=== PATIENT | male | born 1985 | race Caucasian/White ===

== ENCOUNTER 2016-06-19 18:22 | Emergency (ER) | payer MEDICARE, MEDICAID ==
[~2016-06-19] VITALS: Ht 182.9 cm; Wt 96.3 kg
[~2016-06-19 18:22] MED LIST: ACET-62 PO; ATEN50TA PO; IBUP-1724 PO; PROC-14 PO; QUET300T71 PO; SUVO10TA PO; VORT5TAB PO
[2016-06-19 18:25] VITALS: Ht 182.9 cm; Wt 96.3 kg
--- OUTSIDE RECORDS SUMMARY | 2016-06-19 18:27 | XMS REPORT | Continuity of Care Document ---
Author Author [facility] Address Unknown Phone Unavailable Care Team Providers Care Senior Technologist Name Role Phone CLINIC, [facility] Primary Care Physician [phone] Insurance Providers Guarantor Jennifer Singh Address [address] [facility] [address] [place] [address] Payer [facility] Plan Policy Number [id number] Subscriber's Name Jennifer Singh Relationship 01 Self / Same As Patient Payer [facility] Ppo/Hmo Policy Number [id number] Subscriber's Name Jennifer Singh Relationship 01 Self / Same As Patient Group Number [id number] Chief Complaint and Reason for Visit Chief Complaint Abdominal Pain Reason for Visit Drug abuse Hematuria Problems Active Problems Medical Problem Onset Date Status Infection kidney Unknown Acute Pyelonephritis acute Unknown Acute Renal colic on left side Unknown Acute Right flank pain Unknown Acute Ureterolithiasis Unknown Acute Ureterolithiasis Unknown Acute Past Problems Medical Problem Onset Date Abdominal pain Unknown Abdominal pain Unknown Dehydration Unknown Diarrhea Unknown Drug abuse Unknown Hematuria Unknown Hematuria Unknown Hematuria Unknown Hematuria Unknown History of colitis Unknown History of nephrolithiasis Unknown History of nephrolithiasis Unknown LLQ abdominal pain Unknown Low back pain Unknown Nausea and vomiting Unknown Nausea and vomiting Unknown RLQ abdominal pain Unknown RLQ abdominal pain Unknown Right flank pain Unknown UTI (urinary tract infection) Unknown UTI (urinary tract infection) Unknown Ulcerative colitis Unknown Urinary tract infection Unknown Urinary tract infection Unknown Medications Current Home Medications Medication Dose Units Route Directions Days Qty Instructions Start Date Atenolol 50 Mg Tab 50 Mg Oral Daily 08/17/15 Ciprofloxacin Hcl (Cipro) 500 Mg Tab 500 Mg Oral Twice A Day for Uti 14 Tablet 04/27/16 Diltiazem Hcl (Cardizem Cd) 240 Mg Capcr 240 Mg Oral Bedtime for Hypertension 10/31/13 Ondansetron (Zofran Odt) 4 Mg Tab 4 Mg Oral Every 6 Hours as needed for Nausea 8 Tablet 04/16/16 Oxycodone/Acetaminophen (Percocet) 5/325 Tab 1 Tab Oral Every 6 Hours as needed for Pain 10 Tablet 04/16/16 Propranolol Hcl (Propranolol Hcl 10MG) 10 Mg Tab 10 Mg Oral Twice A Day for Migraine 10/31/13 Quetiapine Fumarate (Seroquel) 200 Mg Tab 200 Mg Oral Bedtime 10/24 Sulfamethoxazole-Trimethoprim (Bactrim Ds) 1 Tab Tab 1 Tab Oral Twice A Day for Bactinf 14 Tablet 02/20/16 Sulfamethoxazole-Trimethoprim (Bactrim Ds) 1 Tab Tab 1 Tab Oral Twice A Day for Bactinf 14 Tablet 04/16/16 Past Home Medications Medication Directions Ordered Status Ciprofloxacin Hcl (Cipro) 500 Mg Tab, 500 Mg Oral Twice A Day for Bactinf 10/24 Discontinued Ciprofloxacin Hcl (Cipro) 500 Mg Tab, 500 Mg Oral Twice A Day 03/20/13 Discontinued Ciprofloxacin Hcl (Cipro) 500 Mg Tab, 500 Mg Oral Twice A Day 02/20/13 Discontinued Social History Social History Problem Response Recorded Date/Time Onset Date Status Hx Substance Use No 10/31/2013 3:44pm Not Applicable Not Applicable Smoking Status Former smoker 04/27/2016 9:59pm Not Applicable Not Applicable Query Response Start Date Stop Date Smoking Status Former smoker Hospital Discharge Instructions No hospital discharge instructions. Plan of Care Discharge Date 04/27/16 11:58pm Disposition 01 HOME, SELF-CARE Condition at Discharge Stable Instructions/Education Provided Urinary Tract Infection in Men (ED) Prescriptions See Medication Section Referrals [facility] Address: [address] [place] [address] Additional Instructions/Education follow up with your doctor tomorrow. Functional Status No functional status results. Allergies, Adverse Reactions, Alerts Allergen Type Severity Reaction Status Last Updated Codeine ([id number]) Allergy Intermediate Active 01/10/14 Dextromethorphan ([id number]) Adverse Reaction Mild KEEPS ME WIDE AWAKE Active 08/19/15 Diphenhydramine (H3393611766) Allergy Unknown Active 02/20/16 Doxylamine ([id number]) Adverse Reaction Mild KEEPS ME WIDE AWAKE Active 08/19/15 Haloperidol (H1917510276) Adverse Reaction Intermediate Change in Vital Signs Active 04/16/16 Morphine ([id number]) Allergy Mild HIVES Active 12/25/15 Pseudoephedrine (U2532057092) Adverse Reaction Mild KEEPS ME WIDE AWAKE Active 08/19/15 Ketorolac (U9327722349) Allergy Mild Active 01/10/14 Tramadol (M1309086120) Allergy Unknown HIVES PER PT 12/25/15 Active CI Pigment Blue 63 ([id number]) Allergy Unknown HIVES Active 04/16/16 Duloxetine (P5225938687) Allergy Unknown hives Active 08/18/15 Ketorolac Tromethamine (C0651220969) Allergy Unknown HIVES Active 04/16/16 PLASTIC TAPE Adverse Reaction Mild SKIN Active 03/08/14 Immunizations No immunization records. Vital Signs Acute Vital Signs Vital Response Date/Time Blood Pressure 133/89 mm Hg 04/27/2016 9:59pm Blood Pressure Mean 103 mm Hg 11/01/2013 11:30am Blood Pressure Mean 104 mm Hg 04/27/2016 9:59pm Temperature (Fahrenheit) 98.3 degrees F (96.0 - 99.9) 04/27/2016 9:59pm Temperature (Calculated Celsius) 36.29130 degrees C 04/27/2016 9:59pm Temperature Source Oral 11/01/2013 11:32am Temperature Source Oral 04/27/2016 9:59pm Temp 97.0 degrees F (96.0 - 99.9) 11/01/2013 11:39am Temperature (Calculated Celsius) 36.95985 degrees C 11/01/2013 11:39am Pulse Pulse Rate (adult) 100 bpm (60 - 100) 11/01/2013 12:00pm Pulse Rate (adult) 93 bpm (60 - 100) 11/01/2013 11:30am Pulse Rate: ED 123 bpm 04/27/2016 9:59pm Respiratory Rate 18 breaths per minute (10 - 20) 04/27/2016 9:59pm Respiratory Rate 14 bpm (10 - 20) 11/01/2013 11:30am Height (Feet) 6 ft 04/27/2016 9:59pm Height (Inches) 0 in. 04/27/2016 9:59pm Weight (Pounds) 225.0 lbs 04/27/2016 9:59pm Height 6 ft 0 in 04/27/2016 9:59pm Weight 225 lb 04/27/2016 9:59pm Body Mass Index 30.5 kg/m^2 04/27/2016 9:59pm Results Laboratory Results Test Name Result Units Flags Reference Collection Date/Time Result Date/ Time Comments Immature Platelet Fraction 4.5 % 2.3-13.4 03/08/2014 11:30pm 2014 12:14am Urine WBC Clumps NONE /hpf NONE 03/08/2014 11:30pm 03/09/2014 12:00am Urine Crystals NONE /hpf NONE 03/08/2014 11:30pm 03/09/2014 12:00am Urine Casts NONE /lpf NONE 03/08/2014 11:30pm 03/09/2014 12:00am Urine Other NONE 03/08/2014 11:30pm 03/09/2014 12:00am Urine Amorphous Sediment 3+ 12/25/2015 4:25pm 12/25/2015 5:24pm Urine Mucus 2+ /lpf NONE 04/16/2016 12:52am 04/16/2016 1:59am White Blood Count 8.8 K/uL 5.0-10.0 04/27/2016 10:20pm 04/27/2016 10: 47pm Red Blood Count 5.19 M/uL 4.60-5.40 04/27/2016 10:20pm 04/27/2016 10: 47pm Hemoglobin 14.5 g/dL 14.0-18.0 04/27/2016 10:20pm 04/27/2016 10:47pm Hematocrit 42.5 % 40.0-54.0 04/27/2016 10:20pm 04/27/2016 10:47pm Mean Corpuscular Volume 81.9 fL 80.0-94.0 04/27/2016 10:20pm 2016 10:47pm Mean Corpuscular Hemoglobin 27.9 pg 26.0-33.0 04/27/2016 10:202016 10:47pm Mean Corpuscular Hemoglobin Concent 34.1 g/dL 31.0-36.0 04/27/2016 10: 2004/27/2016 10:47pm Red Cell Distribution Width 14.2 % 11.5-14.5 04/27/2016 10:202016 10:47pm RDW Standard Deviation 41.7 fL 35.1-43.9 04/27/2016 10:20pm 04/27/2016 10:47pm Platelet Count 367 K/uL 130-400 04/27/2016 10:20pm 04/27/2016 10:47pm Mean Platelet Volume 10.0 fL 7.0-11.0 04/27/2016 10:20pm 04/27/2016 10: 47pm Neutrophils (%) (Auto) 58.6 % 42.0-75.0 04/27/2016 10:20pm 04/27/2016 10:47pm Lymphocytes (%) (Auto) 33.4 % 16.0-44.0 04/27/2016 10:04/27/2016 10:47pm Monocytes (%) (Auto) 5.7 % 2.0-9.0 04/27/2016 10:pm 04/27/2016 10: 47pm Eosinophils (%) (Auto) 1.6 % 0-7.0 04/27/2016 10:04/27/2016 10: 47pm Basophils (%) (Auto) 0.5 % 0-1 04/27/2016 10:04/27/2016 10:47pm Immature Granulocyte % (Auto) 0.2 % 0-0.5 04/27/2016 10:2016 10:47pm Nucleated Red Blood Cells % 0.0 /100WBC 0-0 04/27/2016 10:2016 10:47pm Neutrophils # (Auto) 5.1 K/uL 1.9-8.0 04/27/2016 10:04/27/2016 10: 47pm Lymphocytes # (Auto) 2.9 K/uL 0.9-5.2 04/27/2016 10:pm 04/27/2016 10: 47pm Monocytes # (Auto) 0.5 K/uL 0.16-1.0 04/27/2016 10:20pm 04/27/2016 10: 47pm Eosinophils # (Auto) 0.1 K/uL 0-0.8 04/27/2016 10:20pm 04/27/2016 10: 47pm Basophils # (Auto) 0.0 K/uL 0-0.2 04/27/2016 10:20pm 04/27/2016 10: 47pm Immature Granulocyte # (Auto) 0.02 K/uL 0-0.40 04/27/2016 10:20pm 04/27 10:47pm Nucleated Red Blood Cells # 0.00 K/uL 0.0-0.012 04/27/2016 10:20pm 10:47pm Urine Color BROWNISH YELLOW 04/27/2016 10:06pm 04/27/2016 10:54pm Urine Appearance CLOUDY 04/27/2016 10:06pm 04/27/2016 10:54pm Urine Glucose (UA) NEGATIVE NEGATIVE 04/27/2016 10:06pm 04/27/2016 10 :54pm Urine Bilirubin NEGATIVE NEGATIVE 04/27/2016 10:06pm 04/27/2016 10: 54pm Urine Ketones NEGATIVE NEGATIVE 04/27/2016 10:06pm 04/27/2016 10: 54pm Urine Specific [place] >=1.030 1.005-1.030 04/27/2016 10:06pm 2016 10:54pm Urine Occult Blood 3+ H NEGATIVE 04/27/2016 10:06pm 04/27/2016 10: 54pm Urine pH 5.5 4.5-8.0 04/27/2016 10:06pm 04/27/2016 10:54pm Urine Protein TRACE H NEGATIVE 04/27/2016 10:06pm 04/27/2016 10:54pm Urine Urobilinogen 0.2 E.U./dL 0.2-1.0 04/27/2016 10:06pm 04/27/2016 10 :54pm Urine Nitrate NEGATIVE NEGATIVE 04/27/2016 10:06pm 04/27/2016 10: 54pm Urine Leukocyte Esterase TRACE H NEGATIVE 04/27/2016 10:06pm 2016 10:54pm Urine RBC >100 /hpf H NONE 04/27/2016 10:06pm 04/27/2016 10:55pm Urine WBC 1-3 /hpf NONE 04/27/2016 10:06pm 04/27/2016 10:55pm Urine Epithelial Cells 50-75 /lpf 04/27/2016 10:06pm 04/27/2016 10: 55pm Urine Bacteria 1+ /hpf H NONE 04/27/2016 10:06pm 04/27/2016 10:55pm Random Glucose 112 mg/dL 65-115 04/27/2016 10:2004/27/2016 11:02pm Blood Urea Nitrogen 15 mg/dL 8-25 04/27/2016 10:20pm 04/27/2016 11: 02pm Creatinine 0.92 mg/dL 0.9-1.6 04/27/2016 10:20pm 04/27/2016 11:02pm Glomerular Filtration Rate Calc 97.27 mL/min 04/27/2016 10:2004/27 11:02pm MULTIPLY RESULT BY 1.210 IF THE PATIENT IS -ALBAN[place] Units are mL/min/1.73 m2 > 60 Normal kidney function 30-59 Moderately decreased kidney function 15-29 Severely decreased kidney function <15 End-stage kidney failure BUN/Creatinine Ratio 16.3 04/27/2016 10:20pm 04/27/2016 11:02pm Sodium Level 138 mEq/L 133-145 04/27/2016 10:20pm 04/27/2016 11:02pm Potassium Level 3.6 mEq/L 3.5-5.1 04/27/2016 10:2004/27/2016 11: 02pm Chloride Level 105 mEq/L 98-116 04/27/2016 10:2004/27/2016 11:02pm Carbon Dioxide Level 26 mEq/L 22-34 04/27/2016 10:2004/27/2016 11: 02pm Anion Gap 10.6 6-13 04/27/2016 10:2004/27/2016 11:02pm Calcium Level 9.9 mg/dL 8.2-10.6 04/27/2016 10:2004/27/2016 11:02pm Total Protein 7.6 gm/dL 6.0-8.4 04/27/2016 10:20pm 04/27/2016 11:02pm Albumin 4.3 gm/dL 3.2-5.0 04/27/2016 10:20pm 04/27/2016 11:02pm Globulin 3.3 gm/dL H 2.0-3.0 04/27/2016 10:20pm 04/27/2016 11:02pm Albumin/Globulin Ratio 1.3 L 1.4-2.4 04/27/2016 10:20pm 04/27/2016 11: 02pm Total Bilirubin 0.7 mg/dL 0.1-1.3 04/27/2016 10:20pm 04/27/2016 11: 02pm Alkaline Phosphatase 86 U/L 35-125 04/27/2016 10:20pm 04/27/2016 11: 02pm Aspartate Amino Transf (AST/SGOT) 28 U/L 540 04/27/2016 10:20pm 2016 11:02pm Alanine Aminotransferase (ALT/SGPT) 24 U/L 540 04/27/2016 10:20pm 11:02pm Lipase 41 U/L 8-57 04/27/2016 10:20pm 04/27/2016 11:02pm Urine Amphetamines Screen Negative NEGATIVE 04/27/2016 10:06pm 2016 11:02pm Urine Methamphetamines Screen Negative NEGATIVE 04/27/2016 10:06pm 11:02pm Urine Barbiturates Screen Negative NEGATIVE 04/27/2016 10:06pm 2016 11:02pm Urine Benzodiazepines Screen Negative NEGATIVE 04/27/2016 10:06pm 11:02pm Urine Cocaine Screen Negative NEGATIVE 04/27/2016 10:06pm 04/27/2016 11:02pm Urine Methadone Screen Negative NEGATIVE 04/27/2016 10:06pm 2016 11:02pm Urine Opiates Screen Negative NEGATIVE 04/27/2016 10:06pm 04/27/2016 11:02pm Urine Phencyclidine Screen Negative NEGATIVE 04/27/2016 10:06pm 04/27 11:02pm Urine Propoxyphene Screen Negative NEGATIVE 04/27/2016 10:06pm 2016 11:02pm Ur Tetrahydrocannabinol (THC) Scrn POSITIVE NEGATIVE 04/27/2016 10: 06pm 04/27/2016 11:02pm Ur Tricyclic Antidepressants Screen Negative NEGATIVE 04/27/2016 10: 06pm 04/27/2016 11:02pm Urine Buprenorphine NEGATIVE NEGATIVE 04/27/2016 10:06pm 04/27/2016 11:02pm Urine Oxycodone Screen NEGATIVE NEGATIVE 04/27/2016 10:06pm 2016 11:02pm Bedside Glucose 113 mg/dL 70-120 11/01/2013 7:26am 11/01/2013 7:29am Notify medical staff Microbiology Results Procedure Source Organism/Result Collection Date/Time Result Date/Time Result Status Urine Culture Urine,Clean Catch >100,000 CFU/ML MIXED BODY GABBY AFTER 2 DAYS 04/16/2016 12:52am 04/18/2016 8:01am Final Procedures Procedure Status Date Provider(s) THER/PROPH/DIAG INJ IV PUSH Completed 03/08/14 JANIE JESUS M.D. TX/PRO/DX INJ NEW DRUG ADDON Completed 03/08/14 JANIE JESUS M.D. THER/PROPH/DIAG INJ IV PUSH Completed 08/17/15 GIUSEPPE,TREMAYNE Quintanilla D.O. TX/PRO/DX INJ NEW DRUG ADDON Completed 08/17/15 GIUSEPPE,TREMAYNE Quintanilla D.O. HYDRATE IV INFUSION ADD-ON Completed 08/17/15 GIUSEPPE,TREMAYNE Quintanilla D.O. THER/PROPH/DIAG INJ IV PUSH Completed 09/28/15 FROILAN MARQUES M.D. TX/PRO/DX INJ NEW DRUG ADDON Completed 09/28/15 FROILAN MARQUES M.D. TX/PRO/DX INJ NEW DRUG ADDON Completed 09/28/15 FROILAN MARQUES M.D. HYDRATE IV INFUSION ADD-ON Completed 09/28/15 FROILAN MARQUES M.D. THER/PROPH/DIAG INJ IV PUSH Completed 10/05/15 GIUSEPPE,TREMAYNE Quintanilla D.O. HYDRATE IV INFUSION ADD-ON Completed 10/05/15 BIBIILLOT,TREMAYNE Quintainlla D.O. HYDRATE IV INFUSION ADD-ON Completed 10/05/15 BIBIILLOT,TREMAYNE Quintanilla D.O. THER/PROPH/DIAG INJ IV PUSH Completed 12/25/15 JUANPABLO AUGUSTE M.D. TX/PRO/DX INJ NEW DRUG ADDON Completed 12/25/15 JUANPABLO AUGUSTE M.D. HYDRATE IV INFUSION ADD-ON Completed 12/25/15 JUANPABLO AUGUSTE M.D. THER/PROPH/DIAG INJ SC/IM Completed 12/25/15 JUANPABLO AUGUSTE M.D. THER/PROPH/DIAG INJ IV PUSH Completed 12/30/15 JUANPABLO AUGUSTE M.D. TX/PRO/DX INJ NEW DRUG ADDON Completed 12/30/15 JUANPABLO AUGUSTE M.D. TX/PRO/DX INJ SAME DRUG AZURE ARCHITECT Completed 12/30/15 JUANPABLO AUGUSTE M.D. HYDRATE IV INFUSION ADD-ON Completed 12/30/15 JUANPABLO AUGUSTE M.D. THER/PROPH/DIAG INJ SC/IM Completed 12/30/15 JUANPABLO AUGUSTE M.D. THER/PROPH/DIAG INJ IV PUSH Completed 02/20/16 FROILAN MARQUES M.D. TX/PRO/DX INJ NEW DRUG ADDON Completed 02/20/16 FROILAN MARQUES M.D. HYDRATE IV INFUSION ADD-ON Completed 02/20/16 FROILAN MARQUES M.D. KNEE ARTHROSCOPY/SURGERY Completed 11/01/13 JOSHUA CARTWRIGHT M.D. Repair of knee cruciate ligaments (procedure) Completed 11/01/13 JOSHUA CARTWRIGHT M.D. Encounters Encounter Location Arrival/Admit Date Discharge/Depart Date Attending Provider Departed Emergency Room [facility] 04/27/16 9:58pm 11:58pm YOSEPH BAUTISTA M.D. Departed Emergency Room [facility] 04/16/16 12:41am 2:28am JUANPABLO AUGUSTE M.D. Departed Emergency Room [facility] 02/20/16 7:38pm 9:25pm FROILAN MARQUES M.D. Departed Emergency Room [facility] 12/30/15 9:03pm 11:30pm JUANPABLO AUGUSTE M.D. Departed Emergency Room [facility] 12/25/15 4:13pm 6:02pm JUANPABLO AUGUSTE M.D. Departed Emergency Room [facility] 10/05/15 4:37pm 6:42pm TREMAYNE CHIN D.O. Departed Emergency Room [facility] 09/28/15 5:43pm 11:02pm FROILAN MARQUES M.D. Departed Emergency Room [facility] 08/17/15 2:20pm 4:45pm TREMAYNE CHIN D.O. Departed Emergency Room [facility] 03/10/15 8:26pm 10:08pm CARLOS ORTA M.D. Departed Emergency Room [facility] 09/25/14 6:47pm 9:00pm CARLOS ORTA M.D. Departed Emergency Room [facility] 03/12/14 7:27pm 8:59pm CARLOS ORTA M.D. Departed Emergency Room [facility] 03/08/14 11:08pm 1:03am JANIE JESUS M.D. Departed Surgical Day Care [facility] 11/01/13 7:10am 12:12pm JOSHUA CARTWRIGHT M.D. Recent Diagnosis
--- OUTSIDE RECORDS SUMMARY | 2016-06-19 18:27 | XMS REPORT ---
Author Author [place] [facility] - Organization Unknown Address Unknown Phone Unavailable Allergies, Adverse Reactions, Alerts * Cymbalta causes Adverse Reaction. * Haldol causes Adverse Reaction. * NyQuil causes Severe Adverse Reaction, Severe Adverse Reaction, Severe Adverse Reaction and Severe Adverse Reaction. Onset Adulthood. * Codeine causes Unknown tachycardia. Onset Adulthood. * Toradol causes Unknown Adverse Reaction. * Tape (as Environmental allergen) causes Severe Adverse Reaction. Onset Adulthood. * No Latex Allergy. * No IV Contrast Allergy. * No Known Food Allergies. Problems * Abdominal Pain* Status:Inactive. * Anxiety* Status:Active. * Crohn's Disease* Status:Inactive. * Depression* Status:Active. * Difficulty Sleeping* Status:Inactive. * Difficulty Sleeping* Status:Resolved. * Drug Overdose* Status:Resolved. * Drug Overdose - Suicide* Status:Inactive. * Hypertensive Disorder* Status:Inactive. * Kelly* Status:Inactive. * Ulcerative Colitis* Status:Active. Procedures No relevant procedures performed. Medication Medication reconciliation has not been performed. Results LAB--URINE TESTS from 08/31/2012 4:11 PMAppearance Turbid A Bilirubin Negative (Negative ) Blood Pos 3+ A (Negative ) Color [place]anner A Glucose Negative (Negative ) Ketones, Urine Pos 2+ A (Negative ) Leukocytes Esterase Negative (Negative ) Nitrites Negative (Negative ) pH, Urine 7.0 (5.0-8.0 ) Protein Pos 1+ A (Negative ) Specific [place] 1.027 (1.003-1.030 ) Collection Type: Clean Catch Urobilinogen Negative mg/dL (-<1.0 mg/dL) Bacteria Numerous A Crystals Ca Ox Crystals Amorphous Epithelial Cells 0-2 /HPF Mucus Present RBC >50 /HPF A (0-2 /HPF) WBC 5-10 /HPF A (0-4 /HPF)
--- OUTSIDE RECORDS SUMMARY | 2016-06-19 18:29 | XMS REPORT | Continuity of Care Document ---
Author Author [facility] Organization [facility] Address Unknown Phone Unavailable Care Team Providers Care Health Education Coordinator Name Role Phone GERONIMO DOYLE MD Primary Care Physician [phone] Insurance Providers Payer Name Policy Number Subscriber Name Relationship Medicare [id number] Jennifer Singh Self [facility] [id number] Jennifer Singh 20 Self Advance Directives Directive Response Recorded Date/Time Advanced Directives Type None 04/20/14 10:00pm Problems Medical Problems Problem Onset Date Status Nephrolithiasis Unknown Active Renal colic Unknown Active Rectal bleeding Unknown Active Acute Crohn's disease Unknown Active Abdominal pain Unknown Active Crohn disease Unknown Active Crohn disease Unknown Active Abdominal pain Unknown Active Hematuria Unknown Active Flank pain Unknown Active Abdominal pain Unknown Active Hematuria Unknown Active Hematuria Unknown Active Abdominal pain Unknown Active Hematuria Unknown Active Enteritis Unknown Active UTI (urinary tract infection) Unknown Active Hematuria Unknown Active Medications Medication Dose Route Sig Days/Qty Instructions Order Date Discontinued Date Status Fluoxetine HCl 40 Mg PO DAILY 02/18/14 Active Nebivolol HCl 20 Mg PO DAILY 02/18/14 Active Diltiazem HCl 240 Mg PO DAILY 02/18/14 Active Acetaminophen Unknown Dose PO 02/21/14 Active Ibuprofen Unknown Dose PO Q4H PRN 02/21/14 Active Sucralfate 1 G PO BEFORE MEALS AND AT BEDTIME Take 1 tablet, by mouth, 4 times a day (Before EACH meal and 04/17/14 Active Celecoxib 1 Cap PO TWICE A DAY 04/17/14 Active Meloxicam 7.5 Mg PO DAILY PRN PRN ORDERS 04/17/14 Active Propranolol HCl 10 Mg PO BEDTIME 04/17/14 Active Quetiapine Fumarate 2 Tab PO BEDTIME Take 2 (300 mg) tablets, by mouth, once a day at bedtime. 04/17/14 Active Sulfasalazine 1,000 Mg PO THREE TIMES A DAY 04/17/14 Active Tizanidine HCl 1 BEDTIME 04/17/14 Active Diazepam 1 THREE TIMES A DAY 04/17/14 Active Olanzapine 10 Mg PO BEDTIME Take one tablet, by mouth, daily at bedtime. 04/17/14 Active Zonisamide 300 Mg BEDTIME 04/17/14 Active Metronidazole 500 Mg PO Q6H/0300,0900,1500,2100 For ENTERITIS 7 Days Active Hydrocodone/Acetaminophen 1 Tab PO EVERY 4-6 HOURS For PAIN 12 Qty Active Social History Social History Problem Response Recorded Date/Time Chewing Tobacco Status No 03/09/2013 1:23am Hx Substance Use No 04/20/2014 10:00pm Hx Alcohol Use No 04/20/2014 10:00pm Tobacco Usage none 02/18/2014 7:57pm Query Response Start Date Stop Date Smoking Status Unknown if ever smoked Hospital Discharge Instructions No hospital discharge instructions. Plan of Care No plan of care. Functional Status Query Response Date Recorded Physical Hygiene Self April 20, 2014 10:00pm Disabilities None April 20, 2014 10:00pm Devices Used None April 20, 2014 10:00pm Dressing Self April 20, 2014 10:00pm Ambulation Self April 20, 2014 10:00pm Diet Self April 20, 2014 10:00pm Mental Status Alert Oriented April 20, 2014 10:00pm Disabilities None April 20, 2014 10:00pm Devices Used None April 20, 2014 10:00pm Physical Hygiene Self April 20, 2014 10:00pm Dressing Self April 20, 2014 10:00pm Ambulation Self April 20, 2014 10:00pm Diet Self April 20, 2014 10:00pm Allergies, Adverse Reactions, Alerts Allergen Type Severity Reaction Status Last Updated dextromethorphan HBr Allergy Severe THROAT SWELLING, HIVES Active 04/20/14 pseudoephedrine HCl Allergy Severe THROAT SWELLING, HIVES Active 04/20/14 Haloperidol Allergy Unknown RASH Active 04/20/14 Codeine Allergy Severe Active 04/20/14 Doxylamine Allergy Severe THROAT SWELLING, HIVES Active 04/20/14 Ketorolac Allergy Unknown RASH Active 04/20/14 Duloxetine Allergy Unknown RASH Active 04/20/14 PLASTIC TAPE Allergy Mild Active 02/21/14 Immunizations Name Given Type Hx Influenza Vaccination Y FALL 2013 Historical Hx Influenza Vaccination Y FALL 2013 Historical Vital Signs Acute Vital Signs Vital Response Date/Time Temperature (Fahrenheit) 96.8 deg F (96.8 - 99.1) Temperature (Calculated Celsius) 36.01232 degrees C (36.0 - 37.3) Pulse Rate (adult) 86 bpm (60 - 100) Respiratory Rate 24 breaths/min (10 - 20) O2 Sat by Pulse Oximetry 94 % (90 - 100) Blood Pressure 118/90 mm Hg Height 5 ft 11 in Weight 222 lb Body Mass Index 31.0 kg/m^2 Results Test Source Date Result Interp. Ref. Range Comments Alanine Aminotransferase (ALT/SGPT) April 20, 2014 10:55pm 50 U/L N 21- 72 Albumin April 20, 2014 10:55pm 4.6 G/DL N 3.5-5.0 Albumin/Globulin Ratio April 20, 2014 10:55pm 1.6 RATIO N 1.1-2.2 Alkaline Phosphatase April 20, 2014 10:55pm 98 U/L N 38-126 Amylase Level April 20, 2014 10:55pm 72 U/L N 30-110 Anion Gap April 20, 2014 10:55pm 15 MEQ/L N 5-15 Aspartate Amino Transf (AST/SGOT) April 20, 2014 10:55pm 30 U/L N 17-59 BUN/Creatinine Ratio April 20, 2014 10:55pm 17 RATIO N 6-26 Basophils # (Auto) April 20, 2014 10:55pm 0.0 T/MM3 N 0-0.2 Basophils (%) (Auto) April 20, 2014 10:55pm 0.3 % N 0-2 Blood Urea Nitrogen April 20, 2014 10:55pm 17.0 MG/DL N 9-20 Calcium Level April 20, 2014 10:55pm 10.1 MG/DL N 8.4-10.2 Calculated Osmolality April 20, 2014 10:55pm 288 MOSM/KG H 261-280 Carbon Dioxide Level April 20, 2014 10:55pm 25 MEQ/L N 22-30 Chemistry Specimen Hemolysis April 20, 2014 10:55pm < 15 0-25 0-25: No Hemolysis.26-70: Slight Hemolysis - can falsely elevate K and Urine Protein. 71-285: Moderate Hemolysis - can falsely elevate K, Troponin I, CA 19-9, PTH, CSF GLucose, and Urine Protein, and can falsely decrease Phenytoin. 286-999: Gross Hemolysis - can falsely elevate K, Troponin I, CA 19-9, PTH, CSF Glucose, and Urine Protine, and can falsely decrease Phenytoin. Recommend specimen recollection. Chloride Level April 20, 2014 10:55pm 109 MEQ/L H 98-107 Creatinine April 20, 2014 10:55pm 1.0 MG/DL N 0.8-1.5 Eosinophils # (Auto) April 20, 2014 10:55pm 0.2 T/MM3 N 0-0.5 Eosinophils # (Manual) February 22, 2014 12:30am 0.1 T/MM3 N 0-0.5 Eosinophils % (Manual) February 22, 2014 12:30am 1.0 % N 0-4 Eosinophils (%) (Auto) April 20, 2014 10:55pm 1.1 % N 0-4 Globulin April 20, 2014 10:55pm 2.8 G/DL N 2.4-3.6 Glomerular Filtration Rate Calc April 20, 2014 10:55pm 90 - Glucose Level April 20, 2014 10:55pm 95 MG/DL N 75-110 Hematocrit April 20, 2014 10:55pm 43.6 % N 41-53 Hemoglobin April 20, 2014 10:55pm 15.2 GM/DL N 13.5-17.5 Icterus Index April 20, 2014 10:55pm < 2 0-7 Immature Granulocyte # (Auto) April 20, 2014 10:55pm 0.03 T/MM3 N 0.00- 0.03 Immature Granulocyte % (Auto) April 20, 2014 10:55pm 0.2 % N 0.0-0.5 Lab Scanned Report September 26, 2009 9:28am REFERENCE LAB [id number] - Lipase April 20, 2014 10:55pm 136 U/L N 23-300 Lymphocytes # (Auto) April 20, 2014 10:55pm 1.9 T/MM3 N 1-4.8 Lymphocytes # (Manual) February 22, 2014 12:30am 3.8 T/MM3 N 1-4.8 Lymphocytes % (Manual) February 22, 2014 12:30am 37.0 % N 23-45 Lymphocytes (%) (Auto) April 20, 2014 10:55pm 13.0 % L 23-45 Mean Corpuscular Hemoglobin April 20, 2014 10:55pm 31.4 UUG N 26-34 Mean Corpuscular Hemoglobin Concent April 20, 2014 10:55pm 34.9 GM/DL N 31-37 Mean Corpuscular Volume April 20, 2014 10:55pm 90.1 UM3 N 80-100 Mean Platelet Volume April 20, 2014 10:55pm 9.4 UM3 N 9.4-12.4 Monocytes # (Auto) April 20, 2014 10:55pm 1.1 T/MM3 H 0-0.8 Monocytes # (Manual) February 22, 2014 12:30am 0.3 T/MM3 N 0-0.8 Monocytes % (Manual) February 22, 2014 12:30am 3.0 % N 0-9.0 Monocytes (%) (Auto) April 20, 2014 10:55pm 7.2 % N 0-9.0 Neutrophils # (Auto) April 20, 2014 10:55pm 11.7 T/MM3 H 1.8-7.7 Neutrophils # (Manual) February 22, 2014 12:30am 6.1 T/MM3 N 1.8-7.7 Neutrophils % (Manual) February 22, 2014 12:30am 59.0 % N 33-66 Neutrophils (%) (Auto) April 20, 2014 10:55pm 78.2 % H 33-66 Platelet Count April 20, 2014 10:55pm 290 T/MM3 N 130-400 Potassium Level April 20, 2014 10:55pm 4.2 MEQ/L N 3.6-5 RDW Standard Deviation April 20, 2014 10:55pm 44.7 FL N 36.9-50.2 Red Blood Count April 20, 2014 10:55pm 4.84 M/MM3 N 4.50-5.90 Sodium Level April 20, 2014 10:55pm 149 MEQ/L H 134-144 Total Bilirubin April 20, 2014 10:55pm 0.40 MG/DL N 0.20-1.30 Total Protein April 20, 2014 10:55pm 7.4 G/DL N 6.3-8.2 Turbidity April 20, 2014 10:55pm < 20 0-20 Urinalysis Comment February 18, 2014 8:30pm Microscopic not ind. - Has specimen been collected/obtained? Y Urine Bacteria April 20, 2014 10:10pm 2+ H - Has specimen been collected/obtained? Y Urine Bilirubin April 20, 2014 10:10pm Negative - Has specimen been collected/obtained? Y Urine Blood April 20, 2014 10:10pm 3+ H - Has specimen been collected/ obtained? Y Urine Collection Type April 20, 2014 10:10pm Voided-not cc-midstr - Has specimen been collected/obtained? Y Urine Color April 20, 2014 10:10pm Yellow - Has specimen been collected/obtained? Y Urine Culture Indicated February 22, 2014 12:15am Cult reflexed &setup - Has specimen been collected/obtained? Y Urine Glucose (UA) April 20, 2014 10:10pm Negative - Has specimen been collected/obtained? Y Urine Ketones April 20, 2014 10:10pm Negative - Has specimen been collected/obtained? Y Urine Leukocyte Esterase April 20, 2014 10:10pm Negative - Has specimen been collected/obtained? Y Urine Nitrite April 20, 2014 10:10pm Negative - Has specimen been collected/obtained? Y Urine Protein April 20, 2014 10:10pm Trace H - Has specimen been collected/obtained? Y Urine RBC April 20, 2014 10:10pm 20-30 /HPF H - Has specimen been collected/obtained? Y Urine Specific [place] April 20, 2014 10:10pm >=1.030 H - Has specimen been collected/obtained? Y Urine Squamous Epithelial Cells April 20, 2014 10:10pm 20-50 - Has specimen been collected/obtained? Y Urine Turbidity April 20, 2014 10:10pm Sl cloudy - Has specimen been collected/obtained? Y Urine Urobilinogen April 20, 2014 10:10pm 0.2 EU/DL - Has specimen been collected/obtained? Y Urine WBC April 20, 2014 10:10pm 5-10 /HPF H - Has specimen been collected/obtained? Y Urine pH April 20, 2014 10:10pm 5.5 - Has specimen been collected/ obtained? Y Valproic Acid (Depakene) Level September 23, 2009 3:00pm 23 UG/ML L 50-120 White Blood Count April 20, 2014 10:55pm 14.9 T/MM3 H 4.5-11.0 Urine Culture Urine, Clean Catch-Midstream February 22, 2014 1:00am Mixed Casandra Prob. Contaminants Name: JENNIFER SINGH Unit #: [id number] : 1985 Sex: M Loc / Svc: ED DOS: 04/17/14 Signed Report #: [id number] DIAGNOSTIC IMAGING REPORT TYPE OF EXAM: CT RENAL W/O CONTRAST Dictated By: MOSES SANCHEZ MD Indication: ITS.REASON: right flank pain and RLQ pain, hematuria CT RENAL W/O CONTRAST: Comparison: February 22, 2014 and March 09, 2013 Technique: Axial CT images were performed through the abdomen and pelvis without intravenous contrast. Findings: Atelectasis in the lung bases. Heart size is stable. The unenhanced contours of the liver are unremarkable. The gallbladder, spleen, pancreas and adrenal glands are within normal limits. The kidneys are normal. No evidence of stone disease or hydronephrosis. No ureteral stones. The appendix is gas-filled and normal in a retrocecal location. Bladder is normal. Prostate and rectum are within normal limits. No free fluid. No evidence of a bowel obstruction. Bone windows are unremarkable. Small focus of gas incidentally noted adjacent to the left sacroiliac joint, unchanged from the comparison studies. Impression: Stable exam without evidence of urolithiasis or clear etiology for the patient's hematuria. . Procedures Procedure Status Date Provider(s) X-RAY EXAM SERIES ABDOMEN completed 02/18/14 COMPREHEN METABOLIC PANEL completed 02/18/14 URINALYSIS AUTO W/O SCOPE completed 02/18/14 ASSAY OF AMYLASE completed 02/18/14 ASSAY OF LIPASE completed 02/18/14 COMPLETE CBC W/AUTO DIFF WBC completed 02/18/14 HYDRATE IV INFUSION ADD-ON completed 02/18/14 THER/PROPH/DIAG INJ IV PUSH completed 02/18/14 TX/PRO/DX INJ NEW DRUG ADDON completed 02/18/14 TX/PRO/DX INJ NEW DRUG ADDON completed 02/18/14 TX/PRO/DX INJ NEW DRUG ADDON completed 02/18/14 TX/PRO/DX INJ SAME DRUG LIVESTOCK RANCH HAND completed 02/18/14 TX/PRO/DX INJ SAME DRUG LIVESTOCK RANCH HAND completed 02/18/14 EMERGENCY DEPT VISIT completed 02/18/14"INJECTION, PANTOPRAZOLE SODIUM, PER VIAL" completed 02/18/14"INJECTION, HYDROMORPHONE, UP TO 4 MG" completed 02/18/14"INJECTION, HYDROMORPHONE, UP TO 4 MG" completed 02/18/14"INJECTION, HYDROMORPHONE, UP TO 4 MG" completed 02/18/14"INJECTION, ONDANSETRON HYDROCHLORIDE, PER 1 MG" completed 02/18/14"INJECTION, PROMETHAZINE HCL, UP TO 50 MG" completed 02/18/14"INJECTION, METHYLPREDNISOLONE SODIUM SUCCINATE, UP TO completed "INFUSION, NORMAL SALINE SOLUTION , 1000 CC" completed 02/18/14 ROUTINE VENIPUNCTURE completed 02/21/14 CT ABD & PELV W/CONTRAST completed 02/21/14 COMPREHEN METABOLIC PANEL completed 02/21/14 URINALYSIS AUTO W/SCOPE completed 02/21/14 ASSAY OF LIPASE completed 02/21/14 BL SMEAR W/DIFF WBC COUNT completed 02/21/14 COMPLETE CBC AUTOMATED completed 02/21/14 URINE CULTURE/COLONY COUNT completed 02/21/14 THER/PROPH/DIAG INJ IV PUSH completed 02/21/14 TX/PRO/DX INJ NEW DRUG ADDON completed 02/21/14 TX/PRO/DX INJ NEW DRUG ADDON completed 02/21/14 EMERGENCY DEPT VISIT completed 02/21/14"INJECTION, PROCHLORPERAZINE, UP TO 10 MG" completed 02/21/14"INJECTION, HYDROMORPHONE, UP TO 4 MG" completed 02/21/14"INJECTION, METOCLOPRAMIDE HCL, UP TO 10 MG" completed 02/21/14"INFUSION, NORMAL SALINE SOLUTION , 1000 CC" completed 02/21/14"INFUSION, NORMAL SALINE SOLUTION , 250 CC" completed 02/21/14"LOW OSMOLAR CONTRAST MATERIAL, 300-399 MG/ML IODINE C completed Encounters Encounter Location Date/Time Registered Emergency Room [facility] 04/20/14 9:55pm Departed Emergency Room [facility] 04/17/14 1:13pm Departed Emergency Room [facility] 02/21/14 10:18pm Departed Emergency Room [facility] 02/18/14 6:33pm Recent Diagnosis
--- OUTSIDE RECORDS SUMMARY | 2016-06-19 18:29 | XMS REPORT ---
Author Author [facility] - Organization Unknown Address Unknown Phone Unavailable [...] Medication reconciliation has not been performed. Results LAB--BEDSIDE TESTING from 12/14/2012 1:46 AMAnion Gap NPT 18 (3-20 ) BUN Venous NPT 4 mg/dl (4-20 mg/dl) Calcium Ionized Venous 1.21 mmol/L (1.19-1.41 mmol/L) Venous CL NPT 105 mEq/L (99-109 mEq/L) Creatinine Venous NPT 1.1 mg/dL (0.7-1.2 mg/dL) Glucose Venous 109 mg/dL H (70-100 mg/dL) HCT Venous NPT 42.0 % (42.0-52.0 %) HGB Venous NPT 14.3 g/dL (14.0-18.0 g/dL) Potassium Venous 2.9 mEq/L L (3.6-5.1 mEq/L) Sodium Venous 143 mEq/L (136-144 mEq/L) Total CO2 Venous 20 mEq/L L (25-29 mEq/L) LAB--URINE TESTS from 12/14/2012 1:48 AMAppearance Clear Bilirubin Negative (Negative ) Blood Negative (Negative ) Color Yellow Glucose Negative (Negative ) Ketones, Urine Negative (Negative ) Leukocytes Esterase Negative (Negative ) Nitrites Negative (Negative ) pH, Urine 6.5 (5.0-8.0 ) Protein Negative (Negative ) Specific [place] 1.011 (1.003-1.030 ) Collection Type: Clean Catch Urobilinogen Negative mg/dL (-<1.0 mg/dL)
--- OUTSIDE RECORDS SUMMARY | 2016-06-19 18:31 | XMS REPORT | Continuity of Care Document ---
Author Author [facility] Organization [facility] Address Unknown Phone Unavailable Care Team Providers Care Director Weights And Measures Name Role Phone GERONIMO DOYLE M.D. Primary Care Physician [phone] Insurance Providers Payer Name Policy Number Subscriber Name Relationship s Medicare [id number] Jennifer Singh Self / Same As Patient [facility] [id number] Jennifer Singh Self / Same As Patient Advance Directives Directive Response Recorded Date/Time Patient Resuscitation Status Full Code 11/01/13 8:55am Chief Complaint and Reason for Visit Chief Complaint Flank Pain Reason for Visit Pyelonephritis acute Problems Medical Problems Problem Onset Date Status Infection kidney Unknown Active Pyelonephritis acute Unknown Active Medications Medication Dose Route Sig Days/Qty Instructions Order Date Discontinued Date Status Ciprofloxacin Hcl 500 Mg PO TWICE A DAY 14 Days 02/20/13 03/07/13 Discontinued Ciprofloxacin Hcl 500 Mg PO TWICE A DAY 14 Days 03/20/13 04/04/13 Discontinued Diltiazem Hcl 240 Mg PO BEDTIME 10/31/13 Active Sucralfate 1 Gm PO 4 TIMES DAILY AC & HS 10/31/13 Active Fluoxetine Hcl 10 Mg PO TWICE A DAY 10/31/13 Active Propranolol Hcl 10 Mg PO TWICE A DAY 10/31/13 Active Quetiapine Fumarate 600 Mg PO BEDTIME 10/31/13 Active Tizanidine Hcl 4 Mg PO BEDTIME 10/31/13 Active Alprazolam 2 Mg PO Every 8 hours as needed 10/31/13 Active Citalopram Hydrobromide 20 Mg PO TWICE A DAY 10/31/13 Active Nebivolol Hcl 40 Mg PO BEDTIME 10/31/13 Active Social History Social History Problem Response Recorded Date/Time Hx Substance Use No 10/31/2013 3:44pm Smoking Status Former smoker 11/01/2013 8:55am Query Response Start Date Stop Date Smoking Status Former smoker Hospital Discharge Instructions No hospital discharge instructions. Plan of Care Discharge Date 03/20/13 1:40am Disposition 01 HOME, SELF-CARE Condition at Discharge Stable Instructions/Education Provided Acute Pyelonephritis (ED) Prescriptions See Medications Section Referrals SARA WINTERS I. DMiguelOMiguel Functional Status Query Response Date Recorded Overall Activities Daily Living Ability/Staff Support Independ/No setup help November 01, 2013 8:55am Memory Description Short term intact skilled nursing intact November 01, 2013 8:55am Allergies, Adverse Reactions, Alerts Allergen Type Severity Reaction Status Last Updated Codeine Allergy Intermediate Active 02/20/13 Duloxetine hydrochloride Allergy Unknown Active 02/20/13 Haloperidol Allergy Intermediate Change in Vital Signs Active 02/20/13 Ketorolac Allergy Mild Active 02/20/13 Morphine Allergy Mild HIVES Active 10/31/13 Immunizations Name Given Type Pneumonia Vaccine Received No Historical Had a Tetanus Toxoid Vaccination less than 10yrs ago Yes Historical influenza, inj, quadrivalent, preservative free 11/01/13 Administered Vital Signs Acute Vital Signs Vital Response Date/Time Temp 97.0 degrees F (96.0 - 99.9) 11/01/2013 11:39am Temperature (Calculated Celsius) 36.15094 degrees C 11/01/2013 11:39am Height 5 ft 11 in 11/01/2013 11:39am Weight 190 lb 11/01/2013 11:39am Body Mass Index 26.68 11/01/2013 11:39am Results Test Source Date Result Interp. Ref. Range Comments Alanine Aminotransferase (ALT/SGPT) February 20, 2013 8:34pm 61 U/L H 5- 40 Albumin February 20, 2013 8:34pm 4.0 gm/dL N 3.2-5.0 Albumin/Globulin Ratio February 20, 2013 8:34pm 1.5 N 1.4-2.4 Alkaline Phosphatase February 20, 2013 8:34pm 85 U/L N 35-125 Anion Gap November 01, 2013 7:39am 9.6 N 6-13 Aspartate Amino Transf (AST/SGOT) February 20, 2013 8:34pm 48 U/L H 5-40 BUN/Creatinine Ratio November 01, 2013 7:39am 7.7 Basophils # (Auto) November 01, 2013 7:39am 0.1 K/uL N 0-0.2 Basophils (%) (Auto) November 01, 2013 7:39am 0.7 % N 0-1 Bedside Glucose November 01, 2013 7:26am 113 mg/dL N 70-120 Notify medical staff Blood Urea Nitrogen November 01, 2013 7:39am 6 mg/dL L 8-25 Calcium Level November 01, 2013 7:39am 9.7 mg/dL N 8.2-10.6 Carbon Dioxide Level November 01, 2013 7:39am 25 mEq/L N 22-34 Chloride Level November 01, 2013 7:39am 109 mEq/L N 98-116 Creatinine November 01, 2013 7:39am 0.78 mg/dL L 0.9-1.6 Eosinophils # (Auto) November 01, 2013 7:39am 0.3 K/uL N 0-0.8 Eosinophils (%) (Auto) November 01, 2013 7:39am 4.3 % N 0-7.0 Globulin February 20, 2013 8:34pm 2.7 gm/dL N 2.0-3.0 Glomerular Filtration Rate Calc November 01, 2013 7:39am > 60.00 mL/min MULTIPLY RESULT BY 1.210 IF THE PATIENT IS -AMERICANUnits are mL/ min/1.73 m2 > 60 Normal kidney function 30-59 Moderately decreased kidney function 15-29 Severely decreased kidney function <15 End-stage kidney failure Hematocrit November 01, 2013 7:39am 45.7 % N 40.0-54.0 Hemoglobin November 01, 2013 7:39am 16.0 g/dL N 14.0-18.0 Immature Granulocyte # (Auto) November 01, 2013 7:39am 0.02 K/uL N 0- 0.40 Immature Granulocyte % (Auto) November 01, 2013 7:39am 0.3 % N 0-0.5 Lymphocytes # (Auto) November 01, 2013 7:39am 2.6 K/uL N 0.9-5.2 Lymphocytes (%) (Auto) November 01, 2013 7:39am 35.4 % N 16.0-44.0 Mean Corpuscular Hemoglobin November 01, 2013 7:39am 30.4 pg N 26.0- 33.0 Mean Corpuscular Hemoglobin Concent November 01, 2013 7:39am 35.0 g/dL N 31.0-36.0 Mean Corpuscular Volume November 01, 2013 7:39am 86.7 fL N 80.0-94.0 Mean Platelet Volume November 01, 2013 7:39am 9.4 fL N 7.0-11.0 Monocytes # (Auto) November 01, 2013 7:39am 0.5 K/uL N 0.16-1.0 Monocytes (%) (Auto) November 01, 2013 7:39am 7.1 % N 2.0-9.0 Neutrophils # (Auto) November 01, 2013 7:39am 3.8 K/uL N 1.9-8.0 Neutrophils (%) (Auto) November 01, 2013 7:39am 52.2 % N 42.0-75.0 Nucleated Red Blood Cells # November 01, 2013 7:39am 0.00 K/uL N 0.0- 0.012 Nucleated Red Blood Cells % November 01, 2013 7:39am 0.0 /100WBC N 0-0 Platelet Count November 01, 2013 7:39am 286 K/uL N 130-400 Potassium Level November 01, 2013 7:39am 3.6 mEq/L N 3.5-5.1 RDW Standard Deviation November 01, 2013 7:39am 40.3 fL N 35.1-43.9 Random Glucose November 01, 2013 7:39am 99 mg/dL N 65-115 Red Blood Count November 01, 2013 7:39am 5.27 M/uL N 4.60-5.40 Red Cell Distribution Width November 01, 2013 7:39am 13.0 % N 11.5- 14.5 Sodium Level November 01, 2013 7:39am 140 mEq/L N 133-145 Total Bilirubin February 20, 2013 8:34pm 0.3 mg/dL N 0.1-1.3 Total Protein February 20, 2013 8:34pm 6.7 gm/dL N 6.0-8.4 Urine Appearance March 19, 2013 10:27pm Cloudy SOURCE: URINE, CLEAN CATCH Urine Bacteria March 19, 2013 10:27pm Trace /hpf NONE SOURCE: URINE, CLEAN CATCH Urine Bilirubin March 19, 2013 10:27pm Negative NEGATIVE SOURCE: URINE, CLEAN CATCH Urine Color March 19, 2013 10:27pm Yellow/red SOURCE: URINE, CLEAN CATCH Urine Epithelial Cells March 19, 2013 10:27pm Moderate /lpf SOURCE: URINE, CLEAN CATCH Urine Glucose (UA) March 19, 2013 10:27pm Negative NEGATIVE SOURCE : URINE, CLEAN CATCH Urine Ketones March 19, 2013 10:27pm Negative NEGATIVE SOURCE: URINE, CLEAN CATCH Urine Leukocyte Esterase March 19, 2013 10:27pm 1+ H NEGATIVE SOURCE : URINE, CLEAN CATCH Urine Nitrate March 19, 2013 10:27pm Positive H NEGATIVE SOURCE: URINE, CLEAN CATCH Urine Occult Blood March 19, 2013 10:27pm 3+ H NEGATIVE SOURCE: URINE, CLEAN CATCH Urine Protein March 19, 2013 10:27pm Trace H NEGATIVE SOURCE: URINE , CLEAN CATCH Urine RBC March 19, 2013 10:27pm 75 /hpf NONE SOURCE: URINE, CLEAN CATCH Urine Specific [place] March 19, 2013 10:27pm 1.015 1.005-1.030 SOURCE: URINE, CLEAN CATCH Urine Urobilinogen March 19, 2013 10:27pm 0.2 E.U./dL 0.2-1.0 SOURCE: URINE, CLEAN CATCH Urine WBC March 19, 2013 10:27pm 1-3 /hpf NONE SOURCE: URINE, CLEAN CATCH Urine WBC Clumps March 19, 2013 10:27pm None /hpf NONE SOURCE: URINE, CLEAN CATCH Urine pH March 19, 2013 10:27pm 7.5 4.5-8.0 SOURCE: URINE, CLEAN CATCH White Blood Count November 01, 2013 7:39am 7.3 K/uL N 5.0-10.0 Procedures Procedure Status Date Provider(s) THER/PROPH/DIAG INJ IV PUSH completed 02/20/13 ALEXIS LAROSE M.D. TX/PRO/DX INJ NEW DRUG ADDON completed 02/20/13 MEANS,ALEXIS Day M.D. HYDRATE IV INFUSION ADD-ON completed 02/20/13 ALEXIS LAROSE M.D. THER/PROPH/DIAG INJ IV PUSH completed 03/19/13 SPICER,ANABEL Hanley M.D. TX/PRO/DX INJ NEW DRUG ADDON completed 03/19/13 SPICER,ANABEL Hanley M.D. TX/PRO/DX INJ SAME DRUG MANAGER TRANSPLANT completed 03/19/13 SPICER,ANABEL Hanley M.D. HYDRATE IV INFUSION ADD-ON completed 03/19/13 SPICER,ANABEL Hanley M.D. Encounters Encounter Location Date/Time Departed Emergency Room [facility] 03/19/13 10:08pm [facility] 02/20/13 8:00pm
--- OUTSIDE RECORDS SUMMARY | 2016-06-19 18:33 | XMS REPORT ---
Author Author [facility], [facility] - Organization Unknown Address Unknown Phone Unavailable Allergies, Adverse Reactions, Alerts * NyQuil causes Severe Adverse Reaction, Severe Adverse Reaction, Severe Adverse Reaction and Severe Adverse Reaction. Onset Adulthood. * Codeine causes Unknown tachycardia. Onset Adulthood. * Toradol causes Unknown Adverse Reaction. * Tape (as Environmental allergen) causes Severe Adverse Reaction. Onset Adulthood. * Latex Allergy has not been assessed. * IV Contrast Allergy has not been assessed. * No Known Food Allergies. Problems * Abdominal Pain* Status:Active. * Anxiety* Status:Active. * Crohn's Disease* Status:Active. * Depression* Status:Active. * Difficulty Sleeping* Status:Inactive. * Difficulty Sleeping* Status:Active. * Drug Overdose* Status:Resolved. * Drug Overdose - Suicide* Status:Inactive. * Hypertensive Disorder* Status:Inactive. * Kelly* Status:Inactive. Procedures No Procedures Documented. Medication Medication reconciliation has not been performed. Results LAB--BEDSIDE TESTING from 05/19/2012 12:54 AMAnion Gap NPT 13 (3-20 ) BUN Venous NPT 8 mg/dl (4-20 mg/dl) Calcium Ionized Venous 1.22 mmol/L (1.19-1.41 mmol/L) Venous CL NPT 105 mEq/L (99-109 mEq/L) Creatinine Venous NPT 1.0 mg/dL (0.7-1.2 mg/dL) Glucose Venous 100 mg/dL (70-100 mg/dL) HCT Venous NPT 48.0 % (42.0-52.0 %) HGB Venous NPT 16.3 g/dL H (14.0-16.0 g/dL) Potassium Venous 3.5 mEq/L L (3.6-5.1 mEq/L) Sodium Venous 145 mEq/L H (136-144 mEq/L) Total CO2 Venous 27 mEq/L (25-29 mEq/L) LAB--CHEMISTRY from 05/19/2012 12:56 AMAnion Gap 9 (3-20 ) Albumin 3.9 g/dL (3.5-4.8 g/dL) Alkaline Phosphatase 96 U/L (26-104 U/L) ALT (SGPT) 23 U/L (17-63 U/L) AST (SGOT) 25 U/L (15-41 U/L) Bilirubin Total 0.6 mg/dL (0.2-1.2 mg/dL) BUN 7 mg/dL (4-20 mg/dL) Calcium 9.4 mg/dL (8.6-10.0 mg/dL) Chloride 105 mEq/L (99-109 mEq/L) CO2 27 mEq/L (22-32 mEq/L) Creatinine 1.00 mg/dL (0.64-1.27 mg/dL) eGFR >60 (>60- ) Globulin 3.0 g/dL (1.9-4.3 g/dL) Glucose 102 mg/dL H (70-100 mg/dL) Potassium 3.5 mEq/L L (3.6-5.1 mEq/L) Sodium 141 mEq/L (136-144 mEq/L) Protein 6.9 g/dL (6.1-7.9 g/dL) Lipase 33 U/L (8-48 U/L) LAB--HEMATOLOGY from 05/19/2012 12:56 AMAbsolute Basophils 0.04 THOUS (0.00-0.20 THOUS) Absolute Eosinophils 0.21 THOUS (0.00-0.50 THOUS) Absolute Lymphocytes 3.50 THOUS H (0.80-3.30 THOUS) Absolute Monocytes 0.68 THOUS (0.30-1.00 THOUS) Absolute Neutrophils 7.57 THOUS H (1.90-7.00 THOUS) HCT 46.1 % (42.0-52.0 %) HGB 15.9 g/dl (14.0-18.0 g/dl) MCH 30.0 pg (27.0-32.0 pg) MCHC 34.5 g/dL (32.0-36.0 g/dL) MCV 87.0 fL (82.0-99.0 fL) MPV 10.3 fL (9.4-12.3 fL) Platelet Count 388 K/uL (150-400 K/uL) RBC 5.30 M/uL (4.60-6.20 M/uL) RDW 13.7 % (11.5-14.5 %) WBC 12.0 K/uL H (4.8-10.8 K/uL) Basophils 0 % (0-2 %) Eosinophils 2 % (0-4 %) Immature Granulocytes 0.2 % (0.0-1.0 %) Lymphocytes 29 % (20-46 %) Monocytes 6 % (4-11 %) Nucleated RBC Automated 0.0 /100 WBC (0 /100 WBC) Neutrophils 63 % (51-75 %)
--- OUTSIDE RECORDS SUMMARY | 2016-06-19 18:36 | XMS REPORT | Referral Summary ---
Author Author [facility] Organization [facility] Address Unknown Phone Unavailable Care Team Providers Care Orthopedic Physical Therapist Name Role Phone No PCP, Pt States Primary Care Physician [phone] Encounter VC Date(s): 03/22/16 - 03/22/16 [facility] [address] [place] [address] Discharge Diagnosis: Contusion of rib Discharge Disposition: 01-Home or Self Care Attending Physician: Yared Addison MD Admitting Physician: Yared Addison MD Vital Signs Most recent to 1 oldest [Reference Range]: Temperature Oral 36.9 degC [35.8-37.3 degC] (03/22/16 5:02 PM) Peripheral Pulse 134 bpm Rate [60-100 bpm] *HI* (03/22/16 5:02 PM) Respiratory Rate 18 br/min [14-20 br/min] (03/22/16 5:02 PM) Blood Pressure 136/96 mmHg [90-140/60-90 mmHg] (03/22/16 5:02 PM) SpO2 98 % (03/22/16 5:02 PM) Problem List Condition Effective Dates Status Health Status Informant Abdominal Resolved pain(Confirmed) Abdominal 08/30/13 Active pain(Confirmed) Abdominal Resolved pain(Confirmed) Abdominal pain of Active unknown etiology(Confirmed) Medication Active overdose(Confirmed) Acute Active pain(Confirmed) [place] 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) Anxiety(Confirmed) Active patient [place] III: Active patient Asthma(Confirmed) At risk for Active injury(Confirmed)1 Benign Active hematuria(Confirmed) Benign Active hematuria(Confirmed) Bipolar(Confirmed) Active patient Bipolar disorder, Active most recent episode depressed(Confirmed) [place] I: Bipolar Active disease, by hx(Confirmed) [place] III: Crohn Active disease(Confirmed) Depression(Confirmed Active patient ) Abdominal pain, Active chronic, generalized(Confirme d) Tachycardia(Confirme Active patient d) Hematuria(Confirmed) 08/30/13 Active Intractable nausea Active and vomiting(Confirmed) [place] III: Active patient Hypertension(Confirm ed) Ineffective coping Active (individual)(Confirm ed)2 [place] I: Active patient Insomnia(Confirmed) Kidney Active patient stones(Confirmed) Lumbago(Confirmed) Active Migraines(Confirmed) Active patient Nausea(Confirmed) 08/30/13 Active Obesity(Confirmed) Active patient Obesity(Confirmed) Active patient Tobacco Active patient user(Confirmed) Ulcerative Active patient colitis(Confirmed) 1Problem added automatically by system based on initiation of Risk for Injury Plan of Care 2Problem added automatically by system based on initiation of Ineffective Coping Plan of Care Allergies, Adverse Reactions, Alerts Substance Reaction Severity Status Cymbalta Hives Mild Active doxylamine cant sleep Mild Active Haldol1 HIVES Severe Active Nyquil Cold & Flu Hives Medium Active pseudoephedrine cant sleep Mild Active Tape2 Adverse Reaction Severe Active Toradol3 Hives Mild Active Ultram Hive Medium Active 1tachycardia 2hives 3HIVES Medications atenolol 50 mg oral tablet 50 mg 1 tabs, Oral, Bedtime (once a day), 0 Refill(s) Start Date: 08/20/15 Status: Ordered Colace 100 mg oral capsule 100 mg 1 caps, Oral, BID, as needed for constipation, # 20 caps, 0 Refill(s) Start Date: 11/27/15 Stop Date: 12/07/15 Status: Ordered Effexor XR 37.5 mg oral capsule, extended release 75 mg 2 caps, Oral, Daily, # 60 caps, 0 Refill(s), Indication: depression/ anxiety, Pharmacy: [facility] Effie, 2 caps Oral Daily Start Date: 05/17/15 Status: Ordered hyoscyamine 0.125 mg oral tablet 0.125 mg 1 tabs, Oral, TID, as needed for spasm, # 12 tabs, 0 Refill(s) Start Date: 01/25/16 Status: Ordered ibuprofen 800 mg oral tablet 800 mg 1 tabs, Oral, q8hr, X 5 days, # 15 tabs, 0 Refill(s) Start Date: 03/22/16 Stop Date: 03/27/16 Status: Ordered Imitrex 100 mg, Oral, Daily, as needed for migraine headache, may repeat dose in 2 hours if needed, 0 Refill(s) Start Date: 05/14/15 Status: Ordered Levsin 0.125 mg oral tablet 0.125 mg 1 tabs, Oral, QID, as needed for spasm, # 20 tabs, 0 Refill(s) Start Date: 03/19/16 Status: Ordered Medrol Dosepak 4 mg oral tablet 1 packets, Oral, Once, as directed on package labeling, # 21 tabs, 0 Refill(s) Start Date: 01/25/16 Status: Ordered methocarbamol 500 mg oral tablet 1,500 mg 3 tabs, Oral, TID, 0800, 1400 and 2000, 0 Refill(s), Indication: muscle relaxer Start Date: 05/14/15 Status: Ordered potassium chloride 20 mEq oral tablet, extended release 20 mEq 1 tabs, Oral, Daily, # 7 tabs, 0 Refill(s) Start Date: 03/04/16 Stop Date: 03/11/16 Status: Ordered prazosin 5 mg, Oral, Bedtime (once a day), 0 Refill(s), Indication: nightmares Start Date: 05/14/15 Status: Ordered ProAir HFA 90 mcg/inh inhalation aerosol 2 puffs, Inhalation, q4hr, as needed for wheezing, 0 Refill(s) Start Date: 01/07/15 Status: Ordered QUEtiapine 200 mg oral tablet, extended release 200 mg 1 tabs, Oral, Bedtime (once a day), # 30 tabs, 0 Refill(s), Indication: mood stabil/sleep/anxiety, Pharmacy: [facility] Start Date: 05/17/15 Status: Ordered Viberzi 100 mg oral tablet 100 mg 1 tabs, Oral, BID, with food, 0 Refill(s) Start Date: 08/20/15 Status: Ordered Results No data available for this section Immunizations Given and Recorded Vaccine Date Status Refusal Reason influenza virus vaccine, inactivated 01/09/15 Given influenza virus vaccine, live 03/16/13 Given tetanus-diphth toxoids (Td) adult/adol 09/09/13 Given tetanus-diphth toxoids (Td) adult/adol 07/02/02 Given Procedures Procedure Date Related Diagnosis Body Site Cystoscopy Lithotripsy Ureteral Stone 01/16/14 (Right)1 Cystoscopy Stone Extraction (Right)2 01/16/14 Cystoscopy Ureteroscopy (Right)3 01/16/14 Cystoscopy with Insertion of Ureteral Ca 01/16/14 (Right)4 ACL (anterior cruciate ligament) tear Ankle Colonoscopy Endoscopy Knee meniscus Myringotomy 1auto-populated from documented surgical case 2auto-populated from documented surgical case 3auto-populated from documented surgical case 4auto-populated from documented surgical case Social History Social History Type Response Smoking Status Former smoker; Type: Cigarettes; Tobacco use per day: Less than Pack1, 2, 3, 4, 5, 6 1denies 2Pt states that he quit smoking approx 6 months ago. 3pt states he quit 14 days ago 4pt states has not smoked in 4wks 5pt states he quit smoking 5 years ago 6quit 2 yrs ago Assessment and Plan No data available for this section
--- OUTSIDE RECORDS SUMMARY | 2016-06-19 18:37 | XMS REPORT | Referral Summary ---
Author Author [facility] Organization [facility] Address Unknown Phone Unavailable Care Team Providers Care Ct Mri Technologist Name Role Phone No PCP, Pt States Primary Care Physician [phone] Encounter VC Date(s): 04/03/16 - 04/03/16 [facility] [address] [place] [address] [phone] Discharge Diagnosis: Chronic pain Discharge Diagnosis: Lt flank pain Discharge Diagnosis: Hematuria Discharge Disposition: 01-Home or Self Care Attending Physician: Yared Addison MD Admitting Physician: Yared Addison MD Referring Physician: Self Referred, X Vital Signs Most recent to 1 oldest [Reference Range]: Temperature Oral 36.7 degC [35.8-37.3 degC] (04/03/16 12:37 PM) Peripheral Pulse 121 bpm Rate [60-100 bpm] *HI* (04/03/16 12:37 PM) Respiratory Rate 18 br/min [14-20 br/min] (04/03/16 12:37 PM) Blood Pressure 126/96 mmHg [90-140/60-90 mmHg] (04/03/16 12:37 PM) SpO2 100 % (04/03/16 12:37 PM) Problem List Condition Effective Dates Status Health Status Informant Abdominal Resolved pain(Confirmed) Abdominal 08/30/13 Active pain(Confirmed) Abdominal Resolved pain(Confirmed) Abdominal pain of Active unknown etiology(Confirmed) Medication Active overdose(Confirmed) Acute Active pain(Confirmed) [place] 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) Anxiety(Confirmed) Active patient [place] III: Active patient Asthma(Confirmed) At risk for Active injury(Confirmed)1 Benign Active hematuria(Confirmed) Benign Active hematuria(Confirmed) Bipolar(Confirmed) Active patient Bipolar disorder, Active most recent episode depressed(Confirmed) [place] I: Bipolar Active disease, by hx(Confirmed) [place] III: Crohn Active disease(Confirmed) Depression(Confirmed Active patient ) Abdominal pain, Active chronic, generalized(Confirme d) Tachycardia(Confirme Active patient d) Hematuria(Confirmed) 08/30/13 Active Intractable nausea Active and vomiting(Confirmed) [place] III: Active patient Hypertension(Confirm ed) Ineffective coping Active (individual)(Confirm ed)2 [place] I: Active patient Insomnia(Confirmed) Kidney Active patient [...] Mild Active Tape2 Adverse Reaction Severe Active Tape Active Toradol3 Hives Mild Active Ultram Hive Medium Active 1tachycardia 2hives 3HIVES Medications Ambien Oral, Bedtime (once a day), 0 Refill(s) Start Date: 03/30/16 Status: Ordered atenolol 50 mg oral tablet 50 mg [...] caps, 0 Refill(s), Indication: depression/ anxiety, Pharmacy: [facility] Yenny Chou, 2 caps Oral Daily Start Date: 05/17/15 Status: Ordered hyoscyamine 0.125 mg oral tablet 0.125 mg 1 tabs, Oral, TID, as needed for spasm, # 12 tabs, 0 Refill(s) Start Date: 01/25/16 Status: Ordered Imitrex 100 mg, Oral, Daily, [...] tabs, 0 Refill(s), Indication: mood stabil/sleep/anxiety, Pharmacy: [facility] Start Date: 05/17/15 Status: Ordered SEROquel Oral, 0 Refill(s) Start Date: 03/30/16 Status: Ordered Viberzi 100 mg oral tablet 100 mg 1 tabs, Oral, BID, with food, 0 Refill(s) Start Date: 08/20/15 Status: Ordered Results Hematology Most recent to 1 oldest [Reference Range]: WBC [4.8-10.8 4.7 10*3/uL 10*3/uL] *LOW* (04/03/16 1:53 PM) RBC [4.60-6.20] 5.06 (04/03/16 1:53 PM) Hgb [14.0-18.0 14.1 gm/dL gm/dL] (04/03/16 1:53 PM) Hct [42.0-52.0 %] 43.1 % (04/03/16 1:53 PM) MCV [82.0-99.0 fL] 85.2 fL (04/03/16 1:53 PM) MCH [27.0-32.0 pg] 27.9 pg (04/03/16 1:53 PM) MCHC [32.0-36.0 32.7 gm/dL gm/dL] (04/03/16 1:53 PM) RDW [11.5-14.5 %] 14.2 % (04/03/16 1:53 PM) Platelet [150-400 284 10*3/uL 10*3/uL] (04/03/16 1:53 PM) MPV [9.4-12.3 fL] 9.8 fL (04/03/16 1:53 PM) Immature 0.0 % Granulocytes (04/03/16 1:53 PM) [0.0-1.0 %] Neutrophils [51-75 51 % %] (04/03/16 1:53 PM) Lymphocytes [20-46 41 % %] (04/03/16 1:53 PM) Monocytes [4-11 %] 6 % (04/03/16 1:53 PM) Eosinophils [0-4 %] 2 % (04/03/16 1:53 PM) Basophils [0-2 %] 1 % (04/03/16 1:53 PM) Neutro Absolute 2.36 [1.90-7.00] (04/03/16 1:53 PM) Lymph Absolute 1.89 [0.80-3.30] (04/03/16 1:53 PM) [place] Absolute 0.30 [0.30-1.00] (04/03/16 1:53 PM) Eos Absolute 0.09 [0.00-0.50] (04/03/16 1:53 PM) Baso Absolute 0.03 [0.00-0.20] (04/03/16 1:53 PM) Nucleated RBC 0.0 /100 WBC Automated [0 /100 (04/03/16 1:53 PM) WBC] Chemistry Most recent to 1 oldest [Reference Range]: Sodium Lvl [136-144 142 mEq/L mEq/L] (04/03/16 1:52 PM) Potassium Lvl 4.0 mEq/L [3.6-5.1 mEq/L] (04/03/16 1:52 PM) Chloride [99-109 108 mEq/L mEq/L] (04/03/16 1:52 PM) CO2 [22-32 mEq/L] 25 mEq/L (04/03/16 1:52 PM) AGAP [3-20] 9 (04/03/16 1:52 PM) BUN [4-20 mg/dL] 2 mg/dL *LOW* (04/03/16 1:52 PM) Glucose Lvl [70-100 98 mg/dL mg/dL] (04/03/16 1:52 PM) Creatinine Lvl 0.74 mg/dL [0.64-1.27 mg/dL] (04/03/16 1:52 PM) eGFR [>60] >60 1 (04/03/16 1:52 PM) Calcium Lvl 9.5 mg/dL [8.6-10.0 mg/dL] (04/03/16 1:52 PM) Albumin Lvl [3.5-4.8 4.0 gm/dL gm/dL] (04/03/16 1:52 PM) Total Protein 7.1 gm/dL [6.1-7.9 gm/dL] (04/03/16 1:52 PM) Globulin [1.9-4.3 3.1 gm/dL gm/dL] (04/03/16 1:52 PM) ALT [17-63 U/L] 74 U/L *HI* (04/03/16 1:52 PM) AST [15-41 U/L] 71 U/L *HI* (04/03/16 1:52 PM) Alk Phos [26-104 108 U/L U/L] *HI* (04/03/16 1:52 PM) Bili Total [0.2-1.2 0.4 mg/dL 2 mg/dL] (04/03/16 1:52 PM) Lipase Lvl [8-48 42 U/L U/L] (04/03/16 1:52 PM) 1Result Comment: Multiply eGFR results by 1.21 for race. 2Result Comment: Naproxen, specifically the metabolite O-desmethylnaproxen, may cause spurious elevation in Total Bilirubin levels. Urinalysis Most recent to 1 oldest [Reference Range]: UA Color Red *ABN* (04/03/16 1:40 PM) UA Appear Cloudy *ABN* (04/03/16 1:40 PM) UA pH [5.0-8.0] 5.0 (04/03/16 1:40 PM) UA Leuk Est Trace [Negative] *ABN* (04/03/16 1:40 PM) UA Nitrite Negative [Negative] (04/03/16 1:40 PM) UA Protein Pos 1+ [Negative] *ABN* (04/03/16 1:40 PM) UA Glucose Negative [Negative] (04/03/16 1:40 PM) UA Ketones Negative [Negative] (04/03/16 1:40 PM) UA Urobilinogen Negative [<1.0] (04/03/16 1:40 PM) UA Bili [Negative] Negative (04/03/16 1:40 PM) UA Blood [Negative] Pos 3+ *ABN* (04/03/16 1:40 PM) UA Spec Grav 1.005 [1.003-1.030] (04/03/16 1:40 PM) Type Catheter (04/03/16 1:40 PM) UA WBC [0-4] 5-10 *ABN* (04/03/16 1:40 PM) UA RBC [0-2 /HPF] >50 /HPF *ABN* (04/03/16 1:40 PM) Epithelial Cells 5-10 (04/03/16 1:40 PM) UA Bacteria Occasional *ABN* (04/03/16 1:40 PM) UA Mucous Present (04/03/16 1:40 PM) Immunizations Given and Recorded Vaccine Date Status [...]
[2016-06-19 18:38] LABS: BLOOD, URINE 3+ (NEGATIVE); COLOR,URINE YELLOW (YELLOW); LEUKOCYTE ESTERASE ,URINE TRACE (NEGATIVE); NITRITE,URINE NEGATIVE (NEGATIVE)
--- OUTSIDE RECORDS SUMMARY | 2016-06-19 18:38 | XMS REPORT | Continuity of Care Document ---
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 Primary Care Physician [phone] Insurance Providers Payer Name Policy Number Subscriber Name Relationship [employer] [id number] Jennifer Singh Self / Same As Patient [facility] [id number] Jennifer Singh Self / Same As Patient Chief Complaint and Reason for Visit Chief Complaint Hematuria Reason for Visit Right flank pain Problems Medical Problems Problem Onset Date Status Infection kidney Unknown Active Pyelonephritis acute Unknown Active Ureterolithiasis Unknown Active Ureterolithiasis Unknown Active Right flank pain Unknown Active Medications Medication Dose Route Sig Days/Qty Instructions Order Date Discontinued Date Status Ciprofloxacin Hcl 500 Mg PO TWICE A DAY 14 Days 02/20/13 03/07/13 Discontinued Ciprofloxacin Hcl 500 Mg PO TWICE A DAY 14 Days 03/20/13 04/04/13 Discontinued Diltiazem Hcl 240 Mg PO BEDTIME For Hypertension 10/31/13 Active Sucralfate 1 Gm PO 4 TIMES DAILY AC & HS For Esophagitis/GERD Active Fluoxetine Hcl 10 Mg PO TWICE A DAY For Not specified 10/31/13 Active Propranolol Hcl 10 Mg PO TWICE A DAY For Migraine 10/31/13 Active Quetiapine Fumarate 600 Mg PO BEDTIME For Not specified 10/31/13 Active Tizanidine Hcl 4 Mg PO BEDTIME For Not specified 10/31/13 Active Alprazolam 2 Mg PO Every 8 hours as needed PRN ANXIETY 10/31/13 Active Citalopram Hydrobromide 20 Mg PO TWICE A DAY For Not specified Active Nebivolol Hcl 40 Mg PO BEDTIME For Hypertension 10/31/13 Active Hydrocodone-Acetaminophen 1-2 Tab PO q6h PRN PAIN 10 Qty 03/09/14 Active Tamsulosin Hcl 0.4 Mg PO DAILY For Not specified 10 Qty take until passage of stone 03/09/14 Active Social History Social History Problem Response Recorded Date/Time Hx Substance Use No 10/31/2013 3:44pm Smoking Status Former smoker 03/12/2014 7:32pm Query Response Start Date Stop Date Smoking Status Former smoker Hospital Discharge Instructions No hospital discharge instructions. Plan of Care Discharge Date 03/12/14 8:59pm Disposition 01 HOME, SELF-CARE Condition at Discharge Stable Instructions/Education Provided Renal Colic (ED) Prescriptions See Medications Section Referrals GERONIMO DOYLE M.D. Additional Instructions/Education 1. followup with your doctor in 2-[address] Calabrsee for an appointment. 2. Use Tylenol or Motrin as needed for pain. 3. Continue using your previously prescribed Zofran for nausea. Functional Status No functional status results. Allergies, Adverse Reactions, Alerts Allergen Type Severity Reaction Status Last Updated Acetaminophen Adverse Reaction Mild KEEPS ME WIDE AWAKE Active 03/08/14 Codeine Allergy Intermediate Active 01/10/14 Dextromethorphan Adverse Reaction Mild KEEPS ME WIDE AWAKE Active 03/08/14 Doxylamine Adverse Reaction Mild KEEPS ME WIDE AWAKE Active 03/08/14 Ethanol Adverse Reaction Mild KEEPS ME WIDE AWAKE Active 03/08/14 Haloperidol Allergy Intermediate Change in Vital Signs Active 01/10/14 Morphine Allergy Mild HIVES Active 01/10/14 Pseudoephedrine Adverse Reaction Mild KEEPS ME WIDE AWAKE Active 03/08/14 Ketorolac Allergy Mild Active 01/10/14 CI Pigment Blue 63 Allergy Mild HIVES Active 03/08/14 Duloxetine Allergy Unknown Active 01/10/14 PLASTIC TAPE Adverse Reaction Mild SKIN Active 03/08/14 Immunizations Name Given Type influenza, inj, quadrivalent, preservative free 11/01/13 Administered Vital Signs Acute Vital Signs Vital Response Date/Time Blood Pressure 139/89 mm Hg Blood Pressure Mean 103 mm Hg Blood Pressure Mean 106 mm Hg Temperature (Fahrenheit) 97.8 degrees F (96.0 - 99.9) Temperature (Calculated Celsius) 36.47247 degrees C Temperature Source Oral Temperature Source Oral Temp 97.0 degrees F (96.0 - 99.9) Temperature (Calculated Celsius) 36.50128 degrees C Pulse Pulse Rate (adult) 100 bpm (60 - 100) Pulse Rate (adult) 93 bpm (60 - 100) Pulse Rate: ED 104 bpm Respiratory Rate 18 breaths per minute (10 - 20) Respiratory Rate 14 bpm (10 - 20) Height (Feet) 5 ft Height (Inches) 11 in. Weight (Pounds) 218 lbs Results Test Source Date Result Interp. Ref. Range Comments Alanine Aminotransferase (ALT/SGPT) February 20, 2013 8:34pm 61 U/L H 5- 40 Albumin February 20, 2013 8:34pm 4.0 gm/dL N 3.2-5.0 Albumin/Globulin Ratio February 20, 2013 8:34pm 1.5 N 1.4-2.4 Alkaline Phosphatase February 20, 2013 8:34pm 85 U/L N 35-125 Anion Gap March 08, 2014 11:30pm 12.6 N 6-13 Aspartate Amino Transf (AST/SGOT) February 20, 2013 8:34pm 48 U/L H 5-40 BUN/Creatinine Ratio March 08, 2014 11:30pm 28.8 Basophils # (Auto) March 08, 2014 11:30pm 0.1 K/uL N 0-0.2 Basophils (%) (Auto) March 08, 2014 11:30pm 0.3 % N 0-1 Bedside Glucose November 01, 2013 7:26am 113 mg/dL N 70-120 Notify medical staff Blood Urea Nitrogen March 08, 2014 11:30pm 23 mg/dL N 8-25 Calcium Level March 08, 2014 11:30pm 10.4 mg/dL N 8.2-10.6 Carbon Dioxide Level March 08, 2014 11:30pm 24 mEq/L N 22-34 Chloride Level March 08, 2014 11:30pm 110 mEq/L N 98-116 Creatinine March 08, 2014 11:30pm 0.80 mg/dL L 0.9-1.6 Eosinophils # (Auto) March 08, 2014 11:30pm 0.0 K/uL N 0-0.8 Eosinophils (%) (Auto) March 08, 2014 11:30pm 0.0 % N 0-7.0 Globulin February 20, 2013 8:34pm 2.7 gm/dL N 2.0-3.0 Glomerular Filtration Rate Calc March 08, 2014 11:30pm > 60.00 mL/min MULTIPLY RESULT BY 1.210 IF THE PATIENT IS -AMERICANUnits are mL/ min/1.73 m2 > 60 Normal kidney function 30-59 Moderately decreased kidney function 15-29 Severely decreased kidney function <15 End-stage kidney failure Hematocrit March 08, 2014 11:30pm 43.1 % N 40.0-54.0 Hemoglobin March 08, 2014 11:30pm 14.5 g/dL N 14.0-18.0 Immature Granulocyte # (Auto) March 08, 2014 11:30pm 0.22 K/uL N 0- 0.40 Immature Granulocyte % (Auto) March 08, 2014 11:30pm 1.2 % H 0-0.5 Immature Platelet Fraction March 08, 2014 11:30pm 4.5 % N 2.3-13.4 Lymphocytes # (Auto) March 08, 2014 11:30pm 2.0 K/uL N 0.9-5.2 Lymphocytes (%) (Auto) March 08, 2014 11:30pm 10.9 % L 16.0-44.0 Mean Corpuscular Hemoglobin March 08, 2014 11:30pm 31.0 pg N 26.0- 33.0 Mean Corpuscular Hemoglobin Concent March 08, 2014 11:30pm 33.6 g/dL N 31.0-36.0 Mean Corpuscular Volume March 08, 2014 11:30pm 92.1 fL N 80.0-94.0 Mean Platelet Volume March 08, 2014 11:30pm 9.7 fL N 7.0-11.0 Monocytes # (Auto) March 08, 2014 11:30pm 1.3 K/uL H 0.16-1.0 Monocytes (%) (Auto) March 08, 2014 11:30pm 7.2 % N 2.0-9.0 Neutrophils # (Auto) March 08, 2014 11:30pm 14.4 K/uL H 1.9-8.0 Neutrophils (%) (Auto) March 08, 2014 11:30pm 80.4 % H 42.0-75.0 Nucleated Red Blood Cells # March 08, 2014 11:30pm 0.00 K/uL N 0.0- 0.012 Nucleated Red Blood Cells % March 08, 2014 11:30pm 0.0 /100WBC N 0-0 Platelet Count March 08, 2014 11:30pm 376 K/uL N 130-400 Potassium Level March 08, 2014 11:30pm 3.6 mEq/L N 3.5-5.1 RDW Standard Deviation March 08, 2014 11:30pm 49.1 fL H 35.1-43.9 Random Glucose March 08, 2014 11:30pm 121 mg/dL H 65-115 Red Blood Count March 08, 2014 11:30pm 4.68 M/uL N 4.60-5.40 Red Cell Distribution Width March 08, 2014 11:30pm 14.6 % H 11.5-14.5 Sodium Level March 08, 2014 11:30pm 143 mEq/L N 133-145 Total Bilirubin February 20, 2013 8:34pm 0.3 mg/dL N 0.1-1.3 Total Protein February 20, 2013 8:34pm 6.7 gm/dL N 6.0-8.4 Urine Amorphous Sediment March 08, 2014 11:30pm 3+ SOURCE: URINE , CLEAN CATCH Urine Appearance March 12, 2014 7:50pm Cloudy SOURCE: URINE, CLEAN CATCH Urine Bacteria March 12, 2014 7:50pm 4+ /hpf H NONE THIS SPECIMEN MEETS MEDICAL STAFF CRITERIAFOR A URINE CULTURE. A CULTURE HAS BEEN SET. Urine Bilirubin March 12, 2014 7:50pm Negative NEGATIVE SOURCE: URINE, CLEAN CATCH Urine Casts March 08, 2014 11:30pm None /lpf NONE SOURCE: URINE, CLEAN CATCH Urine Color March 12, 2014 7:50pm Yellow SOURCE: URINE, CLEAN CATCH Urine Crystals March 08, 2014 11:30pm None /hpf NONE SOURCE: URINE , CLEAN CATCH Urine Epithelial Cells March 12, 2014 7:50pm Many /lpf 1+ CLUE CELLS Urine Glucose (UA) March 12, 2014 7:50pm Negative NEGATIVE SOURCE : URINE, CLEAN CATCH Urine Ketones March 12, 2014 7:50pm Negative NEGATIVE SOURCE: URINE, CLEAN CATCH Urine Leukocyte Esterase March 12, 2014 7:50pm 1+ H NEGATIVE SOURCE : URINE, CLEAN CATCH Urine Mucus March 08, 2014 11:30pm None /lpf NONE SOURCE: URINE, CLEAN CATCH Urine Nitrate March 12, 2014 7:50pm Positive H NEGATIVE SOURCE: URINE, CLEAN CATCH Urine Occult Blood March 12, 2014 7:50pm 3+ H NEGATIVE SOURCE: URINE , CLEAN CATCH Urine Other March 08, 2014 11:30pm None SOURCE: URINE, CLEAN CATCH Urine Protein March 12, 2014 7:50pm Trace H NEGATIVE SOURCE: URINE, CLEAN CATCH Urine RBC March 12, 2014 7:50pm 50-75 /hpf H NONE SOURCE: URINE, CLEAN CATCH Urine Specific Bryant March 12, 2014 7:50pm 1.025 1.005-1.030 SOURCE: URINE, CLEAN CATCH Urine Urobilinogen March 12, 2014 7:50pm 0.2 E.U./dL 0.2-1.0 SOURCE: URINE, CLEAN CATCH Urine WBC March 12, 2014 7:50pm 5-10 /hpf H NONE THIS SPECIMEN MEETS MEDICAL STAFF CRITERIAFOR A URINE CULTURE. A CULTURE HAS BEEN SET. Urine WBC Clumps March 08, 2014 11:30pm None /hpf NONE SOURCE: URINE, CLEAN CATCH Urine pH March 12, 2014 7:50pm 7.0 4.5-8.0 SOURCE: URINE, CLEAN CATCH White Blood Count March 08, 2014 11:30pm 17.9 K/uL H 5.0-10.0 Urine Culture Urine,Clean Catch March 08, 2014 11:30pm >100,000 CFU/ML MIXED BODY GABBY AFTE... Procedures Procedure Status Date Provider(s) THER/PROPH/DIAG INJ IV PUSH completed 03/08/14 JANIE JESUS M.D. TX/PRO/DX INJ NEW DRUG ADDON completed 03/08/14 JANIE JESUS M.D. THER/PROPH/DIAG INJ IV PUSH completed 03/19/13 ANABEL SPICER M.D. TX/PRO/DX INJ NEW DRUG ADDON completed 03/19/13 ANABEL SPICER M.D. TX/PRO/DX INJ SAME DRUG MARKETING DEVELOPMENT SPECIALIST completed 03/19/13 ANABEL SPICER M.D. HYDRATE IV INFUSION ADD-ON completed 03/19/13 ANABEL SPICER M.D. KNEE ARTHROSCOPY/SURGERY completed 11/01/13 JOSHUA CARTWRIGHT M.D. Repair of knee cruciate ligaments (procedure) completed 11/01/13 JOSHUA CARTWRIGHT M.D. Encounters Encounter Location Date/Time Departed Emergency Room [facility] 03/12/14 7:27pm Departed Emergency Room [facility] 03/08/14 11:08pm Departed Emergency Room [facility] 03/19/13 10:08pm Recent Diagnosis
--- OUTSIDE RECORDS SUMMARY | 2016-06-19 18:38 | XMS REPORT | Continuity of Care Document ---
Author Author [facility] Organization [facility] Address Unknown Phone Unavailable Care Team Providers Care Locomotive Mechanic Name Role Phone GERONIMO DOYLE MD Primary Care Physician [phone] Insurance Providers Payer Name Policy Number Subscriber Name Relationship Medicare [id number] Jennifer Singh 20 Self [facility] [id number] Jennifer Singh 20 Self Advance Directives Directive Response Recorded Date/Time Advanced Directives Type None 02/18/14 7:45pm Problems Medical Problems Problem Onset Date Status Nephrolithiasis Unknown Active Renal colic Unknown Active Rectal bleeding Unknown Active Acute Crohn's disease Unknown Active Abdominal pain Unknown Active Crohn disease Unknown Active Crohn disease Unknown Active Medications Medication Dose Route Sig Days/Qty Instructions Order Date Discontinued Date Status Quetiapine Fumarate 600 BEDTIME 02/18/14 Active Fluoxetine HCl 10 Mg PO DAILY 02/18/14 Active Tizanidine HCl 8 Mg PO BEDTIME 02/18/14 Active Nebivolol HCl 20 Mg PO DAILY 02/18/14 Active Diltiazem HCl 240 Mg PO DAILY 02/18/14 Active Diltiazem HCl 240 Mg PO DAILY 02/18/14 Active Propranolol HCl 10 Mg PO TWICE A DAY Take 1 tablet, by mouth, 2 times a day. 02/18/14 Active Prednisone 10 Mg PO DAILY 30 Qty x 3 days 02/18/14 Active Omeprazole 20 Mg PO BEFORE BREAKFAST 30 Qty 02/18/14 Active Sucralfate 1 G PO BEFORE MEALS AND AT BEDTIME 40 Qty Take 1 tablet, by mouth, 4 times a day (Before EACH meal and 02/18/14 Active Promethazine HCl 1 Tab PO Every 8 Hours PRN NAUSEA 10 Qty 02/18/14 Active Social History Social History Problem Response Recorded Date/Time Chewing Tobacco Status No 03/09/2013 1:23am Hx Substance Use No 02/18/2014 7:45pm Tobacco Usage none 02/18/2014 7:57pm Query Response Start Date Stop Date Smoking Status Former smoker Hospital Discharge Instructions No hospital discharge instructions. Plan of Care No plan of care. Functional Status Query Response Date Recorded Physical Hygiene Self February 18, 2014 7:45pm Disabilities None February 18, 2014 7:45pm Devices Used None February 18, 2014 7:45pm Dressing Self February 18, 2014 7:45pm Ambulation Self February 18, 2014 7:45pm Diet Self February 18, 2014 7:45pm Mental Status Alert February 18, 2014 9:57pm Disabilities None February 18, 2014 7:45pm Devices Used None February 18, 2014 7:45pm Physical Hygiene Self February 18, 2014 7:45pm Dressing Self February 18, 2014 7:45pm Ambulation Self February 18, 2014 7:45pm Diet Self February 18, 2014 7:45pm Allergies, Adverse Reactions, Alerts Allergen Type Severity Reaction Status Last Updated dextromethorphan HBr Allergy Severe THROAT SWELLING, HIVES Active 02/18/14 pseudoephedrine HCl Allergy Severe THROAT SWELLING, HIVES Active 02/18/14 Haloperidol Allergy Unknown RASH Active 02/18/14 Codeine Allergy Severe Active 02/18/14 Doxylamine Allergy Severe THROAT SWELLING, HIVES Active 02/18/14 Ketorolac Allergy Unknown RASH Active 02/18/14 Duloxetine Allergy Unknown RASH Active 02/18/14 TAPE Allergy Unknown HIVES Active 09/23/09 Immunizations Name Given Type Hx Influenza Vaccination Y FALL 2013 Historical Hx Influenza Vaccination Y FALL 2013 Historical Vital Signs Acute Vital Signs Vital Response Date/Time Temperature (Fahrenheit) 98.6 deg F (96.8 - 99.1) Temperature (Calculated Celsius) 37.87312 degrees C (36.0 - 37.3) Pulse Rate (adult) 92 bpm (60 - 100) Respiratory Rate 16 breaths/min (10 - 20) O2 Sat by Pulse Oximetry 98 % (90 - 100) Blood Pressure 139/83 mm Hg Height 5 ft 11 in Weight 198 lb Body Mass Index 27.0 kg/m^2 Results Test Source Date Result Interp. Ref. Range Comments Alanine Aminotransferase (ALT/SGPT) February 18, 2014 8:18pm 146 U/L H 21 -72 Albumin February 18, 2014 8:18pm 4.4 G/DL N 3.5-5.0 Albumin/Globulin Ratio February 18, 2014 8:18pm 1.8 RATIO N 1.1-2.2 Alkaline Phosphatase February 18, 2014 8:18pm 89 U/L N 38-126 Amylase Level February 18, 2014 8:18pm 68 U/L N 30-110 Anion Gap February 18, 2014 8:18pm 10 MEQ/L N 5-15 Aspartate Amino Transf (AST/SGOT) February 18, 2014 8:18pm 129 U/L H 17- 59 BUN/Creatinine Ratio February 18, 2014 8:18pm 9 RATIO N 6-26 Basophils # (Auto) February 18, 2014 8:18pm 0.1 T/MM3 N 0-0.2 Basophils (%) (Auto) February 18, 2014 8:18pm 1.6 % N 0-2 Blood Urea Nitrogen February 18, 2014 8:18pm 8.0 MG/DL L 9-20 Calcium Level February 18, 2014 8:18pm 9.9 MG/DL N 8.4-10.2 Calculated Osmolality February 18, 2014 8:18pm 280 MOSM/KG N 261-280 Carbon Dioxide Level February 18, 2014 8:18pm 24 MEQ/L N 22-30 Chloride Level February 18, 2014 8:18pm 113 MEQ/L H 98-107 Creatinine February 18, 2014 8:18pm 0.9 MG/DL N 0.8-1.5 Eosinophils # (Auto) February 18, 2014 8:18pm 0.3 T/MM3 N 0-0.5 Eosinophils (%) (Auto) February 18, 2014 8:18pm 3.9 % N 0-4 Globulin February 18, 2014 8:18pm 2.4 G/DL N 2.4-3.6 Glucose Level February 18, 2014 8:18pm 95 MG/DL N 75-110 Hematocrit February 18, 2014 8:18pm 39.4 % L 41-53 Hemoglobin February 18, 2014 8:18pm 13.6 GM/DL N 13.5-17.5 Lipase February 18, 2014 8:18pm 169 U/L N 23-300 Lymphocytes # (Auto) February 18, 2014 8:18pm 2.4 T/MM3 N 1-4.8 Lymphocytes (%) (Auto) February 18, 2014 8:18pm 38.3 % N 23-45 Mean Corpuscular Hemoglobin February 18, 2014 8:18pm 30.4 UUG N 26-34 Mean Corpuscular Hemoglobin Concent February 18, 2014 8:18pm 34.5 GM/DL N 31-37 Mean Corpuscular Volume February 18, 2014 8:18pm 88.1 UM3 N 80-100 Mean Platelet Volume February 18, 2014 8:18pm 9.7 UM3 N 9.4-12.4 Monocytes # (Auto) February 18, 2014 8:18pm 0.4 T/MM3 N 0-0.8 Monocytes (%) (Auto) February 18, 2014 8:18pm 6.3 % N 0-9.0 Neutrophils # (Auto) February 18, 2014 8:18pm 3.2 T/MM3 N 1.8-7.7 Neutrophils (%) (Auto) February 18, 2014 8:18pm 49.7 % N 33-66 Platelet Count February 18, 2014 8:18pm 249 T/MM3 N 130-400 Potassium Level February 18, 2014 8:18pm 4.3 MEQ/L N 3.6-5 RDW Standard Deviation February 18, 2014 8:18pm 41.9 FL N 36.9-50.2 Red Blood Count February 18, 2014 8:18pm 4.47 M/MM3 L 4.50-5.90 Sodium Level February 18, 2014 8:18pm 147 MEQ/L H 134-144 Total Bilirubin February 18, 2014 8:18pm 0.30 MG/DL N 0.20-1.30 Total Protein February 18, 2014 8:18pm 6.8 G/DL N 6.3-8.2 Urine Bacteria March 09, 2013 1:50am None seen - Has specimen been collected/obtained? Y Urine Bilirubin February 18, 2014 8:30pm Negative - Has specimen been collected/obtained? Y Urine Blood February 18, 2014 8:30pm Negative - Has specimen been collected/obtained? Y Urine Collection Type February 18, 2014 8:30pm Cleancatch-midstream - Has specimen been collected/obtained? Y Urine Color February 18, 2014 8:30pm Yellow - Has specimen been collected/obtained? Y Urine Culture Indicated March 09, 2013 1:50am Cult reflexed &setup - Has specimen been collected/obtained? Y Urine Glucose (UA) February 18, 2014 8:30pm Negative - Has specimen been collected/obtained? Y Urine Ketones February 18, 2014 8:30pm Negative - Has specimen been collected/obtained? Y Urine Leukocyte Esterase February 18, 2014 8:30pm Negative - Has specimen been collected/obtained? Y Urine Nitrite February 18, 2014 8:30pm Negative - Has specimen been collected/obtained? Y Urine Protein February 18, 2014 8:30pm Negative - Has specimen been collected/obtained? Y Urine RBC March 09, 2013 1:50am Tntc /HPF - Has specimen been collected/obtained? Y Urine Specific Gilbert February 18, 2014 8:30pm 1.020 - Has specimen been collected/obtained? Y Urine Squamous Epithelial Cells March 09, 2013 1:50am 0-5 - Has specimen been collected/obtained? Y Urine Turbidity February 18, 2014 8:30pm Clear - Has specimen been collected/obtained? Y Urine Urobilinogen February 18, 2014 8:30pm 0.2 EU/DL - Has specimen been collected/obtained? Y Urine WBC March 09, 2013 1:50am None seen /HPF - Has specimen been collected/obtained? Y Urine pH February 18, 2014 8:30pm 7.0 - Has specimen been collected/ obtained? Y Valproic Acid (Depakene) Level September 23, 2009 3:00pm 23 UG/ML L 50-120 White Blood Count February 18, 2014 8:18pm 6.3 T/MM3 N 4.5-11.0 Chemistry Specimen Hemolysis February 18, 2014 8:18pm < 15 0-25 0-25: No Hemolysis.26-70: Slight [...] can falsely decrease Phenytoin. Recommend specimen recollection. Urinalysis Comment February 18, 2014 8:30pm Microscopic not ind. - Has specimen been collected/obtained? Y Lab Scanned Report September 26, 2009 9:28am REFERENCE LAB [id number] - Turbidity February 18, 2014 8:18pm < 20 0-20 Glomerular Filtration Rate Calc February 18, 2014 8:18pm 101 - Immature Granulocyte # (Auto) February 18, 2014 8:18pm 0.01 T/MM3 N 0.00- 0.03 Immature Granulocyte % (Auto) February 18, 2014 8:18pm 0.2 % N 0.0-0.5 Icterus Index February 18, 2014 8:18pm < 2 0-7 Urine Culture Urine, Clean Catch-Midstream March 09, 2013 2:07am Mixed Casandra Prob. Contaminants Procedures No known history of procedures. Encounters Encounter Location Date/Time Departed Emergency Room [facility] 02/18/14 6:33pm Recent Diagnosis
--- OUTSIDE RECORDS SUMMARY | 2016-06-19 18:38 | XMS REPORT | Referral Summary ---
Author Author [facility] Organization [facility] Address Unknown Phone Unavailable Care Team Providers Care Cabinet Finisher Name Role Phone No PCP, Pt States Primary Care Physician [phone] Encounter [facility] [id number] Date(s): 11/27/15 - 11/27/15 [facility] [address] [place], [place] [address] Discharge Diagnosis: Drug-seeking behavior Discharge Diagnosis: Gastroenteritis Discharge Diagnosis: Constipation Discharge Disposition: 01-Home or Self Care Attending Physician: Yared Addison MD Admitting Physician: Yared Addison MD Vital Signs Most recent to 1 oldest [Reference Range]: Temperature Oral 37.0 degC [35.8-37.3 degC] (11/27/15 8:05 PM) Peripheral Pulse 53 bpm Rate [60-100 bpm] *LOW* (11/27/15 11:12 PM) Heart Rate Monitored 80 bpm [60-100 bpm] (11/27/15 10:33 PM) Respiratory Rate 18 br/min [14-20 br/min] (11/27/15 11:12 PM) Blood Pressure 137/99 mmHg [90-140/60-90 mmHg] (11/27/15 11:12 PM) Mean Arterial 95 mmHg Pressure, Cuff (11/27/15 10:33 PM) SpO2 99 % (11/27/15 11:12 PM) Problem List Condition Effective Dates Status Health Status Informant Abdominal Resolved pain(Confirmed) Abdominal 08/30/13 Active pain(Confirmed) Abdominal Resolved pain(Confirmed) Abdominal pain of Active unknown etiology(Confirmed) Medication Active overdose(Confirmed) Acute Active pain(Confirmed) 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) Anxiety(Confirmed) Active patient [place] III: Active patient Asthma(Confirmed) At risk for Active injury(Confirmed)1 Benign Active hematuria(Confirmed) Benign Active hematuria(Confirmed) Bipolar(Confirmed) Active patient Bipolar disorder, Active most recent episode depressed(Confirmed) [place] I: Bipolar Active disease, by hx(Confirmed) [place] III: Crohn Active disease(Confirmed) Depression(Confirmed Active patient ) Abdominal pain, Active chronic, generalized(Confirme d) Hematuria(Confirmed) 08/30/13 Active Intractable nausea Active and vomiting(Confirmed) [place] III: Active patient Hypertension(Confirm ed) Ineffective coping Active (individual)(Confirm ed)2 [place] I: Active patient Insomnia(Confirmed) Kidney Active patient [...] Active Toradol3 Hives Mild Active Ultram Hive Active 1tachycardia 2hives 3HIVES Medications atenolol 50 [...] caps, 0 Refill(s), Indication: depression/ anxiety, Pharmacy: [facility] [place], 2 caps Oral Daily Start Date: 05/17/15 Status: Ordered gabapentin 300 mg, Oral, TID, 0 Refill(s) Start Date: 08/20/15 Status: Ordered Imitrex 100 mg, Oral, Daily, as needed for migraine headache, may repeat dose in 2 hours if needed, 0 Refill(s) Start Date: 05/14/15 Status: Ordered Levsin SL 0.125 mg sublingual tablet 0.125 mg 1 tabs, SubLingual, q4hr, Abdominal Cramping, # 30 tabs, 0 Refill(s) Start Date: 10/02/15 Status: Ordered methocarbamol 500 mg oral tablet 1,500 mg 3 tabs, Oral, TID, 0800, 1400 and 2000, 0 Refill(s), Indication: muscle relaxer Start Date: 05/14/15 Status: Ordered omeprazole 40 mg oral delayed release capsule 40 mg 1 caps, Oral, Daily, # 30 caps, 0 Refill(s) Start Date: 11/27/15 Status: Ordered ondansetron 4 mg oral tablet, disintegrating 4 mg 1 tabs, Oral, q8hr, Nausea, X 5 days, # 15 tabs, 0 Refill(s) Start Date: 11/25/15 Stop Date: 11/30/15 Status: Ordered ondansetron 4 mg oral tablet, disintegrating 4 mg 1 tabs, Oral, q6hr, as needed for nausea/vomiting, [id number], 0 Refill(s) Start Date: 05/14/15 Status: Ordered Pepcid 20 mg oral tablet 20 mg 1 tabs, Oral, BID, # 60 tabs, 0 Refill(s) Start Date: 09/25/15 Stop Date: 10/25/15 Status: Ordered prazosin 5 mg, Oral, Bedtime (once a day), 0 Refill(s), Indication: nightmares Start Date: 05/14/15 Status: Ordered PriLOSEC 20 mg oral delayed release capsule 20 mg 1 caps, Oral, Daily, # 30 caps, 0 Refill(s) Start Date: 11/25/15 Status: Ordered ProAir HFA 90 mcg/inh inhalation aerosol 2 puffs, Inhalation, q4hr, as needed for wheezing, 0 Refill(s) Start Date: 01/07/15 Status: Ordered QUEtiapine 200 mg oral tablet, extended release 200 mg 1 tabs, Oral, Bedtime (once a day), # 30 tabs, 0 Refill(s), Indication: mood stabil/sleep/anxiety, Pharmacy: [facility] Start Date: 05/17/15 Status: Ordered traZODone 200 mg, Oral, Bedtime (once a day), 0 Refill(s) Start Date: 08/20/15 Status: Ordered Viberzi 100 mg oral tablet 100 mg 1 tabs, Oral, BID, with food, 0 Refill(s) Start Date: 08/20/15 Status: Ordered Zofran 4 mg oral tablet 4 mg 1 tabs, Oral, q8hr, # 15 tabs, 0 Refill(s) Start Date: 11/27/15 Stop Date: 12/02/15 Status: Ordered Results Hematology Most recent to 1 oldest [Reference Range]: WBC [4.8-10.8 6.2 10*3/uL 10*3/uL] (11/27/15 9:22 PM) RBC [4.60-6.20] 4.80 (11/27/15 9:22 PM) Hgb [14.0-18.0 14.2 gm/dL gm/dL] (11/27/15 9:22 PM) Hct [42.0-52.0 %] 42.0 % (11/27/15 9:22 PM) MCV [82.0-99.0 fL] 87.5 fL (11/27/15 9:22 PM) MCH [27.0-32.0 pg] 29.6 pg (11/27/15 9:22 PM) MCHC [32.0-36.0 33.8 gm/dL gm/dL] (11/27/15 9:22 PM) RDW [11.5-14.5 %] 13.9 % (11/27/15 9:22 PM) Platelet [150-400 271 10*3/uL 10*3/uL] (11/27/15 9:22 PM) MPV [9.4-12.3 fL] 10.2 fL (11/27/15 9:22 PM) Immature 0.2 % Granulocytes (11/27/15 9:22 PM) [0.0-1.0 %] Neutrophils [51-75 48 % %] *LOW* (11/27/15 9:22 PM) Lymphocytes [20-46 39 % %] (11/27/15 9:22 PM) Monocytes [4-11 %] 10 % (11/27/15 9:22 PM) Eosinophils [0-4 %] 2 % (11/27/15 9:22 PM) Basophils [0-2 %] 1 % (11/27/15 9:22 PM) Neutro Absolute 2.95 10*3 [1.90-7.00 10*3] (11/27/15:22 PM) Lymph Absolute 2.42 10*3 [0.80-3.30 10*3] (11/27/15 9:22 PM) [place] Absolute 0.60 10*3 [0.30-1.00 10*3] (11/27/15:22 PM) Eos Absolute 0.15 10*3 [0.00-0.50 10*3] (11/27/15 9:22 PM) Baso Absolute 0.04 10*3 [0.00-0.20 10*3] (11/27/15:22 PM) Chemistry Most recent to 1 oldest [Reference Range]: Sodium Lvl [136-144 144 mEq/L mEq/L] (11/27/15: PM) Potassium Lvl 3.5 mEq/L [3.6-5.1 mEq/L] *LOW* (11/27/15: PM) Chloride [99-109 109 mEq/L mEq/L] (11/27/15:22 PM) CO2 [22-32 mEq/L] 27 mEq/L (11/27/15: PM) AGAP [3-20] 8 (11/27/15: PM) BUN [4-20 mg/dL] 6 mg/dL (11/27/15: PM) Glucose Lvl [70-100 94 mg/dL mg/dL] (11/27/15: PM) Creatinine Lvl 0.94 mg/dL [0.64-1.27 mg/dL] (11/27/15:22 PM) eGFR [>60] >60 1 (11/27/15: PM) Calcium Lvl 9.5 mg/dL [8.6-10.0 mg/dL] (11/27/15 PM) Albumin Lvl [3.5-4.8 4.3 gm/dL gm/dL] (11/27/15: PM) Total Protein 6.9 gm/dL [6.1-7.9 gm/dL] (11/27/15 9:22 PM) Globulin [1.9-4.3 2.6 gm/dL gm/dL] (11/27/15 9:22 PM) ALT [17-63 U/L] 25 U/L (11/27/15 9:22 PM) AST [15-41 U/L] 28 U/L (11/27/15 9:22 PM) Alk Phos [26-104 80 U/L U/L] (11/27/15 9:22 PM) Bili Total [0.2-1.2 0.5 mg/dL 2 mg/dL] (11/27/15 9:22 PM) 1Result Comment: Multiply eGFR results by 1.21 for race. 2Result Comment: Naproxen, specifically the metabolite O-desmethylnaproxen, may cause spurious elevation in Total Bilirubin levels. Urinalysis Most recent to 1 oldest [Reference Range]: UA Color Red *ABN* (11/27/15 9:22 PM) UA Appear Sl Cloudy (11/27/15 9:22 PM) UA pH [5.0-8.0] 6.0 (11/27/15 9:22 PM) UA Leuk Est Negative [Negative] (11/27/15 9:22 PM) UA Nitrite Negative [Negative] (11/27/15 9:22 PM) UA Protein Pos 1+ [Negative] *ABN* (11/27/15 9:22 PM) UA Glucose Negative [Negative] (11/27/15 9:22 PM) UA Ketones Negative [Negative] (11/27/15 9:22 PM) UA Urobilinogen Negative [<1.0] (11/27/15 9:22 PM) UA Bili [Negative] Negative (11/27/15 9:22 PM) UA Blood [Negative] Pos 3+ *ABN* (11/27/15 9:22 PM) UA Spec Grav 1.005 [1.003-1.030] (11/27/15 9:22 PM) Type Clean Catch (11/27/15 9:22 PM) UA WBC [0-4] 0-2 (11/27/15 9:22 PM) UA RBC [0-2] 20-50 *ABN* (11/27/15 9:22 PM) Epithelial Cells 5-10 (11/27/15 9:22 PM) UA Bacteria Occasional *ABN* (11/27/15 9:22 PM) Immunizations Vaccine Date Refusal Reason influenza virus vaccine, inactivated 01/09/15 influenza virus vaccine, live 03/16/13 tetanus-diphth toxoids (Td) adult/adol 09/09/13 tetanus-diphth toxoids (Td) adult/adol 07/02/02 Procedures Procedure Date Related Diagnosis Body Site [...]
--- OUTSIDE RECORDS SUMMARY | 2016-06-19 18:38 | XMS REPORT ---
Author Author [facility], [facility] - Organization Unknown Address Unknown Phone Unavailable [...] Medication reconciliation has not been performed. Results LAB--CHEMISTRY from 05/16/2012 11:26 PMAnion Gap 9 (3-20 ) Albumin 4.3 g/dL (3.5-4.8 g/dL) Alkaline Phosphatase 102 U/L (26-104 U/L) ALT (SGPT) 27 U/L (17-63 U/L) AST (SGOT) 31 U/L (15-41 U/L) Bilirubin Total 0.8 mg/dL (0.2-1.2 mg/dL) BUN 7 mg/dL (4-20 mg/dL) Calcium 9.6 mg/dL (8.6-10.0 mg/dL) Chloride 105 mEq/L (99-109 mEq/L) CO2 25 mEq/L (22-32 mEq/L) Creatinine 0.97 mg/dL (0.64-1.27 mg/dL) eGFR >60 (>60- ) Globulin 2.9 g/dL (1.9-4.3 g/dL) Glucose 98 mg/dL (70-100 mg/dL) Potassium 3.5 mEq/L L (3.6-5.1 mEq/L) Sodium 139 mEq/L (136-144 mEq/L) Protein 7.2 g/dL (6.1-7.9 g/dL) Lipase 29 U/L (8-48 U/L) LAB--HEMATOLOGY from 05/16/2012 11:26 PMAbsolute Basophils 0.04 THOUS (0.00-0.20 THOUS) Absolute Eosinophils 0.13 THOUS (0.00-0.50 THOUS) Absolute Lymphocytes 2.37 THOUS (0.80-3.30 THOUS) Absolute Monocytes 0.54 THOUS (0.30-1.00 THOUS) Absolute Neutrophils 5.38 THOUS (1.90-7.00 THOUS) HCT 47.5 % (42.0-52.0 %) HGB 16.5 g/dl (14.0-18.0 g/dl) MCH 29.8 pg (27.0-32.0 pg) MCHC 34.7 g/dL (32.0-36.0 g/dL) MCV 85.9 fL (82.0-99.0 fL) MPV 9.9 fL (9.4-12.3 fL) Platelet Count 394 K/uL (150-400 K/uL) RBC 5.53 M/uL (4.60-6.20 M/uL) RDW 13.4 % (11.5-14.5 %) WBC 8.5 K/uL (4.8-10.8 K/uL) Basophils 1 % (0-2 %) Eosinophils 2 % (0-4 %) Immature Granulocytes 0.2 % (0.0-1.0 %) Lymphocytes 28 % (20-46 %) Monocytes 6 % (4-11 %) Nucleated RBC Automated 0.0 /100 WBC (0 /100 WBC) Neutrophils 64 % (51-75 %) LAB--URINE TESTS from 05/16/2012 11:27 PMAppearance Clear Bilirubin Negative (Negative ) Blood Negative (Negative ) Color Dk Yellow Glucose Negative (Negative ) Ketones, Urine Trace A (Negative ) Leukocytes Esterase Negative (Negative ) Nitrites Negative (Negative ) pH, Urine 5.0 (5.0-8.0 ) Protein Negative (Negative ) Specific [place] 1.022 (1.003-1.030 ) Collection Type: Clean Catch Urobilinogen 1.0 mg/dL (-<1.0 mg/dL)
[2016-06-19] MEDS ORDERED: QUET200T83 PO (18:40)
[2016-06-19] MEDS ORDERED: SUVO15TA PO (18:40)
[2016-06-19] MEDS ORDERED: BUSP10TA3 PO (18:40)
--- OUTSIDE RECORDS SUMMARY | 2016-06-19 18:40 | XMS REPORT | Continuity of Care Document ---
Author Author [facility] Organization [facility] Address Unknown Phone Unavailable Care Team Providers Care Boom Storage Name Role Phone GERONIMO DOYLE MD Primary Care Physician [phone] Insurance Providers Payer Name Policy Number Subscriber Name Relationship Medicare [id number] Jennifer Singh 20 Self [facility] [id number] Jennifer Singh 20 Self Problems Medical Problems Problem Onset Date Status Nephrolithiasis Unknown Active Renal colic Unknown Active Rectal bleeding Unknown Active Acute Crohn's disease Unknown Active Abdominal pain Unknown Active Crohn disease Unknown Active Crohn disease Unknown Active Abdominal pain Unknown Active Hematuria Unknown Active Flank pain Unknown Active Abdominal pain Unknown Active Hematuria Unknown Active Medications Medication [...] Active Zonisamide 300 Mg BEDTIME 04/17/14 Active Social History Social History Problem Response Recorded Date/Time Chewing Tobacco Status No 03/09/2013 1:23am Hx Substance Use No 04/17/2014 5:15pm Hx Alcohol Use No 04/17/2014 5:15pm Tobacco Usage none 02/18/2014 7:57pm Query Response Start Date Stop Date Smoking Status Unknown if ever smoked Hospital Discharge Instructions No hospital discharge instructions. Plan of Care No plan of care. Functional Status Query Response Date Recorded Physical Hygiene Self April 17, 2014 5:15pm Disabilities Visual April 17, 2014 5:15pm Devices Used Glasses April 17, 2014 5:15pm Dressing Self April 17, 2014 5:15pm Ambulation Self April 17, 2014 5:15pm Diet Self April 17, 2014 5:15pm Mental Status Alert Oriented April 17, 2014 5:17pm Disabilities Visual April 17, 2014 5:15pm Devices Used Glasses April 17, 2014 5:15pm Physical Hygiene Self April 17, 2014 5:15pm Dressing Self April 17, 2014 5:15pm Ambulation Self April 17, 2014 5:15pm Diet Self April 17, 2014 5:15pm Allergies, Adverse Reactions, Alerts Allergen Type Severity Reaction Status Last Updated dextromethorphan HBr Allergy Severe THROAT SWELLING, HIVES Active 04/17/14 pseudoephedrine HCl Allergy Severe THROAT SWELLING, HIVES Active 04/17/14 Haloperidol Allergy Unknown RASH Active 04/17/14 Codeine Allergy Severe Active 04/17/14 Doxylamine Allergy Severe THROAT SWELLING, HIVES Active 04/17/14 Ketorolac Allergy Unknown RASH Active 04/17/14 Duloxetine Allergy Unknown RASH Active 04/17/14 PLASTIC TAPE Allergy Mild Active 02/21/14 Immunizations Name Given Type Hx Influenza Vaccination Y FALL 2013 Historical Hx Influenza Vaccination Y FALL 2013 Historical Vital Signs Acute Vital Signs Vital Response Date/Time Temperature (Fahrenheit) 98.2 deg F (96.8 - 99.1) Temperature (Calculated Celsius) 36.56981 degrees C (36.0 - 37.3) Pulse Rate (adult) 89 bpm (60 - 100) Respiratory Rate 16 breaths/min (10 - 20) O2 Sat by Pulse Oximetry 98 % (90 - 100) Blood Pressure 134/77 mm Hg Height 5 ft 11 in Weight 220 lb Body Mass Index 30.0 kg/m^2 Results Test Source Date Result Interp. Ref. Range Comments Alanine Aminotransferase (ALT/SGPT) April 17, 2014 3:13pm 59 U/L N 21- 72 Albumin April 17, 2014 3:13pm 4.3 G/DL N 3.5-5.0 Albumin/Globulin Ratio April 17, 2014 3:13pm 1.5 RATIO N 1.1-2.2 Alkaline Phosphatase April 17, 2014 3:13pm 85 U/L N 38-126 Amylase Level April 17, 2014 3:13pm 64 U/L N 30-110 Anion Gap April 17, 2014 3:13pm 14 MEQ/L N 5-15 Aspartate Amino Transf (AST/SGOT) April 17, 2014 3:13pm 39 U/L N 17-59 BUN/Creatinine Ratio April 17, 2014 3:13pm 21 RATIO N 6-26 Basophils # (Auto) April 17, 2014 3:13pm 0.0 T/MM3 N 0-0.2 Basophils (%) (Auto) April 17, 2014 3:13pm 0.5 % N 0-2 Blood Urea Nitrogen April 17, 2014 3:13pm 19.0 MG/DL N 9-20 Calcium Level April 17, 2014 3:13pm 10.0 MG/DL N 8.4-10.2 Calculated Osmolality April 17, 2014 3:13pm 283 MOSM/KG H 261-280 Carbon Dioxide Level April 17, 2014 3:13pm 23 MEQ/L N 22-30 Chemistry Specimen Hemolysis April 17, 2014 3:13pm < 15 0-25 0-25: No Hemolysis.26-70: Slight [...] Phenytoin. Recommend specimen recollection. Chloride Level April 17, 2014 3:13pm 109 MEQ/L H 98-107 Creatinine April 17, 2014 3:13pm 0.9 MG/DL N 0.8-1.5 Eosinophils # (Auto) April 17, 2014 3:13pm 0.1 T/MM3 N 0-0.5 Eosinophils # (Manual) February 22, 2014 12:30am 0.1 T/MM3 N 0-0.5 Eosinophils % (Manual) February 22, 2014 12:30am 1.0 % N 0-4 Eosinophils (%) (Auto) April 17, 2014 3:13pm 2.1 % N 0-4 Globulin April 17, 2014 3:13pm 2.9 G/DL N 2.4-3.6 Glomerular Filtration Rate Calc April 17, 2014 3:13pm 101 - Glucose Level April 17, 2014 3:13pm 104 MG/DL N 75-110 Hematocrit April 17, 2014 3:13pm 41.8 % N 41-53 Hemoglobin April 17, 2014 3:13pm 14.2 GM/DL N 13.5-17.5 Icterus Index April 17, 2014 3:13pm < 2 0-7 Immature Granulocyte # (Auto) April 17, 2014 3:13pm 0.00 T/MM3 N 0.00- 0.03 Immature Granulocyte % (Auto) April 17, 2014 3:13pm 0.0 % N 0.0-0.5 Lab Scanned Report September 26, 2009 9:28am REFERENCE LAB [id number] - Lipase April 17, 2014 3:13pm 132 U/L N 23-300 Lymphocytes # (Auto) April 17, 2014 3:13pm 2.2 T/MM3 N 1-4.8 Lymphocytes # (Manual) February 22, 2014 12:30am 3.8 T/MM3 N 1-4.8 Lymphocytes % (Manual) February 22, 2014 12:30am 37.0 % N 23-45 Lymphocytes (%) (Auto) April 17, 2014 3:13pm 37.5 % N 23-45 Mean Corpuscular Hemoglobin April 17, 2014 3:13pm 30.9 UUG N 26-34 Mean Corpuscular Hemoglobin Concent April 17, 2014 3:13pm 34.0 GM/DL N 31-37 Mean Corpuscular Volume April 17, 2014 3:13pm 91.1 UM3 N 80-100 Mean Platelet Volume April 17, 2014 3:13pm 9.3 UM3 L 9.4-12.4 Monocytes # (Auto) April 17, 2014 3:13pm 0.5 T/MM3 N 0-0.8 Monocytes # (Manual) February 22, 2014 12:30am 0.3 T/MM3 N 0-0.8 Monocytes % (Manual) February 22, 2014 12:30am 3.0 % N 0-9.0 Monocytes (%) (Auto) April 17, 2014 3:13pm 8.7 % N 0-9.0 Neutrophils # (Auto) April 17, 2014 3:13pm 3.0 T/MM3 N 1.8-7.7 Neutrophils # (Manual) February 22, 2014 12:30am 6.1 T/MM3 N 1.8-7.7 Neutrophils % (Manual) February 22, 2014 12:30am 59.0 % N 33-66 Neutrophils (%) (Auto) April 17, 2014 3:13pm 51.2 % N 33-66 Platelet Count April 17, 2014 3:13pm 287 T/MM3 N 130-400 Potassium Level April 17, 2014 3:13pm 4.0 MEQ/L N 3.6-5 RDW Standard Deviation April 17, 2014 3:13pm 45.1 FL N 36.9-50.2 Red Blood Count April 17, 2014 3:13pm 4.59 M/MM3 N 4.50-5.90 Sodium Level April 17, 2014 3:13pm 146 MEQ/L H 134-144 Total Bilirubin April 17, 2014 3:13pm 0.40 MG/DL N 0.20-1.30 Total Protein April 17, 2014 3:13pm 7.2 G/DL N 6.3-8.2 Turbidity April 17, 2014 3:13pm < 20 0-20 Urinalysis Comment February 18, 2014 8:30pm Microscopic not ind. - Has specimen been collected/obtained? Y Urine Bacteria April 17, 2014 1:50pm 2+ H - Has specimen been collected /obtained? Y Urine Bilirubin April 17, 2014 1:50pm Negative - Has specimen been collected/obtained? Y Urine Blood April 17, 2014 1:50pm 3+ H - Has specimen been collected/ obtained? Y Urine Collection Type April 17, 2014 1:50pm Cleancatch-midstream - Has specimen been collected/obtained? Y Urine Color April 17, 2014 1:50pm Yellow - Has specimen been collected/obtained? Y Urine Culture Indicated February 22, 2014 12:15am Cult reflexed &setup - Has specimen been collected/obtained? Y Urine Glucose (UA) April 17, 2014 1:50pm Negative - Has specimen been collected/obtained? Y Urine Ketones April 17, 2014 1:50pm Negative - Has specimen been collected/obtained? Y Urine Leukocyte Esterase April 17, 2014 1:50pm Trace H - Has specimen been collected/obtained? Y Urine Nitrite April 17, 2014 1:50pm Negative - Has specimen been collected/obtained? Y Urine Protein April 17, 2014 1:50pm Negative - Has specimen been collected/obtained? Y Urine RBC April 17, 2014 1:50pm 5-10 /HPF H - Has specimen been collected/obtained? Y Urine Specific [place] April 17, 2014 1:50pm 1.010 L - Has specimen been collected/obtained? Y Urine Squamous Epithelial Cells April 17, 2014 1:50pm 10-20 - Has specimen been collected/obtained? Y Urine Turbidity April 17, 2014 1:50pm Clear - Has specimen been collected/obtained? Y Urine Urobilinogen April 17, 2014 1:50pm 0.2 EU/DL - Has specimen been collected/obtained? Y Urine WBC April 17, 2014 1:50pm 3-5 /HPF - Has specimen been collected/obtained? Y Urine pH April 17, 2014 1:50pm 6.5 - Has specimen been collected/ obtained? Y Valproic Acid (Depakene) Level September 23, 2009 3:00pm 23 UG/ML L 50-120 White Blood Count April 17, 2014 3:13pm 5.8 T/MM3 N 4.5-11.0 Urine Culture Urine, Clean Catch-Midstream February 22, 2014 1:00am Mixed Casandra Prob. Contaminants Name: JENNIFER SINGH Unit #: [id number] : 1985 Sex: M Loc / Svc: ED DOS: 04/17/14 Signed Report #: [id number] DIAGNOSTIC IMAGING REPORT TYPE OF EXAM: CT [...] ADDON completed 02/18/14 TX/PRO/DX INJ SAME DRUG [employer]MOND PAN FINISHER completed 02/18/14 TX/PRO/DX INJ SAME DRUG [place]D PAN FINISHER completed 02/18/14 EMERGENCY DEPT VISIT completed 02/18/14 [id number]"INJECTION, PANTOPRAZOLE SODIUM, PER VIAL" completed 02/18/14"INJECTION, HYDROMORPHONE, [...] IODINE C completed Encounters Encounter Location Date/Time Departed Emergency Room [facility] 04/17/14 1:13pm Departed Emergency Room [facility] 02/21/14 10:18pm Departed Emergency Room [facility] 02/18/14 6:33pm Recent Diagnosis
--- OUTSIDE RECORDS SUMMARY | 2016-06-19 18:41 | XMS REPORT | Continuity of Care Document ---
Author Author Pham Mendo[facility] Pham Mendoza [facility] Address Unknown Phone Unavailable Support Name Relationship Address Phone JAUNPABLO AUGUSTE M.D. Caregiver [employer] [address] [place] [address] Unavailable MARCO ANTONIO DILLON Next Of Kin [address] [place], [place] [address] Insurance Providers Guarantor Jennifer Singh Address [address] [place] [address] Payer [facility] Plan Policy Number [id number] Subscriber's Name Jennifer Singh Relationship 01 Self / Same As Patient Payer [facility] Advantage Ppo/Hmo Policy Number [id number] Subscriber's Name Jennifer Singh Relationship 01 Self / Same As Patient Group Number [id number] Chief Complaint and Reason for Visit Chief Complaint Abdominal Pain Reason for Visit Hematuria Abdominal pain Problems Active Problems Medical Problem Onset Date Status Infection kidney Unknown Acute Pyelonephritis acute Unknown Acute Renal colic on left side Unknown Acute Right flank pain Unknown Acute Ureterolithiasis Unknown Acute Ureterolithiasis Unknown Acute Past Problems Medical Problem Onset Date Abdominal pain Unknown Abdominal pain Unknown Abdominal pain Unknown Dehydration [...] Mg Tab 50 Mg Oral Daily 08/17/15 Diltiazem Hcl (Cardizem Cd) 240 Mg Capcr 240 Mg Oral Bedtime for Hypertension 10/31/13 Ondansetron (Zofran Odt) 4 Mg Tab 4 Mg Oral Every 6 Hours as needed for Nausea 8 Tablet 05/08/16 Propranolol Hcl (Propranolol Hcl 10MG) 10 Mg Tab 10 Mg Oral Twice A Day for Migraine 10/31/13 Quetiapine Fumarate (Seroquel) 200 Mg Tab 200 Mg Oral Bedtime 10/24 Past Home Medications Medication Directions Ordered Status Ciprofloxacin Hcl (Cipro) 500 Mg Tab, 500 Mg Oral Twice A Day for Uti Discontinued Ciprofloxacin Hcl (Cipro) 500 Mg Tab, 500 Mg Oral Twice A Day for Bactinf 10/24 Discontinued Ciprofloxacin Hcl (Cipro) 500 Mg Tab, 500 Mg Oral Twice A Day 03/20/13 Discontinued Ciprofloxacin Hcl (Cipro) 500 Mg Tab, 500 Mg Oral Twice A Day 02/20/13 Discontinued Ondansetron (Zofran Odt) 4 Mg Tab, 4 Mg Oral Every 6 Hours as needed for Nausea 04/16/16 Discontinued Oxycodone/Acetaminophen (Percocet) 5/325 Tab, 1 Tab Oral Every 6 Hours as needed for Pain 04/16/16 Discontinued Sulfamethoxazole-Trimethoprim (Bactrim Ds) 1 Tab Tab, 1 Tab Oral Twice A Day for Bactinf 02/20/16 Discontinued Sulfamethoxazole-Trimethoprim (Bactrim Ds) 1 Tab Tab, 1 Tab Oral Twice A Day for Bactinf 04/16/16 Discontinued Social History Social History Problem Response Recorded Date/Time Onset Date Status Hx Substance Use No 10/31/2013 3:44pm Not Applicable Not Applicable Smoking Status Former smoker 05/07/2016 10:22pm Not Applicable Not Applicable Query Response Start Date Stop Date Smoking Status Former smoker Hospital Discharge Instructions No hospital discharge instructions. Plan of Care Discharge Date 05/08/16 1:56am Disposition 01 HOME, SELF-CARE Condition at Discharge Stable Instructions/Education Provided Abdominal Pain (ED) Prescriptions See Medication Section Additional Instructions/Education Follow up with a local doctor tomorrow to reassess your symptoms. Use Zofran as needed for nausea. Return to the ER if you develop a fever, have persistent vomiting despite meds or have worsening pain. Functional Status No functional status results. Allergies, Adverse Reactions, Alerts Allergen Type Severity Reaction Status Last Updated Codeine ([id number]) Allergy Intermediate Active 01/10/14 Dextromethorphan ([id number]) Adverse Reaction Mild KEEPS ME WIDE AWAKE Active 08/19/15 Diphenhydramine (W0794750781) Allergy Unknown Active 02/20/16 Doxylamine ([id number]) Adverse Reaction Mild KEEPS ME WIDE AWAKE Active 08/19/15 Haloperidol ([id number]) Adverse Reaction Intermediate Change in Vital Signs Active 04/16/16 Morphine ([id number]) Allergy Mild HIVES Active 12/25/15 Pseudoephedrine ([id number]) Adverse Reaction Mild KEEPS ME WIDE AWAKE Active 08/19/15 Ketorolac (W6478791255) Allergy Mild Active 01/10/14 Tramadol (M5754849756) Allergy Unknown HIVES PER PT 12/25/15 Active CI Pigment Blue 63 (V1395233319) Allergy Unknown HIVES Active 04/28/16 Duloxetine (F3581543301) Allergy Unknown hives Active 08/18/15 Ketorolac Tromethamine ([id number]) Allergy Unknown HIVES Active 04/16/16 PLASTIC TAPE Adverse Reaction Mild SKIN Active 03/08/14 Immunizations No immunization records. Vital Signs Acute Vital Signs Vital Response Date/Time Blood Pressure 128/84 mm Hg 05/08/2016 1:56am Blood Pressure Mean 103 mm Hg 11/01/2013 11:30am Blood Pressure Mean 99 mm Hg 05/08/2016 1:56am Temperature (Fahrenheit) 98.5 degrees F (96.0 - 99.9) 05/07/2016 10:19pm Temperature (Calculated Celsius) 36.13515 degrees C 05/07/2016 10:19pm Temperature Source Oral 11/01/2013 11:32am Temperature Source Oral 05/07/2016 10:19pm Temp 97.0 degrees F (96.0 - 99.9) 11/01/2013 11:39am Temperature (Calculated Celsius) 36.07988 degrees C 11/01/2013 11:39am Pulse Pulse Rate (adult) 100 bpm (60 - 100) 11/01/2013 12:00pm Pulse Rate (adult) 93 bpm (60 - 100) 11/01/2013 11:30am Pulse Rate: ED 110 bpm 05/08/2016 1:56am Respiratory Rate 20 breaths per minute (10 - 20) 05/08/2016 1:56am Respiratory Rate 14 bpm (10 - 20) 11/01/2013 11:30am Height (Feet) 6 ft 05/07/2016 10:19pm Height (Inches) 0 in. 05/07/2016 10:19pm Weight (Pounds) 227.0 lbs 05/07/2016 10:19pm Height 6 ft 0 in 05/07/2016 10:19pm Weight 227 lb 05/07/2016 10:19pm Body Mass Index 30.8 kg/m^2 05/07/2016 10:19pm Results Laboratory Results Test Name Result Units [...] Amorphous Sediment 3+ 12/25/2015 4:25pm 12/25/2015 5:24pm Lipase 41 U/L 8-57 04/27/2016 10:20pm 04/27/2016 [...] Screen NEGATIVE NEGATIVE 04/27/2016 10:06pm 2016 11:02pm White Blood Count 8.2 K/uL 5.0-10.0 05/07/2016 10:52pm 05/07/2016 11: 07pm Red Blood Count 5.10 M/uL 4.60-5.40 05/07/2016 10:52pm 05/07/2016 11: 07pm Hemoglobin 13.9 g/dL L 14.0-18.0 05/07/2016 10:52pm 05/07/2016 11:07pm Hematocrit 42.1 % 40.0-54.0 05/07/2016 10:52pm 05/07/2016 11:07pm Mean Corpuscular Volume 82.5 fL 80.0-94.0 05/07/2016 10:52pm 2016 11:07pm Mean Corpuscular Hemoglobin 27.3 pg 26.0-33.0 05/07/2016 10:52pm 2016 11:07pm Mean Corpuscular Hemoglobin Concent 33.0 g/dL 31.0-36.0 05/07/2016 10: 52pm 05/07/2016 11:07pm Red Cell Distribution Width 14.6 % H 11.5-14.5 05/07/2016 10:52pm 2016 11:07pm RDW Standard Deviation 42.2 fL 35.1-43.9 05/07/2016 10:52pm 05/07/2016 11:07pm Platelet Count 367 K/uL 130-400 05/07/2016 10:52pm 05/07/2016 11:07pm Mean Platelet Volume 9.7 fL 7.0-11.0 05/07/2016 10:52pm 05/07/2016 11: 07pm Neutrophils (%) (Auto) 52.4 % 42.0-75.0 05/07/2016 10:52pm 05/07/2016 11:07pm Lymphocytes (%) (Auto) 38.9 % 16.0-44.0 05/07/2016 10:52pm 05/07/2016 11:07pm Monocytes (%) (Auto) 7.0 % 2.0-9.0 05/07/2016 10:52pm 05/07/2016 11: 07pm Eosinophils (%) (Auto) 1.0 % 0-7.0 05/07/2016 10:52pm 05/07/2016 11: 07pm Basophils (%) (Auto) 0.5 % 0-1 05/07/2016 10:52pm 05/07/2016 11:07pm Immature Granulocyte % (Auto) 0.2 % 0-0.5 05/07/2016 10:52pm 2016 11:07pm Nucleated Red Blood Cells % 0.0 /100WBC 0-0 05/07/2016 10:52pm 2016 11:07pm Neutrophils # (Auto) 4.3 K/uL 1.9-8.0 05/07/2016 10:52pm 05/07/2016 11: 07pm Lymphocytes # (Auto) 3.2 K/uL 0.9-5.2 05/07/2016 10:52pm 05/07/2016 11: 07pm Monocytes # (Auto) 0.6 K/uL 0.16-1.0 05/07/2016 10:52pm 05/07/2016 11: 07pm Eosinophils # (Auto) 0.1 K/uL 0-0.8 05/07/2016 10:52pm 05/07/2016 11: 07pm Basophils # (Auto) 0.0 K/uL 0-0.2 05/07/2016 10:52pm 05/07/2016 11: 07pm Immature Granulocyte # (Auto) 0.02 K/uL 0-0.40 05/07/2016 10:52pm 05/07 11:07pm Nucleated Red Blood Cells # 0.00 K/uL 0.0-0.012 05/07/2016 10:52pm 11:07pm Urine Color RED 05/07/2016 10:52pm 05/07/2016 11:07pm Urine Appearance CLOUDY 05/07/2016 10:52pm 05/07/2016 11:07pm Urine Glucose (UA) NEGATIVE NEGATIVE 05/07/2016 10:52pm 05/07/2016 11 :07pm Urine Bilirubin NEGATIVE NEGATIVE 05/07/2016 10:52pm 05/07/2016 11: 07pm Urine Ketones NEGATIVE NEGATIVE 05/07/2016 10:52pm 05/07/2016 11: 07pm Urine Specific [place] 1.015 1.005-1.030 05/07/2016 10:52pm 2016 11:07pm Urine Occult Blood 3+ H NEGATIVE 05/07/2016 10:52pm 05/07/2016 11: 07pm Urine pH 8.5 4.5-8.0 05/07/2016 10:52pm 05/07/2016 11:07pm Urine Protein 2+ H NEGATIVE 05/07/2016 10:52pm 05/07/2016 11:07pm Urine Urobilinogen 1.0 E.U./dL 0.2-1.0 05/07/2016 10:52pm 05/07/2016 11 :07pm Urine Nitrate NEGATIVE NEGATIVE 05/07/2016 10:52pm 05/07/2016 11: 07pm Urine Leukocyte Esterase TRACE H NEGATIVE 05/07/2016 10:52pm 2016 11:07pm Urine RBC >100 /hpf H NONE 05/07/2016 10:52pm 05/07/2016 11:15pm Urine WBC 1-3 /hpf NONE 05/07/2016 10:52pm 05/07/2016 11:15pm Urine Epithelial Cells 3-5 /lpf 05/07/2016 10:52pm 05/07/2016 11: 15pm Urine Bacteria 2+ /hpf H NONE 05/07/2016 10:52pm 05/07/2016 11:15pm THIS SPECIMEN MEETS MEDICAL STAFF CRITERIA FOR A URINE CULTURE. A CULTURE HAS BEEN SET. Urine Mucus 1+ /lpf NONE 05/07/2016 10:52pm 05/07/2016 11:15pm Random Glucose 88 mg/dL 65-115 05/07/2016 10:52pm 05/07/2016 11:58pm Blood Urea Nitrogen 6 mg/dL L 8-25 05/07/2016 10:52pm 05/07/2016 11: 58pm Creatinine 0.89 mg/dL L 0.9-1.6 05/07/2016 10:52pm 05/07/2016 11:58pm Glomerular Filtration Rate Calc 101.06 mL/min 05/07/2016 10: 11:58pm MULTIPLY RESULT BY 1.210 IF THE PATIENT IS -[place] Units are mL/min/1.73 m2 > 60 Normal kidney function 30-59 Moderately decreased kidney function 15-29 Severely decreased kidney function <15 End-stage kidney failure BUN/Creatinine Ratio 6.7 05/07/2016 10:52pm 05/07/2016 11:58pm Sodium Level 140 mEq/L 133-145 05/07/2016 10:52pm 05/07/2016 11:58pm Potassium Level 3.5 mEq/L 3.5-5.1 05/07/2016 10:pm 05/07/2016 11: 58pm Chloride Level 104 mEq/L 98-116 05/07/2016 10:52pm 05/07/2016 11:58pm Carbon Dioxide Level 29 mEq/L 22-34 05/07/2016 10:52pm 05/07/2016 11: 58pm Anion Gap 10.5 6-13 05/07/2016 10:52pm 05/07/2016 11:58pm Calcium Level 9.5 mg/dL 8.2-10.6 05/07/2016 10:52pm 05/07/2016 11:58pm Total Protein 7.8 gm/dL 6.0-8.4 05/07/2016 10:52pm 05/07/2016 11:58pm Albumin 4.7 gm/dL 3.2-5.0 05/07/2016 10:pm 05/07/2016 11:58pm Globulin 3.1 gm/dL H 2.0-3.0 05/07/2016 10:05/07/2016 11:58pm Albumin/Globulin Ratio 1.5 1.4-2.4 05/07/2016 10:pm 05/07/2016 11: 58pm Total Bilirubin 0.6 mg/dL 0.1-1.3 05/07/2016 10:52pm 05/07/2016 11: 58pm Alkaline Phosphatase 92 U/L 35-125 05/07/2016 10:05/07/2016 11: 58pm Aspartate Amino Transf (AST/SGOT) 29 U/L 5-40 05/07/2016 10:52pm 2016 11:58pm Alanine Aminotransferase (ALT/SGPT) 22 U/L 5-40 05/07/2016 10:52pm 11:58pm Bedside Glucose 113 mg/dL 70-120 11/01/2013 7:26am [...] TX/PRO/DX INJ NEW DRUG ADDON Completed 09/28/15 JERALD,FROILAN Singh M.D. TX/PRO/DX INJ NEW DRUG ADDON Completed 09/28/15 FROILAN MARQUES M.D. HYDRATE IV INFUSION ADD-ON Completed 09/28/15 FROILAN MARQUES M.D. THER/PROPH/DIAG INJ IV PUSH Completed 10/05/15 GIUSEPPE,TREMAYNE Quintanilla D.O. HYDRATE IV INFUSION ADD-ON Completed 10/05/15 BUZZT,TREMAYNE Quintanilla D.O. HYDRATE IV INFUSION ADD-ON Completed 10/05/15 GIUSEPPE,TREMAYNE Quintanilla D.O. THER/PROPH/DIAG INJ IV PUSH Completed 12/25/15 JUANPABLO AUGUSTE M.D. TX/PRO/DX INJ NEW DRUG ADDON Completed 12/25/15 AUGUSTE,JUANPABLO M.D. HYDRATE IV INFUSION ADD-ON Completed 12/25/15 JUANPABLO AUGUSTE M.D. THER/PROPH/DIAG INJ SC/IM Completed 12/25/15 JUANPABLO AUGUSTE M.D. THER/PROPH/DIAG INJ IV PUSH Completed 12/30/15 JUANPABLO AUGUSTE M.D. TX/PRO/DX INJ NEW DRUG ADDON Completed 12/30/15 JUANPABLO AUGUSTE M.D. TX/PRO/DX INJ SAME DRUG ALTERATIONS EXPERT Completed 12/30/15 JUANPABLO AUGUSTE M.D. HYDRATE IV [...] Discharge/Depart Date Attending Provider Departed Emergency Room [facility] 05/07/16 10:17pm 1:56am JUANPABLO AUGUSTE M.D. Departed Emergency Room [facility] 04/27/16 9:58pm 11:58pm YOSEPH BAUTISTA M.D. Departed Emergency Room [facility] 04/16/16 12:41am 2:28am JUANPABLO AUGUSTE M.D. Departed Emergency Room [facility] 02/20/16 7:38pm 9:25pm FROILAN MARQUES M.D. Departed Emergency Room [facility] 12/30/15 9:03pm 11:30pm JUANPABLO AUGUSTE M.D. Departed Emergency Room [facility] 12/25/15 4:13pm 6:02pm JUANPABLO AUGUSTE M.D. Departed Emergency Room [facility] 10/05/15 4:37pm 6:42pm TREMAYNE CHIN D.O. Departed Emergency Room [facility] 09/28/15 5:43pm 11:02pm FROILAN MARQUES M.D. Departed Emergency Room [facility] 08/17/15 2:20pm 4:45pm TREMAYNE CHIN D.O. Departed Emergency Room [facility] 03/10/15 8:26pm 10:08pm CARLOS ORTA M.D. Departed Emergency Room [facility] 09/25/14 6:47pm 9:00pm CARLOS ORTA M.D. Departed Emergency Room [facility] 03/12/14 7:27pm 8:59pm CARLOS ORTA M.D. Departed Emergency Room [facility] 03/08/14 11:08pm 1:03am JANIE JESUS M.D. Departed Surgical Day Care [facility] 11/01/13 7:10am 12:12pm JOSHUA CARTWRIGHT M.D. Recent Diagnosis
--- OUTSIDE RECORDS SUMMARY | 2016-06-19 18:42 | XMS REPORT ---
Author Author [place], [facility] - Organization Unknown Address Unknown Phone [...] has not been performed. Results LAB--CHEMISTRY from 08/24/2012 3:38 PMAnion Gap 9 (3-20 ) Albumin 4.4 g/dL (3.5-4.8 g/dL) Alkaline Phosphatase 104 U/L (26-104 U/L) ALT (SGPT) 44 U/L (17-63 U/L) AST (SGOT) 37 U/L (15-41 U/L) Bilirubin Total 0.8 mg/dL (0.2-1.2 mg/dL) BUN 3 mg/dL L (4-20 mg/dL) Calcium 10.0 mg/dL (8.6-10.0 mg/dL) Chloride 106 mEq/L (99-109 mEq/L) CO2 27 mEq/L (22-32 mEq/L) Creatinine 1.25 mg/dL (0.64-1.27 mg/dL) eGFR >60 (>60- ) Globulin 3.0 g/dL (1.9-4.3 g/dL) Glucose 111 mg/dL H (70-100 mg/dL) Potassium 3.8 mEq/L (3.6-5.1 mEq/L) Sodium 142 mEq/L (136-144 mEq/L) Protein 7.4 g/dL (6.1-7.9 g/dL) Lipase 29 U/L (8-48 U/L) LAB--HEMATOLOGY from 08/24/2012 3:38 PMAbsolute Basophils 0.06 THOUS (0.00-0.20 THOUS) Absolute Eosinophils 0.15 THOUS (0.00-0.50 THOUS) Absolute Lymphocytes 2.56 THOUS (0.80-3.30 THOUS) Absolute Monocytes 0.54 THOUS (0.30-1.00 THOUS) Absolute Neutrophils 3.12 THOUS (1.90-7.00 THOUS) HCT 46.9 % (42.0-52.0 %) HGB 16.6 g/dl (14.0-18.0 g/dl) MCH 29.1 pg (27.0-32.0 pg) MCHC 35.4 g/dL (32.0-36.0 g/dL) MCV 82.1 fL (82.0-99.0 fL) MPV 9.6 fL (9.4-12.3 fL) Platelet Count 395 K/uL (150-400 K/uL) RBC 5.71 M/uL (4.60-6.20 M/uL) RDW 13.3 % (11.5-14.5 %) WBC 6.4 K/uL (4.8-10.8 K/uL) Basophils 1 % (0-2 %) Eosinophils 2 % (0-4 %) Immature Granulocytes 0.0 % (0.0-1.0 %) Lymphocytes 40 % (20-46 %) Monocytes 8 % (4-11 %) Neutrophils 49 % L (51-75 %) LAB--URINE TESTS from 08/24/2012 3:45 PMAppearance Clear Bilirubin Negative (Negative ) Blood Trace A (Negative ) Color Yellow Glucose Negative (Negative ) Ketones, Urine Negative (Negative ) Leukocytes Esterase Negative (Negative ) Nitrites Negative (Negative ) pH, Urine 8.0 (5.0-8.0 ) Protein Negative (Negative ) Specific [place] 1.012 (1.003-1.030 ) Collection Type: Clean Catch Urobilinogen 1.0 mg/dL (-<1.0 mg/dL) RBC 0-2 /HPF (0-2 /HPF)
--- OUTSIDE RECORDS SUMMARY | 2016-06-19 18:43 | XMS REPORT | CCD ---
Author Author [place] - Organization Unknown Address Unknown Phone Unavailable [...] not been performed. Results LAB--BEDSIDE TESTING from 11/19/2012 8:57 PMAnion Gap NPT 15 (3-20 ) BUN Venous NPT 6 mg/dl (4-20 mg/dl) Calcium Ionized Venous 1.24 mmol/L (1.19-1.41 mmol/L) Venous CL NPT 105 mEq/L (99-109 mEq/L) Creatinine Venous NPT 1.2 mg/dL (0.7-1.2 mg/dL) Glucose Venous 102 mg/dL H (70-100 mg/dL) HCT Venous NPT 46.0 % (42.0-52.0 %) HGB Venous NPT 15.6 g/dL (14.0-18.0 g/dL) Potassium Venous 3.5 mEq/L L (3.6-5.1 mEq/L) Sodium Venous 143 mEq/L (136-144 mEq/L) Total CO2 Venous 23 mEq/L L (25-29 mEq/L) LAB--URINE TESTS from 11/19/2012 8:38 PMAppearance Clear Bilirubin Negative (Negative ) Blood Trace A (Negative ) Color Yellow Glucose Negative (Negative ) Ketones, Urine Negative (Negative ) Leukocytes Esterase Pos 1+ A (Negative ) Nitrites Negative (Negative ) pH, Urine 7.0 (5.0-8.0 ) Protein Negative (Negative ) Specific [place] 1.008 (1.003-1.030 ) Collection Type: Clean Catch Urobilinogen 1.0 mg/dL (-<1.0 mg/dL) Bacteria Rare Epithelial Cells 2-5 /HPF Mucus Present RBC 0-2 /HPF (0-2 /HPF) WBC 2-5 /HPF (0-4 /HPF)
--- OUTSIDE RECORDS SUMMARY | 2016-06-19 18:43 | XMS REPORT | Referral Summary ---
Author Author [facility] Organization [facility] Address Unknown Phone Unavailable Care Team Providers Care Piece Cutter Name Role Phone No PCP, Pt States Primary Care Physician [phone] Encounter VC Date(s): 03/30/16 - 03/30/[address] [facility] [address] [place] [address] [phone] Discharge Diagnosis: Microscopic hematuria Discharge Diagnosis: Flank pain Discharge Disposition: 01-Home or Self Care Attending Physician: Nicolás Hensley JR, MD Admitting Physician: Nicolás Hensley JR, MD Vital Signs Most recent to 1 oldest [Reference Range]: Temperature Oral 36.9 degC [35.8-37.3 degC] (03/30/16 7:42 PM) Peripheral Pulse 121 bpm Rate [60-100 bpm] *HI* (03/30/16 7:42 PM) Respiratory Rate 18 br/min [14-20 br/min] (03/30/16 7:42 PM) Blood Pressure 135/94 mmHg [90-140/60-90 mmHg] (03/30/16 7:42 PM) SpO2 96 % (03/30/16 7:42 PM) Problem List Condition Effective Dates Status Health Status Informant H/O: Active patient depression(Confirmed ) History of high Active patient blood pressure(Confirmed) H/O Crohn's Active patient disease(Confirmed) Kidney Active patient stone(Confirmed) Allergies, Adverse Reactions, Alerts Substance Reaction Severity Status Cymbalta Medium Active Haldol Medium Active Nyquil Cold & Flu Medium Active Tape Active Toradol Medium Active Ultram Medium Active Medications Ambien Oral, Bedtime (once a day), 0 Refill(s) Start Date: 03/30/16 Status: Ordered Percocet 5/325 oral tablet 2 tabs, Oral, q6hr, as needed for pain, # 10 tabs, 0 Refill(s) Start Date: 03/30/16 Stop Date: 04/03/16 Status: Ordered SEROquel Oral, 0 Refill(s) Start Date: 03/30/16 Status: Ordered Results Urinalysis Most recent to 1 oldest [Reference Range]: UA Color Lt Yellow (03/30/16 7:44 PM) UA Appear Sl Cloudy (03/30/16 7:44 PM) UA pH [5.0-8.0] 7.0 (03/30/16 7:44 PM) UA Leuk Est Pos 1+ [Negative] *ABN* (03/30/16 7:44 PM) UA Nitrite Negative [Negative] (03/30/16 7:44 PM) UA Protein Trace [Negative] *ABN* (03/30/16 7:44 PM) UA Glucose Negative [Negative] (03/30/16 7:44 PM) UA Ketones Trace [Negative] *ABN* (03/30/16 7:44 PM) UA Urobilinogen 4.0 mg/dL [<1.0 mg/dL] *ABN* (03/30/16 7:44 PM) UA Bili [Negative] Negative (03/30/16 7:44 PM) UA Blood [Negative] Pos 3+ *ABN* (03/30/16 7:44 PM) UA Spec Grav 1.021 [1.003-1.030] (03/30/16 7:44 PM) Type Clean Catch (03/30/16 7:44 PM) UA WBC [0-4] 2-5 (03/30/16 7:44 PM) UA RBC [0-2 /HPF] >50 /HPF *ABN* (03/30/16 7:44 PM) Epithelial Cells 5-10 (03/30/16 7:44 PM) UA Bacteria Occasional *ABN* (03/30/16 7:44 PM) Crystals Amorphous (03/30/16 7:44 PM) UA Mucous Present (03/30/16 7:44 PM) Immunizations No data available for this section Procedures No data available for this section Social History Social History Type Response Smoking Status Never smoker Assessment and Plan No data available for this section
[2016-06-19 18:44] LABS: BACTERIA,URINE 1+ (NEGATIVE); RBC,URINE 50-200 /HPF (0-3)
--- OUTSIDE RECORDS SUMMARY | 2016-06-19 18:44 | XMS REPORT | Continuity of Care Document ---
Author Author [facility] Organization [facility] Address Unknown Phone Unavailable Care Team Providers Care Stapler Hand Name Role Phone GERONIMO DOYLE M.D. Primary Care Physician [phone] Insurance Providers Payer Name Policy Number Subscriber Name Relationship s Medicare [id number] Jennifer Singh Self / Same As Patient [facility] [id number] Jennifer Singh Self / Same As Patient Chief Complaint and Reason for Visit Chief Complaint Flank Pain Reason for Visit [id number] Problems Medical Problems Problem Onset Date Status Infection kidney Unknown Active Pyelonephritis acute Unknown Active Ureterolithiasis Unknown Active Ureterolithiasis Unknown Active Medications Medication Dose Route Sig [...] No 10/31/2013 3:44pm Smoking Status Former smoker 03/08/2014 11:14pm Query Response Start Date Stop Date Smoking Status Former smoker Hospital Discharge Instructions No hospital discharge instructions. Plan of Care Discharge Date 03/09/14 1:03am Disposition 01 HOME, SELF-CARE Condition at Discharge Improved/Stable Instructions/Education Provided Nephrolithiasis (ED) Prescriptions See Medications Section Referrals GERONIMO DOYLE M.D., GEORGE F. M.D. Additional Instructions/Education Follow up with a urologist. Functional Status No functional status results. Allergies, [...] Vital Signs Vital Response Date/Time Blood Pressure 136/85 mm Hg Blood Pressure Mean 103 mm Hg Blood Pressure Mean 102 mm Hg Temperature (Fahrenheit) 98.4 degrees F (96.0 - 99.9) Temperature (Calculated Celsius) 36.32896 degrees C Temperature Source Oral Temperature Source Oral Temp 97.0 degrees F (96.0 - 99.9) Temperature (Calculated Celsius) 36.21650 degrees C Pulse Pulse Rate (adult) 100 bpm (60 - 100) Pulse Rate (adult) 93 bpm (60 - 100) Pulse Rate: ED 113 bpm Respiratory Rate 16 breaths per minute (10 - 20) Respiratory Rate 14 bpm (10 - 20) Height (Feet) 5 ft Height (Inches) 11 in. Weight (Pounds) 217 lbs Results Test Source Date Result Interp. [...] URINE , CLEAN CATCH Urine Appearance March 08, 2014 11:30pm Cloudy SOURCE: URINE, CLEAN CATCH Urine Bacteria March 08, 2014 11:30pm 2+ /hpf H NONE THIS SPECIMEN MEETS MEDICAL STAFF CRITERIAFOR A URINE CULTURE. A CULTURE HAS BEEN SET. Urine Bilirubin March 08, 2014 11:30pm Negative NEGATIVE SOURCE: URINE, CLEAN CATCH Urine Casts March 08, 2014 11:30pm None /lpf NONE SOURCE: URINE, CLEAN CATCH Urine Color March 08, 2014 11:30pm Dk yellow SOURCE: URINE, CLEAN CATCH Urine Crystals March 08, 2014 11:30pm None /hpf NONE SOURCE: URINE , CLEAN CATCH Urine Epithelial Cells March 08, 2014 11:30pm Moderate /lpf SOURCE: URINE, CLEAN CATCH Urine Glucose (UA) March 08, 2014 11:30pm Negative NEGATIVE SOURCE : URINE, CLEAN CATCH Urine Ketones March 08, 2014 11:30pm Negative NEGATIVE SOURCE: URINE, CLEAN CATCH Urine Leukocyte Esterase March 08, 2014 11:30pm Negative NEGATIVE SOURCE: URINE, CLEAN CATCH Urine Mucus March 08, 2014 11:30pm None /lpf NONE SOURCE: URINE, CLEAN CATCH Urine Nitrate March 08, 2014 11:30pm Negative NEGATIVE SOURCE: URINE, CLEAN CATCH Urine Occult Blood March 08, 2014 11:30pm 3+ H NEGATIVE SOURCE: URINE , CLEAN CATCH Urine Other March 08, 2014 11:30pm None SOURCE: URINE, CLEAN CATCH Urine Protein March 08, 2014 11:30pm Negative NEGATIVE SOURCE: URINE, CLEAN CATCH Urine RBC March 08, 2014 11:30pm 25-50 /hpf H NONE SOURCE: URINE, CLEAN CATCH Urine Specific [place] March 08, 2014 11:30pm 1.015 1.005-1.030 SOURCE: URINE, CLEAN CATCH Urine Urobilinogen March 08, 2014 11:30pm 0.2 E.U./dL 0.2-1.0 SOURCE: URINE, CLEAN CATCH Urine WBC March 08, 2014 11:30pm 1-3 /hpf NONE SOURCE: URINE, CLEAN CATCH Urine WBC Clumps March 08, 2014 11:30pm None /hpf NONE SOURCE: URINE, CLEAN CATCH Urine pH March 08, 2014 11:30pm 8.0 4.5-8.0 SOURCE: URINE, CLEAN CATCH White Blood Count March 08, 2014 11:30pm 17.9 K/uL H 5.0-10.0 Procedures Procedure Status Date Provider(s) THER/PROPH/DIAG INJ IV PUSH completed 03/19/13 ANABEL SPICER M.D. TX/PRO/DX INJ NEW DRUG ADDON completed 03/19/13 ANABEL SPICER M.D. TX/PRO/DX INJ SAME DRUG TRAFFIC ATTENDANT completed 03/19/13 ANABEL SPICER M.D. HYDRATE IV INFUSION ADD-ON completed 03/19/13 ANABEL SPICER M.D. KNEE ARTHROSCOPY/SURGERY completed 11/01/13 JOSHUA CARTWRIGHT M.D. Repair of knee cruciate ligaments (procedure) completed 11/01/13 JOSHUA CARTWRIGHT M.D. Encounters Encounter Location Date/Time Departed Emergency Room [facility] 03/08/14 11:08pm Departed Emergency Room [facility] 03/19/13 10:08pm Recent Diagnosis
[2016-06-19 18:45] LABS: MUCUS,URINE PRESENT
--- OUTSIDE RECORDS SUMMARY | 2016-06-19 18:45 | XMS REPORT | Continuity of Care Document ---
Author Author [facility] Organization [facility] Address Unknown Phone Unavailable Care Team Providers Care Secretary Administrative Assistant Name Role Phone GERONIMO DOYLE MD Primary Care Physician [phone] Insurance Providers Payer Name Policy Number Subscriber Name Relationship Medicare [id number] Jennifer Singh 20 Self [facility] [id number] Jennifer Singh 18 Self Advance Directives Directive Response Recorded Date/Time Advanced Directives Type None 02/21/14 11:15pm Problems Medical Problems Problem Onset Date Status Nephrolithiasis Unknown Active Renal colic Unknown Active Rectal bleeding Unknown Active Acute Crohn's disease Unknown Active Abdominal pain Unknown Active Crohn disease Unknown Active Crohn disease Unknown Active Medications Medication Dose Route Sig Days/Qty Instructions Order Date Discontinued Date Status Fluoxetine HCl 10 Mg PO DAILY 02/18/14 Active Nebivolol HCl 20 Mg PO DAILY 02/18/14 Active Diltiazem HCl 240 Mg PO DAILY 02/18/14 Active Prednisone 10 Mg PO DAILY 30 Qty 4 daily x 3 days, 3 daily x3 days, 2 daily x 3 days, 1 daily 02/18/14 Active Omeprazole 20 Mg PO BEFORE BREAKFAST 30 Qty 02/18/14 Active Promethazine HCl 1 Tab PO Every 8 Hours PRN NAUSEA 10 Qty 02/18/14 Active Acetaminophen Unknown Dose PO 02/21/14 Active Ibuprofen Unknown Dose PO Q4H PRN 02/21/14 Active Social History Social History Problem Response Recorded Date/Time Chewing Tobacco Status No 03/09/2013 1:23am Hx Substance Use No 02/21/2014 11:33pm Hx Alcohol Use No 02/21/2014 11:33pm Tobacco Usage none 02/18/2014 7:57pm Query Response Start Date Stop Date Smoking Status Never smoker Hospital Discharge Instructions No hospital discharge instructions. Plan of Care No plan of care. Functional Status Query Response Date Recorded Physical Hygiene Self February 21, 2014 11:33pm Disabilities Visual February 21, 2014 11:33pm Devices Used Glasses February 21, 2014 11:33pm Dressing Self February 21, 2014 11:33pm Ambulation Self February 21, 2014 11:33pm Diet Self February 21, 2014 11:33pm Mental Status Alert Oriented February 21, 2014 11:33pm Disabilities Visual February 21, 2014 11:33pm Devices Used Glasses February 21, 2014 11:33pm Physical Hygiene Self February 21, 2014 11:33pm Dressing Self February 21, 2014 11:33pm Ambulation Self February 21, 2014 11:33pm Diet Self February 21, 2014 11:33pm Allergies, Adverse Reactions, Alerts Allergen Type Severity Reaction Status Last Updated dextromethorphan HBr Allergy Severe THROAT SWELLING, HIVES Active 02/21/14 pseudoephedrine HCl Allergy Severe THROAT SWELLING, HIVES Active 02/21/14 Haloperidol Allergy Unknown RASH Active 02/18/14 Morphine Allergy Unknown Active 02/21/14 Codeine Allergy Severe Active 02/21/14 Doxylamine Allergy Severe THROAT SWELLING, HIVES Active 02/21/14 Ketorolac Allergy Unknown RASH Active 02/18/14 Duloxetine Allergy Unknown RASH Active 02/18/14 PLASTIC TAPE Allergy Mild Active 02/21/14 Immunizations Name Given Type Hx Influenza Vaccination Y FALL 2013 Historical Hx Influenza Vaccination Y FALL 2013 Historical Vital Signs Acute Vital Signs Vital Response Date/Time Temperature (Fahrenheit) 98.4 deg F (96.8 - 99.1) Temperature (Calculated Celsius) 36.55069 degrees C (36.0 - 37.3) Pulse Rate (adult) 86 bpm (60 - 100) Respiratory Rate 18 breaths/min (10 - 20) O2 Sat by Pulse Oximetry 98 % (90 - 100) Blood Pressure 153/87 mm Hg Height 5 ft 11 in Weight 206 lb Body Mass Index 28.0 kg/m^2 Results Test Source Date Result Interp. Ref. Range Comments Eosinophils # (Manual) February 22, 2014 12:30am 0.1 T/MM3 N 0-0.5 Monocytes # (Manual) February 22, 2014 12:30am 0.3 T/MM3 N 0-0.8 Lymphocytes # (Manual) February 22, 2014 12:30am 3.8 T/MM3 N 1-4.8 Neutrophils # (Manual) February 22, 2014 12:30am 6.1 T/MM3 N 1.8-7.7 Eosinophils % (Manual) February 22, 2014 12:30am 1.0 % N 0-4 Monocytes % (Manual) February 22, 2014 12:30am 3.0 % N 0-9.0 Lymphocytes % (Manual) February 22, 2014 12:30am 37.0 % N 23-45 Neutrophils % (Manual) February 22, 2014 12:30am 59.0 % N 33-66 Alanine Aminotransferase (ALT/SGPT) February 22, 2014 12:30am 156 U/L H 21-72 Albumin February 22, 2014 12:30am 4.2 G/DL N 3.5-5.0 Albumin/Globulin Ratio February 22, 2014 12:30am 1.8 RATIO N 1.1-2.2 Alkaline Phosphatase February 22, 2014 12:30am 89 U/L N 38-126 Amylase Level February 18, 2014 8:18pm 68 U/L N 30-110 Anion Gap February 22, 2014 12:30am 9 MEQ/L N 5-15 Aspartate Amino Transf (AST/SGOT) February 22, 2014 12:30am 57 U/L N 17- 59 BUN/Creatinine Ratio February 22, 2014 12:30am 19 RATIO N 6-26 Basophils # (Auto) February 18, 2014 8:18pm 0.1 T/MM3 N 0-0.2 Basophils (%) (Auto) February 18, 2014 8:18pm 1.6 % N 0-2 Blood Urea Nitrogen February 22, 2014 12:30am 17.0 MG/DL N 9-20 Calcium Level February 22, 2014 12:30am 10.0 MG/DL N 8.4-10.2 Calculated Osmolality February 22, 2014 12:30am 274 MOSM/KG N 261-280 Carbon Dioxide Level February 22, 2014 12:30am 26 MEQ/L N 22-30 Chemistry Specimen Hemolysis February 22, 2014 12:30am 16 N 0-25 0-25: No Hemolysis.26-70: Slight Hemolysis - [...] decrease Phenytoin. Recommend specimen recollection. Chloride Level February 22, 2014 12:30am 107 MEQ/L N 98-107 Creatinine February 22, 2014 12:30am 0.9 MG/DL N 0.8-1.5 Eosinophils # (Auto) February 18, 2014 8:18pm 0.3 T/MM3 N 0-0.5 Eosinophils (%) (Auto) February 18, 2014 8:18pm 3.9 % N 0-4 Globulin February 22, 2014 12:30am 2.4 G/DL N 2.4-3.6 Glomerular Filtration Rate Calc February 22, 2014 12:30am 101 - Glucose Level February 22, 2014 12:30am 85 MG/DL N 75-110 Hematocrit February 22, 2014 12:30am 38.5 % L 41-53 Hemoglobin February 22, 2014 12:30am 13.4 GM/DL L 13.5-17.5 Icterus Index February 22, 2014 12:30am < 2 0-7 Immature Granulocyte # (Auto) February 18, 2014 8:18pm 0.01 T/MM3 N 0.00- 0.03 Immature Granulocyte % (Auto) February 18, 2014 8:18pm 0.2 % N 0.0-0.5 Lab Scanned Report September 26, 2009 9:28am [facility]FERENCE [facility] [id number] - Lipase February 22, 2014 12:30am 220 U/L N 23-300 Lymphocytes # (Auto) February 18, 2014 8:18pm 2.4 T/MM3 N 1-4.8 Lymphocytes (%) (Auto) February 18, 2014 8:18pm 38.3 % N 23-45 Mean Corpuscular Hemoglobin February 22, 2014 12:30am 30.9 UUG N 26-34 Mean Corpuscular Hemoglobin Concent February 22, 2014 12:30am 34.8 GM/DL N 31-37 Mean Corpuscular Volume February 22, 2014 12:30am 88.9 UM3 N 80-100 Mean Platelet Volume February 22, 2014 12:30am 9.5 UM3 N 9.4-12.4 Monocytes # (Auto) February 18, 2014 8:18pm 0.4 T/MM3 N 0-0.8 Monocytes (%) (Auto) February 18, 2014 8:18pm 6.3 % N 0-9.0 Neutrophils # (Auto) February 18, 2014 8:18pm 3.2 T/MM3 N 1.8-7.7 Neutrophils (%) (Auto) February 18, 2014 8:18pm 49.7 % N 33-66 Platelet Count February 22, 2014 12:30am 244 T/MM3 N 130-400 Potassium Level February 22, 2014 12:30am 3.8 MEQ/L N 3.6-5 RDW Standard Deviation February 22, 2014 12:30am 44.7 FL N 36.9-50.2 Red Blood Count February 22, 2014 12:30am 4.33 M/MM3 L 4.50-5.90 Sodium Level February 22, 2014 12:30am 142 MEQ/L N 134-144 Total Bilirubin February 22, 2014 12:30am 0.40 MG/DL N 0.20-1.30 Total Protein February 22, 2014 12:30am 6.6 G/DL N 6.3-8.2 Turbidity February 22, 2014 12:30am < 20 0-20 Urinalysis Comment February 18, 2014 8:30pm Microscopic not ind. - Has specimen been collected/obtained? Y Urine Bacteria February 22, 2014 12:15am Trace H - Has specimen been collected/obtained? Y Urine Bilirubin February 22, 2014 12:15am Negative - Has specimen been collected/obtained? Y Urine Blood February 22, 2014 12:15am 3+ H - Has specimen been collected /obtained? Y Urine Collection Type February 22, 2014 12:15am Cleancatch-midstream - Has specimen been collected/obtained? Y Urine Color February 22, 2014 12:15am Yellow - Has specimen been collected/obtained? Y Urine Culture Indicated February 22, 2014 12:15am Cult reflexed &setup - Has specimen been collected/obtained? Y Urine Glucose (UA) February 22, 2014 12:15am Negative - Has specimen been collected/obtained? Y Urine Ketones February 22, 2014 12:15am Negative - Has specimen been collected/obtained? Y Urine Leukocyte Esterase February 22, 2014 12:15am Trace H - Has specimen been collected/obtained? Y Urine Nitrite February 22, 2014 12:15am Positive H - Has specimen been collected/obtained? Y Urine Protein February 22, 2014 12:15am Negative - Has specimen been collected/obtained? Y Urine RBC February 22, 2014 12:15am None seen /HPF - Has specimen been collected/obtained? Y Urine Specific [place] February 22, 2014 12:15am 1.020 - Has specimen been collected/obtained? Y Urine Squamous Epithelial Cells February 22, 2014 12:15am 20-50 - Has specimen been collected/obtained? Y Urine Turbidity February 22, 2014 12:15am Clear - Has specimen been collected/obtained? Y Urine Urobilinogen February 22, 2014 12:15am 0.2 EU/DL - Has specimen been collected/obtained? Y Urine WBC February 22, 2014 12:15am None seen /HPF - Has specimen been collected/obtained? Y Urine pH February 22, 2014 12:15am 7.0 - Has specimen been collected/ obtained? Y Valproic Acid (Depakene) Level September 23, 2009 3:00pm 23 UG/ML L 50-120 White Blood Count February 22, 2014 12:30am 10.3 T/MM3 N 4.5-11.0 Urine Culture Urine, Clean Catch-Midstream March 09, 2013 2:07am Mixed Casandra Prob. Contaminants Name: JENNIFER SINGH Unit #: [id number] : 1985 Sex: M Loc / Svc: ED DOS: 02/18/14 Signed Report #: [id number] DIAGNOSTIC IMAGING REPORT TYPE OF EXAM: ABDOMEN ACUTE (INC. CHEST) Dictated By: MOSES SANCHEZ MD INDICATION: ITS.REASON: abdominal pain/rectal bleeding ABDOMEN ACUTE (INC. CHEST): Comparison: September 23, 2009 FINDINGS: The lungs are clear. There is no abnormal airspace opacity, pleural effusion or pneumothorax identified. The heart size, pulmonary vasculature and mediastinum are within normal limits. There is no free air on the upright view. The bowel gas pattern is nonobstructive and nonspecific. Gas is seen in nondilated small and large bowel to the level of the rectum. Moderate stool is seen throughout the colon. IMPRESSION: 1. No acute cardiopulmonary abnormality. 2. No evidence of acute obstruction or free air. . Procedures No known history of procedures. Encounters Encounter Location Date/Time Departed Emergency Room [facility] 02/21/14 10:18pm Departed Emergency Room [facility] 02/18/14 6:33pm Recent Diagnosis
--- OUTSIDE RECORDS SUMMARY | 2016-06-19 18:45 | XMS REPORT | Referral Summary ---
Author Author [facility] Organization [facility] Address Unknown Phone Unavailable Care Team Providers Care Certified Teacher Assistant Name Role Phone Nikki Burnham Primary Care Physician [phone] Encounter [facility] [id number] Date(s): 04/04/16 - 04/05/16 [facility] [address] [place], [place] [address] Discharge Diagnosis: H/O acute pyelonephritis Discharge Disposition: 01-Home or Self Care Attending Physician: Crystal Echeverria MD Admitting Physician: Crystal Echeverria MD Vital Signs Most recent to 1 oldest [Reference Range]: Temperature Oral 36.7 degC [35.8-37.3 degC] (04/04/16 11:40 PM) Peripheral Pulse 80 bpm Rate [60-100 bpm] (04/05/16 4:20 AM) Heart Rate Monitored 100 bpm [60-100 bpm] (04/05/16 2:12 AM) Respiratory Rate 16 br/min [14-20 br/min] (04/05/16 4:20 AM) Blood Pressure 120/94 mmHg [90-140/60-90 mmHg] (04/05/16 4:20 AM) Mean Arterial 113 mmHg Pressure, Cuff (04/05/16 2:12 AM) SpO2 98 % (04/05/16 4:20 AM) Problem List Condition Effective Dates Status Health Status Informant Abdominal Resolved pain(Confirmed) Abdominal 08/30/13 Active pain(Confirmed) Abdominal Resolved pain(Confirmed) Abdominal pain of Active unknown etiology(Confirmed) Medication Active overdose(Confirmed) Acute Active pain(Confirmed) [place] 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) Anxiety(Confirmed) Active patient [place] III: Active patient Asthma(Confirmed) At risk for Active injury(Confirmed)1 Benign Active hematuria(Confirmed) Benign Active hematuria(Confirmed) Bipolar(Confirmed) Active patient Bipolar disorder, Active most recent episode depressed(Confirmed) [place] I: Bipolar Active disease, by hx(Confirmed) [place] III: Crohn Active disease(Confirmed) Depression(Confirmed Active patient ) Abdominal pain, Active chronic, generalized(Confirme d) Tachycardia(Confirme Active patient d) Hematuria(Confirmed) 08/30/13 Active Intractable nausea Active and vomiting(Confirmed) [place] III: Active patient Hypertension(Confirm ed) Ineffective coping Active (individual)(Confirm ed)2 [place] I: Active patient Insomnia(Confirmed) Kidney Active patient [...] 0 Refill(s) Start Date: 08/20/15 Status: Ordered Cipro 500 mg oral tablet 500 mg 1 tabs, Oral, q12hr, X 10 days, # 20 tabs, 0 Refill(s), Pharmacy: [facility] [place], 1 tabs Oral q12hr,x10 days Start Date: 04/05/16 Stop Date: 04/15/16 Status: Ordered Colace 100 mg oral capsule 100 mg 1 caps, Oral, BID, as needed for constipation, # 20 caps, 0 Refill(s) Start Date: 11/27/15 Stop Date: 12/07/15 Status: Ordered Effexor XR 37.5 mg oral capsule, extended release 75 mg 2 caps, Oral, Daily, # 60 caps, 0 Refill(s), Indication: depression/ anxiety, Pharmacy: [facility], 2 caps Oral Daily Start Date: 05/17/15 [...] tabs, 0 Refill(s), Indication: mood stabil/sleep/anxiety, Pharmacy: [facility] Start Date: 05/17/15 Status: Ordered SEROquel Oral, 0 Refill(s) Start Date: 03/30/16 Status: Ordered Viberzi 100 mg oral tablet 100 mg 1 tabs, Oral, BID, with food, 0 Refill(s) Start Date: 08/20/15 Status: Ordered Results Hematology Most recent to 1 oldest [Reference Range]: WBC [4.8-10.8 8.5 10*3/uL 10*3/uL] (04/05/16 12:42 AM) RBC [4.60-6.20] 5.00 (04/05/16 12:42 AM) Hgb [14.0-18.0 14.1 gm/dL gm/dL] (04/05/16 12:42 AM) Hct [42.0-52.0 %] 43.0 % (04/05/16 12:42 AM) MCV [82.0-99.0 fL] 86.0 fL (04/05/16 12:42 AM) MCH [27.0-32.0 pg] 28.2 pg (04/05/16 12:42 AM) MCHC [32.0-36.0 32.8 gm/dL gm/dL] (04/05/16 12:42 AM) RDW [11.5-14.5 %] 14.3 % (04/05/16 12:42 AM) Platelet [150-400 273 10*3/uL 10*3/uL] (04/05/16 12:42 AM) MPV [9.4-12.3 fL] 10.3 fL (04/05/16 12:42 AM) Immature 0.1 % Granulocytes (04/05/16 12:42 AM) [0.0-1.0 %] Neutrophils [51-75 45 % %] *LOW* (04/05/16 12:42 AM) Lymphocytes [20-46 46 % %] (04/05/16 12:42 AM) Monocytes [4-11 %] 6 % (04/05/16 12:42 AM) Eosinophils [0-4 %] 3 % (04/05/16 12:42 AM) Basophils [0-2 %] 1 % (04/05/16 12:42 AM) Neutro Absolute 3.79 [1.90-7.00] (04/05/16 12:42 AM) Lymph Absolute 3.92 [0.80-3.30] *HI* (04/05/16 12:42 AM) [place] Absolute 0.50 [0.30-1.00] (04/05/16 12:42 AM) Eos Absolute 0.23 [0.00-0.50] (04/05/16 12:42 AM) Baso Absolute 0.04 [0.00-0.20] (04/05/16 12:42 AM) Nucleated RBC 0.0 /100 WBC Automated [0 /100 (04/05/16 12:42 AM) WBC] Chemistry Most recent to 1 oldest [Reference Range]: Sodium Lvl [136-144 143 mEq/L mEq/L] (04/05/16 12:42 AM) Potassium Lvl 3.7 mEq/L [3.6-5.1 mEq/L] (04/05/16 12:42 AM) Chloride [99-109 107 mEq/L mEq/L] (04/05/16 12:42 AM) CO2 [22-32 mEq/L] 24 mEq/L (04/05/16 12:42 AM) AGAP [3-20] 12 (04/05/16 12:42 AM) BUN [4-20 mg/dL] 8 mg/dL (04/05/16 12:42 AM) Glucose Lvl [70-100 81 mg/dL mg/dL] (04/05/16 12:42 AM) Creatinine Lvl 0.87 mg/dL [0.64-1.27 mg/dL] (04/05/16 12:42 AM) eGFR [>60] >60 1 (04/05/16 12:42 AM) Calcium Lvl 9.4 mg/dL [8.6-10.0 mg/dL] (04/05/16 12:42 AM) Albumin Lvl [3.5-4.8 4.0 gm/dL gm/dL] (04/05/16 12:42 AM) Total Protein 6.9 gm/dL [6.1-7.9 gm/dL] (04/05/16 12:42 AM) Globulin [1.9-4.3 2.9 gm/dL gm/dL] (04/05/16 12:42 AM) ALT [17-63 U/L] 48 U/L (04/05/16 12:42 AM) AST [15-41 U/L] 36 U/L (04/05/16 12:42 AM) Alk Phos [26-104 103 U/L U/L] (04/05/16 12:42 AM) Bili Total [0.2-1.2 0.4 mg/dL 2 mg/dL] (04/05/16 12:42 AM) Lipase Lvl [8-48 54 U/L U/L] *HI* (04/05/16 12:42 AM) 1Result Comment: Multiply eGFR results by 1.21 for race. 2Result Comment: Naproxen, specifically the metabolite O-desmethylnaproxen, may cause spurious elevation in Total Bilirubin levels. Urinalysis Most recent to 1 oldest [Reference Range]: UA Color Yellow (04/05/16 12:42 AM) UA Appear Cloudy *ABN* (04/05/16 12:42 AM) UA pH [5.0-8.0] 6.0 (04/05/16 12:42 AM) UA Leuk Est Pos 1+ [Negative] *ABN* (04/05/16 12:42 AM) UA Nitrite Negative [Negative] (04/05/16 12:42 AM) UA Protein Negative [Negative] (04/05/16 12:42 AM) UA Glucose Negative [Negative] (04/05/16 12:42 AM) UA Ketones Negative [Negative] (04/05/16 12:42 AM) UA Urobilinogen Negative [<1.0] (04/05/16 12:42 AM) UA Bili [Negative] Negative (04/05/16 12:42 AM) UA Blood [Negative] Pos 3+ *ABN* (04/05/16 12:42 AM) UA Spec Grav 1.010 [1.003-1.030] (04/05/16 12:42 AM) Type Clean Catch (04/05/16 12:42 AM) UA WBC [0-4] 5-10 *ABN* (04/05/16 12:42 AM) UA RBC [0-2 /HPF] >50 /HPF *ABN* (04/05/16 12:42 AM) Epithelial Cells 2-5 (04/05/16 12:42 AM) UA Bacteria Moderate *ABN* (04/05/16 12:42 AM) Immunizations Given and Recorded Vaccine Date Status [...]
--- OUTSIDE RECORDS SUMMARY | 2016-06-19 18:45 | XMS REPORT | Continuity of Care Document ---
Author Author [facility] Organization [facility] Address Unknown Phone Unavailable Care Team Providers Care Cold Roller Name Role Phone GERONIMO DOYLE MD Primary Care Physician [phone] Insurance Providers Payer Name Policy Number Subscriber Name Relationship Medicare [id number] Jennifer Singh Self [facility] [id number] Jennifer Singh Self Advance Directives Directive Response Recorded Date/Time Advanced Directives Type None 04/25/14 1:15pm Problems Medical Problems Problem Onset Date Status [...] tract infection) Unknown Active Hematuria Unknown Active Hematuria Unknown Active Flank pain Unknown Active Abdominal pain Unknown Active Medications Medication Dose Route Sig Days/Qty Instructions Order Date Discontinued Date Status Fluoxetine HCl 40 Mg PO DAILY 02/18/14 Active Nebivolol HCl 20 Mg PO DAILY 02/18/14 Active Diltiazem HCl 240 Mg PO DAILY 02/18/14 Active Ibuprofen Unknown Dose PO Q4H PRN [...] 1 THREE TIMES A DAY 04/17/14 Active Zonisamide 300 Mg BEDTIME 04/17/14 Active Metronidazole 500 Mg PO Q6H/0300,0900,1500,2100 For ENTERITIS 7 Days Active Hydrocodone/Acetaminophen 1 Tab PO EVERY 4-6 HOURS For PAIN 12 Qty Active Zaleplon 04/25/14 Active Prochlorperazine Maleate 1 Tab PO Every 8 Hours PRN NAUSEA 10 Qty FOR ABDOMINAL PAIN/CRAMPING OR NAUSEA 04/25/14 Active Social History Social History Problem Response Recorded Date/Time Chewing Tobacco Status No 03/09/2013 1:23am Hx Substance Use No 04/25/2014 1:23pm Hx Alcohol Use No 04/25/2014 1:23pm Tobacco Usage none 02/18/2014 7:57pm Query Response Start Date Stop Date Smoking Status Never smoker Hospital Discharge Instructions No hospital discharge instructions. Plan of Care No plan of care. Functional Status Query Response Date Recorded Physical Hygiene Self April 25, 2014 1:23pm Disabilities Visual April 25, 2014 1:23pm Devices Used Glasses April 25, 2014 1:23pm Dressing Self April 25, 2014 1:23pm Ambulation Self April 25, 2014 1:23pm Diet Self April 25, 2014 1:23pm Mental Status Alert Oriented April 25, 2014 3:55pm Disabilities Visual April 25, 2014 1:23pm Devices Used Glasses April 25, 2014 1:23pm Physical Hygiene Self April 25, 2014 1:23pm Dressing Self April 25, 2014 1:23pm Ambulation Self April 25, 2014 1:23pm Diet Self April 25, 2014 1:23pm Allergies, Adverse Reactions, Alerts Allergen Type Severity [...] Vital Signs Vital Response Date/Time Temperature (Fahrenheit) 97.1 deg F (96.8 - 99.1) Temperature (Calculated Celsius) 36.41252 degrees C (36.0 - 37.3) Pulse Rate (adult) 89 bpm (60 - 100) Respiratory Rate 16 breaths/min (10 - 20) O2 Sat by Pulse Oximetry 99 % (90 - 100) Blood Pressure 119/72 mm Hg Height 5 ft 11 in Weight 230 lb Body Mass Index 32.0 kg/m^2 Results Test Source Date Result Interp. Ref. Range Comments Alanine Aminotransferase (ALT/SGPT) April 25, 2014 2:22pm 36 U/L N 21- 72 Albumin April 25, 2014 2:22pm 4.0 G/DL N 3.5-5.0 Albumin/Globulin Ratio April 25, 2014 2:22pm 1.5 RATIO N 1.1-2.2 Alkaline Phosphatase April 25, 2014 2:22pm 77 U/L N 38-126 Amylase Level April 25, 2014 2:22pm 55 U/L N 30-110 Anion Gap April 25, 2014 2:22pm 12 MEQ/L N 5-15 Aspartate Amino Transf (AST/SGOT) April 25, 2014 2:22pm 28 U/L N 17-59 BUN/Creatinine Ratio April 25, 2014 2:22pm 15 RATIO N 6-26 Basophils # (Auto) April 25, 2014 2:22pm 0.1 T/MM3 N 0-0.2 Basophils (%) (Auto) April 25, 2014 2:22pm 0.7 % N 0-2 Blood Urea Nitrogen April 25, 2014 2:22pm 15.0 MG/DL N 9-20 Calcium Level April 25, 2014 2:22pm 9.2 MG/DL N 8.4-10.2 Calculated Osmolality April 25, 2014 2:22pm 276 MOSM/KG N 261-280 Carbon Dioxide Level April 25, 2014 2:22pm 25 MEQ/L N 22-30 Chemistry Specimen Hemolysis April 25, 2014 2:22pm < 15 0-25 0-25: No Hemolysis.26-70: Slight [...] Phenytoin. Recommend specimen recollection. Chloride Level April 25, 2014 2:22pm 106 MEQ/L N 98-107 Creatinine April 25, 2014 2:22pm 1.0 MG/DL N 0.8-1.5 Eosinophils # (Auto) April 25, 2014 2:22pm 0.3 T/MM3 N 0-0.5 Eosinophils # (Manual) February 22, 2014 12:30am 0.1 T/MM3 N 0-0.5 Eosinophils % (Manual) February 22, 2014 12:30am 1.0 % N 0-4 Eosinophils (%) (Auto) April 25, 2014 2:22pm 3.6 % N 0-4 Globulin April 25, 2014 2:22pm 2.7 G/DL N 2.4-3.6 Glomerular Filtration Rate Calc April 25, 2014 2:22pm 90 - Glucose Level April 25, 2014 2:22pm 105 MG/DL N 75-110 Hematocrit April 25, 2014 2:22pm 41.3 % N 41-53 Hemoglobin April 25, 2014 2:22pm 14.1 GM/DL N 13.5-17.5 Icterus Index April 25, 2014 2:22pm < 2 0-7 Immature Granulocyte # (Auto) April 25, 2014 2:22pm 0.02 T/MM3 N 0.00- 0.03 Immature Granulocyte % (Auto) April 25, 2014 2:22pm 0.3 % N 0.0-0.5 Lab Scanned Report September 26, 2009 9:28am REFERENCE LAB [id number] - Lipase April 25, 2014 2:22pm 112 U/L N 23-300 Lymphocytes # (Auto) April 25, 2014 2:22pm 2.3 T/MM3 N 1-4.8 Lymphocytes # (Manual) February 22, 2014 12:30am 3.8 T/MM3 N 1-4.8 Lymphocytes % (Manual) February 22, 2014 12:30am 37.0 % N 23-45 Lymphocytes (%) (Auto) April 25, 2014 2:22pm 33.0 % N 23-45 Mean Corpuscular Hemoglobin April 25, 2014 2:22pm 30.9 UUG N 26-34 Mean Corpuscular Hemoglobin Concent April 25, 2014 2:22pm 34.1 GM/DL N 31-37 Mean Corpuscular Volume April 25, 2014 2:22pm 90.4 UM3 N 80-100 Mean Platelet Volume April 25, 2014 2:22pm 9.8 UM3 N 9.4-12.4 Monocytes # (Auto) April 25, 2014 2:22pm 0.6 T/MM3 N 0-0.8 Monocytes # (Manual) February 22, 2014 12:30am 0.3 T/MM3 N 0-0.8 Monocytes % (Manual) February 22, 2014 12:30am 3.0 % N 0-9.0 Monocytes (%) (Auto) April 25, 2014 2:22pm 9.2 % H 0-9.0 Neutrophils # (Auto) April 25, 2014 2:22pm 3.7 T/MM3 N 1.8-7.7 Neutrophils # (Manual) February 22, 2014 12:30am 6.1 T/MM3 N 1.8-7.7 Neutrophils % (Manual) February 22, 2014 12:30am 59.0 % N 33-66 Neutrophils (%) (Auto) April 25, 2014 2:22pm 53.2 % N 33-66 Platelet Count April 25, 2014 2:22pm 293 T/MM3 N 130-400 Potassium Level April 25, 2014 2:22pm 3.6 MEQ/L N 3.6-5 RDW Standard Deviation April 25, 2014 2:22pm 44.4 FL N 36.9-50.2 Red Blood Count April 25, 2014 2:22pm 4.57 M/MM3 N 4.50-5.90 Sodium Level April 25, 2014 2:22pm 143 MEQ/L N 134-144 Total Bilirubin April 25, 2014 2:22pm 0.30 MG/DL N 0.20-1.30 Total Protein April 25, 2014 2:22pm 6.7 G/DL N 6.3-8.2 Turbidity April 25, 2014 2:22pm < 20 0-20 Urinalysis Comment February 18, 2014 8:30pm Microscopic not ind. - Has specimen been collected/obtained? Y Urine Bacteria April 25, 2014 1:30pm 1+ H - Has specimen been collected /obtained? Y Urine Bilirubin April 25, 2014 1:30pm Negative - Has specimen been collected/obtained? Y Urine Blood April 25, 2014 1:30pm 3+ H - Has specimen been collected/ obtained? Y Urine Collection Type April 25, 2014 1:30pm Cleancatch-midstream - Has specimen been collected/obtained? Y Urine Color April 25, 2014 1:30pm Yellow - Has specimen been collected/obtained? Y Urine Culture Indicated February 22, 2014 12:15am Cult reflexed &setup - Has specimen been collected/obtained? Y Urine Glucose (UA) April 25, 2014 1:30pm Negative - Has specimen been collected/obtained? Y Urine Ketones April 25, 2014 1:30pm Negative - Has specimen been collected/obtained? Y Urine Leukocyte Esterase April 25, 2014 1:30pm Negative - Has specimen been collected/obtained? Y Urine Nitrite April 25, 2014 1:30pm Negative - Has specimen been collected/obtained? Y Urine Protein April 25, 2014 1:30pm 1+ H - Has specimen been collected/ obtained? Y Urine RBC April 25, 2014 1:30pm 10-20 /HPF H - Has specimen been collected/obtained? Y Urine Specific [place] April 25, 2014 1:30pm 1.025 - Has specimen been collected/obtained? Y Urine Squamous Epithelial Cells April 25, 2014 1:30pm 5-10 - Has specimen been collected/obtained? Y Urine Turbidity April 25, 2014 1:30pm Sl cloudy - Has specimen been collected/obtained? Y Urine Urobilinogen April 25, 2014 1:30pm 0.2 EU/DL - Has specimen been collected/obtained? Y Urine WBC April 25, 2014 1:30pm 5-10 /HPF H - Has specimen been collected/obtained? Y Urine pH April 25, 2014 1:30pm 7.0 - Has specimen been collected/ obtained? Y Valproic Acid (Depakene) Level September 23, 2009 3:00pm 23 UG/ML L 50-120 White Blood Count April 25, 2014 2:22pm 6.9 T/MM3 N 4.5-11.0 Urine Culture Urine, Clean Catch-Midstream April 20, 2014 10:10pm Mixed Casandra Prob. Contaminants Name: JENNIFER SINGH Unit #: [id number] : 1985 Sex: M Loc / Svc: ED DOS: 04/25/14 Signed Report #: [id number] DIAGNOSTIC IMAGING REPORT TYPE OF EXAM: ABDOMEN ACUTE (INC. CHEST) Dictated By: MOSES SANCHEZ MD Indication: ITS.REASON: abdominal pain ABDOMEN ACUTE (INC. CHEST): Comparison: Acute abdomen series dated February 18, 2014 and KUB dated April FINDINGS: The lungs are mild hypoinflated, but clear. There is no abnormal airspace opacity, pleural effusion or pneumothorax identified. The heart size, pulmonary vasculature and mediastinum are within normal limits. There is no free air on the upright view. The bowel gas pattern is nonobstructive and nonspecific. Gas is seen in nondilated small and large bowel to the level of the rectum. Moderate to large amount of stool is seen throughout the colon. The bony structures are grossly unremarkable. IMPRESSION: 1. No acute cardiopulmonary abnormality. 2. No evidence of acute obstruction or free air. Increased colonic stool burden. . Procedures Procedure Status Date Provider(s) X-RAY [...] ADDON completed 02/18/14 TX/PRO/DX INJ SAME DRUG HOLLOCK MAKER completed 02/18/14 TX/PRO/DX INJ SAME DRUG HOLLOCK MAKER completed 02/18/14 EMERGENCY DEPT VISIT completed 02/18/14"INJECTION, PANTOPRAZOLE SODIUM, PER VIAL" completed 02/18/14967296"INJECTION, HYDROMORPHONE, UP TO 4 MG" completed 02/18/14"INJECTION, [...] NORMAL SALINE SOLUTION , 1000 CC" completed 02/21/14463935"INFUSION, NORMAL SALINE SOLUTION , 250 CC" completed 02/21/14"LOW OSMOLAR CONTRAST MATERIAL, 300-399 MG/ML IODINE C completed CT ABD & PELVIS W/O CONTRAST completed 04/17/14 COMPREHEN METABOLIC PANEL completed 04/17/14 URINALYSIS AUTO W/SCOPE completed 04/17/14 ASSAY OF AMYLASE completed 04/17/14 ASSAY OF LIPASE completed 04/17/14 COMPLETE CBC W/AUTO DIFF WBC completed 04/17/14 HYDRATE IV INFUSION ADD-ON completed 04/17/14 THER/PROPH/DIAG INJ IV PUSH completed 04/17/14 TX/PRO/DX INJ NEW DRUG ADDON completed 04/17/14 TX/PRO/DX INJ SAME DRUG HOLLOCK MAKER completed 04/17/14 EMERGENCY DEPT VISIT completed 04/17/14 [id number]"INJECTION, HYDROMORPHONE, UP TO 4 MG" completed 04/17/14 [id number]"INJECTION, HYDROMORPHONE, UP TO 4 MG" completed 04/17/14 [id number]"INJECTION, ONDANSETRON HYDROCHLORIDE, PER 1 MG" completed 04/17/14 [id number]"INFUSION, NORMAL SALINE SOLUTION , 1000 CC" completed 04/17/14 X-RAY EXAM OF ABDOMEN completed 04/20/14 CT ABD & PELV W/CONTRAST completed 04/20/14 COMPREHEN METABOLIC PANEL completed 04/20/14 URINALYSIS AUTO W/SCOPE completed 04/20/14 ASSAY OF AMYLASE completed 04/20/14 ASSAY OF LIPASE completed 04/20/14 COMPLETE CBC W/AUTO DIFF WBC completed 04/20/14 URINE CULTURE/COLONY COUNT completed 04/20/14 HYDRATE IV INFUSION ADD-ON completed 04/20/14 THER/PROPH/DIAG INJ IV PUSH completed 04/20/14 TX/PRO/DX INJ NEW DRUG ADDON completed 04/20/14 TX/PRO/DX INJ NEW DRUG ADDON completed 04/20/14 TX/PRO/DX INJ NEW DRUG ADDON completed 04/20/14 TX/PRO/DX INJ SAME DRUG HOLLOCK MAKER completed 04/20/14 EMERGENCY DEPT VISIT completed 04/20/14 [id number] ITEM OR SERVICE completed 04/20/14 [id number] ITEM OR SERVICE completed 04/20/14 [id number]"INJECTION, PANTOPRAZOLE SODIUM, PER VIAL" completed 04/20/14 DRUG SCR, UR,STAT completed 04/20/14 [id number]"INJECTION, HYDROMORPHONE, UP TO 4 MG" completed 03/13/15 [id number]"INJECTION, HYDROMORPHONE, UP TO 4 MG" completed 04/20/14"INJECTION, ONDANSETRON HYDROCHLORIDE, PER 1 MG" completed 04/20/14"INJECTION, FENTANYL CITRATE, 0.1 MG" completed 04/20/14"INFUSION, NORMAL SALINE SOLUTION , 1000 CC" completed 04/20/14"LOW OSMOLAR CONTRAST MATERIAL, 300-399 MG/ML IODINE C completed Encounters Encounter Location Date/Time Departed Emergency Room [facility] 04/25/14 1:09pm Departed Emergency Room [facility] 04/20/14 9:55pm Departed Emergency Room [facility] 04/17/14 1:13pm Departed Emergency Room [facility] 02/21/14 10:18pm Departed Emergency Room [facility] 02/18/14 6:33pm Recent Diagnosis
--- OUTSIDE RECORDS SUMMARY | 2016-06-19 18:46 | XMS REPORT | Continuity of Care Document ---
Author Author [facility] Organization [facility] Address Unknown Phone Unavailable Support Name Relationship Address Phone VEE SCOTT MD Caregiver [address] [place] [address] Unavailable J LUIS ROSARIO Caregiver [address] [place] [address] Unavailable MAGED VILLALTA Next Of Kin [address] [place], [place] [id number] Insurance Providers Guarantor Jennifer Singh Address [address] [place] [address] Email DENIED 04-12-16 Payer [facility] State Plan Policy Number [id number] Subscriber's Name Jennifer Singh Relationship 18 Self Effective Date 16 Expiration Date 16 Payer Medicareadvantra Ppo Policy Number [id number] Subscriber's Name Jennifer Singh Relationship 18 Self Group Number [id number] Chief Complaint and Reason for Visit Chief Complaint Flank Pain Reason for Visit Hematuria Flank pain Problems Active Problems Medical Problem Onset Date Status Abdominal pain Unknown Acute Crohn disease Unknown Acute Enteritis Unknown Acute Flank pain Unknown Acute Hematuria Unknown Acute Hematuria Unknown Acute Nephrolithiasis Unknown Acute Rectal bleeding Unknown Acute Renal colic Unknown Acute Right sided abdominal pain Unknown Acute UTI (urinary tract infection) Unknown Acute Vomiting Unknown Past Problems Medical Problem Onset Date Abdominal pain Unknown Hematemesis Unknown Hematuria, unspecified Unknown Recurrent abdominal pain Unknown Right flank pain Unknown Medications Current Home Medications Medication Dose Units Route Directions Days Qty Instructions Start Date Acetaminophen 500 Mg Tablet 1,000 Mg Oral Every 8 Hours as needed for Pain 04/12/16 Atenolol 50 Mg Tablet 50 Mg Oral Bedtime 04/12/16 Ibuprofen 200 Mg Tablet 800 Mg Oral Every 8 Hours as needed for Pain 04/12/16 Prochlorperazine Maleate (Compazine) 10 Mg Tablet 10 Mg Oral Four Times Daily 30 Tablet 04/12/16 Quetiapine Fumarate (Quetiapine Fumarate Er) 300 Mg Tab.er.24h 300 Mg Oral Bedtime 04/12/16 Suvorexant (Belsomra) 10 Mg Tablet 10 Mg Oral Bedtime 04/12/16 Vortioxetine Hydrobromide (Brintellix) 5 Mg Tablet 5 Mg Oral Daily 04/12/16 Past Home Medications Medication Directions Ordered Status Hydrocodone/Acetaminophen (Hydrocodon-Acetaminophen 5-300) 1 Each Tablet, 1 Tab Oral Every 4-6 Hours for Pain 04/21/14 Discontinued Prochlorperazine Maleate (Compazine) 5 Mg Tablet, 1 Tab Oral Every 8 Hours as needed for Nausea 04/25/14 Discontinued Social History Social History Problem Response Recorded Date/Time Onset Date Status Chewing Tobacco Status No 03/09/2013 1:23am Not Applicable Not Applicable Hx Substance Use No 04/12/2016 9:35pm Not Applicable Not Applicable Hx Alcohol Use No 04/12/2016 9:35pm Not Applicable Not Applicable Tobacco Usage none 02/18/2014 7:57pm Not Applicable Not Applicable Query Response Start Date Stop Date Smoking Status Never smoker Hospital Discharge Instructions No hospital discharge instructions. Plan of Care Discharge Date 04/12/16 10:25pm Disposition 01 DISCHARGED HOME, SELF-CARE Condition at Discharge Improved Instructions/Education Provided Flank Pain (ED) Prescriptions See Medication Section Referrals J LUIS ROSARIO Nikki Address: [facility] [place] [address] Additional Instructions/Education Compazine 10 mg one tablet every 6-8 hours for nausea/flank pain Continue using ibuprofen and/or Tylenol for pain control See your doctor or your urologist if not improving Care Plan and Goals Physician Care Plan Problem: Flank pain with hematuria, chronic/recurrent Goal: Follow up with primary care provider Instructions: Take medications and follow care plan as discussed/written Compazine 10 mg one tablet every 6-8 hours for nausea/flank pain Continue using ibuprofen and/or Tylenol for pain control See your doctor or your urologist if not improving Functional Status No functional status results. Allergies, Adverse Reactions, Alerts Allergen Type Severity Reaction Status Last Updated dextromethorphan HBr Allergy Severe THROAT SWELLING, HIVES Active 04/12/16 pseudoephedrine HCl Allergy Severe THROAT SWELLING, HIVES Active 04/12/16 Haloperidol Allergy Unknown RASH Active 04/12/16 Codeine Allergy Severe Active 04/12/16 Tramadol Allergy Unknown Active 04/12/16 Doxylamine Allergy Severe THROAT SWELLING, HIVES Active 04/12/16 Ketorolac Allergy Unknown RASH Active 04/12/16 Duloxetine Allergy Unknown RASH Active 04/12/16 PLASTIC TAPE Allergy Mild Active 02/21/14 Immunizations Query Response on File Recorded Date/Time Hx Influenza Vaccination Y fall 201304/30/14 11:15am Hx Influenza Vaccination Y fall 201304/30/14 11:15am Influenza Vaccine Hx fall 201504/12/16 9:35pm Vital Signs Acute Vital Signs Vital Response Date/Time Temperature (Fahrenheit) 98.3 deg F (96.8 - 99.1) 04/12/2016 8:50pm Temperature (Calculated Celsius) 36.35833 degrees C (36.0 - 37.3) 04/12/2016 8:50pm Pulse Rate (adult) 108 bpm (60 - 100) 04/12/2016 10:10pm Respiratory Rate 17 breaths/min (10 - 20) 04/12/2016 10:10pm O2 Sat by Pulse Oximetry 98 % (90 - 100) 04/12/2016 10:10pm Blood Pressure 134/87 mm Hg 04/12/2016 10:10pm Height (Feet) 5 feet 04/12/2016 8:50pm Height (Inches) 11.00 inches 04/12/2016 8:50pm Weight (Kilograms) 96.300 kg 04/12/2016 8:50pm Body Mass Index (BMI) 29.0 04/12/2016 8:50pm Results Laboratory Results Test Name Result Units Flags Reference Collection Date/Time Result Date/ Time Comments Total Bilirubin 0.70 MG/DL 0.20-1.30 03/07/2016 4:09pm 03/07/2016 4: 22pm Alkaline Phosphatase 93 U/L 38-126 03/07/2016 4:09pm 03/07/2016 4:22pm Total Protein 8.0 G/DL 6.3-8.2 03/07/2016 4:09pm 03/07/2016 4:22pm Albumin 4.6 G/DL 3.5-5.0 03/07/2016 4:09pm 03/07/2016 4:22pm Globulin 3.4 G/DL 2.4-3.6 03/07/2016 4:09pm 03/07/2016 4:22pm Albumin/Globulin Ratio 1.4 RATIO 1.1-2.2 03/07/2016 4:09pm 03/07/2016 4 :22pm Aspartate Amino Transf (AST/SGOT) 29 U/L 17-59 03/07/2016 4:09pm 2016 4:22pm Alanine Aminotransferase (ALT/SGPT) 42 U/L 21-72 03/07/2016 4:pm 4:22pm Lipase 195 U/L 23-300 03/07/2016 4:pm 03/07/2016 4:22pm White Blood Count 6.2 T/MM3 4.5-11.0 03/09/2016 5:33pm 03/09/2016 5: 38pm Red Blood Count 4.92 M/MM3 4.50-5.90 03/09/2016 5:33pm 03/09/2016 5: 38pm Hemoglobin 13.9 GM/DL 13.5-17.5 03/09/2016 5:33pm 03/09/2016 5:38pm Hematocrit 42.2 % 41-53 03/09/2016 5:33pm 03/09/2016 5:38pm Mean Corpuscular Volume 85.8 UM3 80-100 03/09/2016 5:33pm 03/09/2016 5: 38pm Mean Corpuscular Hemoglobin 28.3 UUG 26-34 03/09/2016 5:33pm 2016 5:38pm Mean Corpuscular Hemoglobin Concent 32.9 GM/DL 31-37 03/09/2016 5:33pm 03/09/2016 5:38pm RDW Standard Deviation 44.9 FL 36.9-50.2 03/09/2016 5:33pm 03/09/2016 5 :38pm Platelet Count 441 T/MM3 H 130-400 03/09/2016 5:33pm 03/09/2016 5:38pm Mean Platelet Volume 9.3 UM3 L 9.4-12.4 03/09/2016 5:33pm 03/09/2016 5: 38pm Neutrophils (%) (Auto) 57.2 % 33-66 03/09/2016 5:33pm 03/09/2016 5: 38pm Lymphocytes (%) (Auto) 36.8 % 23-45 03/09/2016 5:3303/09/2016 5: 38pm Monocytes (%) (Auto) 4.0 % 0-9.0 03/09/2016 5:33pm 03/09/2016 5:38pm Eosinophils (%) (Auto) 1.5 % 0-4 03/09/2016 5:33pm 03/09/2016 5:38pm Basophils (%) (Auto) 0.3 % 0-2 03/09/2016 5:33pm 03/09/2016 5:38pm Immature Granulocyte % (Auto) 0.2 % 0.0-0.5 03/09/2016 5:33pm 2016 5:38pm Absolute Neutrophils (auto) 3.5 T/MM3 1.8-7.7 03/09/2016 5:33pm 2016 5:38pm Absolute Lymphocytes (auto) 2.3 T/MM3 1-4.8 03/09/2016 5:33pm 2016 5:38pm Absolute Monocytes (auto) 0.3 T/MM3 0-0.8 03/09/2016 5:33pm 03/09/2016 5:38pm Absolute Eosinophils (auto) 0.1 T/MM3 0-0.5 03/09/2016 5:33pm 2016 5:38pm Absolute Basophils (auto) 0.0 T/MM3 0-0.2 03/09/2016 5:33pm 03/09/2016 5:38pm Absolute Immature Granulocyte (auto 0.01 T/MM3 0.00-0.03 03/09/2016 5: 33pm 03/09/2016 5:38pm Icterus Index < 2 0-7 03/09/2016 5:03/09/2016 5:46pm Chemistry Specimen Hemolysis < 15 0-25 03/09/2016 5:03/09/2016 5 :46pm 0-25: Specimen Exhibited No Hemolysis. Turbidity < 20 0-20 03/09/2016 5:33pm 03/09/2016 5:46pm Sodium Level 149 MEQ/L H 134-144 03/09/2016 5:33pm 03/09/2016 5:46pm Potassium Level 3.7 MEQ/L 3.6-5 03/09/2016 5:33pm 03/09/2016 5:46pm Chloride Level 108 MEQ/L H 98-107 03/09/2016 5:33pm 03/09/2016 5:46pm Carbon Dioxide Level 27 MEQ/L 22-30 03/09/2016 5:33pm 03/09/2016 5: 46pm Anion Gap 14 MEQ/L 5-15 03/09/2016 5:33pm 03/09/2016 5:46pm Blood Urea Nitrogen 4.0 MG/DL L 9-20 03/09/2016 5:33pm 03/09/2016 5: 46pm Creatinine 0.8 MG/DL 0.8-1.5 03/09/2016 5:33pm 03/09/2016 5:46pm BUN/Creatinine Ratio 5 RATIO L 6-26 03/09/2016 5:33pm 03/09/2016 5:46pm Glomerular Filtration Rate Calc 114 03/09/2016 5:33pm 03/09/2016 5: 46pm Glucose Level 95 MG/DL 75-110 03/09/2016 5:33pm 03/09/2016 5:46pm Calculated Osmolality 283 MOSM/KG H 261-280 03/09/2016 5:33pm 2016 5:46pm Calcium Level 10.0 MG/DL 8.4-10.2 03/09/2016 5:33pm 03/09/2016 5:46pm Urine Collection Type CLEANCATCH-MIDSTREAM 04/12/2016 9:00pm 2016 9:07pm Urine Color YELLOW YELLOW 04/12/2016 9:00pm 04/12/2016 9:07pm Urine Turbidity SL CLOUDY CLEAR 04/12/2016 9:00pm 04/12/2016 9:07pm Urine Specific [place] 1.015 1.015-1.025 04/12/2016 9:00pm 2016 9:07pm Urine pH 6.0 5.0-8.0 04/12/2016 9:00pm 04/12/2016 9:07pm Urine Leukocyte Esterase TRACE A NEGATIVE 04/12/2016 9:00pm 2016 9:07pm Urine Nitrite NEGATIVE NEGATIVE 04/12/2016 9:00pm 04/12/2016 9:07pm Urine Protein NEGATIVE NEGATIVE 04/12/2016 9:00pm 04/12/2016 9:07pm Urine Glucose (UA) NEGATIVE NEGATIVE 04/12/2016 9:00pm 04/12/2016 9: 07pm Urine Ketones NEGATIVE NEGATIVE 04/12/2016 9:00pm 04/12/2016 9:07pm Urine Urobilinogen 1.0 EU/DL NORMAL 04/12/2016 9:00pm 04/12/2016 9: 07pm Urine Bilirubin NEGATIVE NEGATIVE 04/12/2016 9:00pm 04/12/2016 9: 07pm Urine Blood 3+ A NEGATIVE 04/12/2016 9:00pm 04/12/2016 9:07pm Urine WBC 0-1 /HPF 0-5 04/12/2016 9:00pm 04/12/2016 9:24pm Urine RBC 50-200 /HPF H 0-3 04/12/2016 9:00pm 04/12/2016 9:24pm Urine Squamous Epithelial Cells 5-10 04/12/2016 9:00pm 04/12/2016 9 :24pm Urine Bacteria TRACE H NEGATIVE 04/12/2016 9:00pm 04/12/2016 9:24pm Urine Culture Indicated CULT NOT INDICATED 04/12/2016 9:00pm 2016 9:24pm Procedures Procedure Status Date Provider(s) Ct abd & pelvis w/o contrast Completed 03/07/16 Comprehen metabolic panel Completed 03/07/16 Urinalysis auto w/scope Completed 03/07/16 Assay of lipase Completed 03/07/16 Complete cbc w/auto diff wbc Completed 03/07/16 Hydrate iv infusion add-on Completed 03/07/16 Ther/proph/diag inj iv push Completed 03/07/16 Tx/pro/dx inj new drug addon Completed 03/07/16 Tx/pro/dx inj new drug addon Completed 03/07/16 Emergency dept visit Completed 03/07/16 048500"INJECTION, HYDROMORPHONE, UP TO 4 MG" Completed 03/07/16 057690"INJECTION, ONDANSETRON HYDROCHLORIDE, PER 1 MG" Completed 03/07/16 486326"INFUSION, NORMAL SALINE SOLUTION , 1000 CC" Completed 03/07/16 Routine venipuncture Completed 03/09/16 Metabolic panel total ca Completed 03/09/16 Urinalysis auto w/scope Completed 03/09/16 Complete cbc w/auto diff wbc Completed 03/09/16 Ther/proph/diag inj sc/im Completed 03/09/16 Emergency dept visit Completed 03/09/16 [id number]"INJECTION, HYDROMORPHONE, UP TO 4 MG" Completed 03/09/16 Encounters Encounter Location Arrival/Admit Date Discharge/Depart Date Attending Provider Departed Emergency Room [facility] 04/12/16 8:41pm 04/12/16 10: 25pm VEE SCOTT MD Departed Emergency Room [facility] 03/09/16 4:30pm 03/09/16 6: 23pm TAMERA HENNESSY MD Departed Emergency Room [facility] 03/07/16 3:23pm 03/07/16 5: 59pm MELISSA FERREIRA DO Recent Diagnosis
--- OUTSIDE RECORDS SUMMARY | 2016-06-19 18:46 | XMS REPORT | Continuity of Care Document ---
Author Author [facility] Organization [facility] Address Unknown Phone Unavailable Care Team Providers Care Arcade Technician Name Role Phone GERONIMO DOYLE MD Primary Care Physician [phone] Insurance Providers Payer Name Policy Number Subscriber Name Relationship Medicare [id number] Jennifer Singh 20 Self [facility] [id number] Jennifer Singh 20 Self Problems Medical Problems [...] Abdominal pain Unknown Active Hematuria Unknown Active Right sided abdominal pain Unknown Active Hematuria Unknown Active Medications [...] Active Quetiapine Fumarate 2 Tab PO BEDTIME 04/17/14 Active Sulfasalazine 1,000 Mg PO THREE TIMES A DAY Take 2 (500 mg) tablets, by mouth, 2 times a day. 04/17/14 Active Tizanidine HCl 1 BEDTIME 04/17/14 Active Diazepam 1 THREE TIMES A DAY 04/17/14 Active Zonisamide 300 Mg BEDTIME 04/17/14 Active Metronidazole 500 Mg PO Q6H/0300,0900,1500,2100 For ENTERITIS 7 Days Active Hydrocodone/Acetaminophen 1 Tab PO EVERY 4-6 HOURS For PAIN 12 Qty 04/30/14 Discontinued Zaleplon 1 Tab PO BEDTIME 04/25/14 Active Prochlorperazine Maleate 1 Tab PO Every 8 Hours PRN NAUSEA 10 Qty 04/2504/30/14 Discontinued Ciprofloxacin HCl 500 Mg PO TWICE A DAY 10 Qty 04/30/14 Active Hydrocodone/Acetaminophen 1 Tab PO EVERY 4 HOURS PRN PAIN 10 Qty Active Social History Social History Problem Response Recorded Date/Time Chewing Tobacco Status No 03/09/2013 1:23am Hx Substance Use No 04/30/2014 11:15am Hx Alcohol Use No 04/30/2014 11:15am Tobacco Usage none 02/18/2014 7:57pm Query Response Start Date Stop Date Smoking Status Never smoker Hospital Discharge Instructions No hospital discharge instructions. Plan of Care No plan of care. Functional Status Query Response Date Recorded Physical Hygiene Self April 30, 2014 11:15am Disabilities Visual April 30, 2014 11:15am Devices Used Glasses April 30, 2014 11:15am Dressing Self April 30, 2014 11:15am Ambulation Self April 30, 2014 11:15am Diet Self April 30, 2014 11:15am Mental Status Alert Oriented April 30, 2014 11:15am Disabilities Visual April 30, 2014 11:15am Devices Used Glasses April 30, 2014 11:15am Physical Hygiene Self April 30, 2014 11:15am Dressing Self April 30, 2014 11:15am Ambulation Self April 30, 2014 11:15am Diet Self April 30, 2014 11:15am Allergies, Adverse Reactions, Alerts Allergen Type Severity Reaction Status Last Updated dextromethorphan HBr Allergy Severe THROAT SWELLING, HIVES Active 04/30/14 pseudoephedrine HCl Allergy Severe THROAT SWELLING, HIVES Active 04/30/14 Haloperidol Allergy Unknown RASH Active 04/30/14 Codeine Allergy Severe Active 04/30/14 Doxylamine Allergy Severe THROAT SWELLING, HIVES Active 04/30/14 Ketorolac Allergy Unknown RASH Active 04/30/14 Duloxetine Allergy Unknown RASH Active 04/30/14 PLASTIC TAPE Allergy Mild Active 02/21/14 Immunizations Name Given Type Hx Influenza Vaccination Y FALL 2013 Historical Hx Influenza Vaccination Y FALL 2013 Historical Vital Signs Acute Vital Signs Vital Response Date/Time Temperature (Fahrenheit) 97.8 deg F (96.8 - 99.1) Temperature (Calculated Celsius) 36.81318 degrees C (36.0 - 37.3) Pulse Rate (adult) 97 bpm (60 - 100) Respiratory Rate 18 breaths/min (10 - 20) O2 Sat by Pulse Oximetry 98 % (90 - 100) Blood Pressure 115/77 mm Hg Height 5 ft 11 in Weight 227 lb Body Mass Index 31.0 kg/m^2 Results Test Source Date Result Interp. Ref. Range Comments Alanine Aminotransferase (ALT/SGPT) April 30, 2014 12:07pm 30 U/L N 21- 72 Albumin April 30, 2014 12:07pm 4.2 G/DL N 3.5-5.0 Albumin/Globulin Ratio April 30, 2014 12:07pm 1.6 RATIO N 1.1-2.2 Alkaline Phosphatase April 30, 2014 12:07pm 77 U/L N 38-126 Amylase Level April 25, 2014 2:22pm 55 U/L N 30-110 Anion Gap April 30, 2014 12:07pm 12 MEQ/L N 5-15 Aspartate Amino Transf (AST/SGOT) April 30, 2014 12:07pm 24 U/L N 17-59 BUN/Creatinine Ratio April 30, 2014 12:07pm 22 RATIO N 6-26 Basophils # (Auto) April 30, 2014 12:07pm 0.0 T/MM3 N 0-0.2 Basophils (%) (Auto) April 30, 2014 12:07pm 0.5 % N 0-2 Blood Urea Nitrogen April 30, 2014 12:07pm 24.0 MG/DL H 9-20 Calcium Level April 30, 2014 12:07pm 9.9 MG/DL N 8.4-10.2 Calculated Osmolality April 30, 2014 12:07pm 279 MOSM/KG N 261-280 Carbon Dioxide Level April 30, 2014 12:07pm 25 MEQ/L N 22-30 Chemistry Specimen Hemolysis April 30, 2014 12:07pm < 15 0-25 0-25: No Hemolysis.26-70: Slight [...] Phenytoin. Recommend specimen recollection. Chloride Level April 30, 2014 12:07pm 106 MEQ/L N 98-107 Creatinine April 30, 2014 12:07pm 1.1 MG/DL N 0.8-1.5 Eosinophils # (Auto) April 30, 2014 12:07pm 0.1 T/MM3 N 0-0.5 Eosinophils # (Manual) February 22, 2014 12:30am 0.1 T/MM3 N 0-0.5 Eosinophils % (Manual) February 22, 2014 12:30am 1.0 % N 0-4 Eosinophils (%) (Auto) April 30, 2014 12:07pm 1.9 % N 0-4 Globulin April 30, 2014 12:07pm 2.7 G/DL N 2.4-3.6 Glomerular Filtration Rate Calc April 30, 2014 12:07pm 80 - Glucose Level April 30, 2014 12:07pm 93 MG/DL N 75-110 Hematocrit April 30, 2014 12:07pm 40.6 % L 41-53 Hemoglobin April 30, 2014 12:07pm 13.9 GM/DL N 13.5-17.5 Icterus Index April 30, 2014 12:07pm < 2 0-7 Immature Granulocyte # (Auto) April 30, 2014 12:07pm 0.03 T/MM3 N 0.00- 0.03 Immature Granulocyte % (Auto) April 30, 2014 12:07pm 0.5 % N 0.0-0.5 Lab Scanned Report April 27, 2014 10:31am REFERENCE LAB - Lipase April 25, 2014 2:22pm 112 U/L N 23-300 Lymphocytes # (Auto) April 30, 2014 12:07pm 2.2 T/MM3 N 1-4.8 Lymphocytes # (Manual) February 22, 2014 12:30am 3.8 T/MM3 N 1-4.8 Lymphocytes % (Manual) February 22, 2014 12:30am 37.0 % N 23-45 Lymphocytes (%) (Auto) April 30, 2014 12:07pm 37.1 % N 23-45 Mean Corpuscular Hemoglobin April 30, 2014 12:07pm 30.9 UUG N 26-34 Mean Corpuscular Hemoglobin Concent April 30, 2014 12:07pm 34.2 GM/DL N 31-37 Mean Corpuscular Volume April 30, 2014 12:07pm 90.2 UM3 N 80-100 Mean Platelet Volume April 30, 2014 12:07pm 9.3 UM3 L 9.4-12.4 Monocytes # (Auto) April 30, 2014 12:07pm 0.5 T/MM3 N 0-0.8 Monocytes # (Manual) February 22, 2014 12:30am 0.3 T/MM3 N 0-0.8 Monocytes % (Manual) February 22, 2014 12:30am 3.0 % N 0-9.0 Monocytes (%) (Auto) April 30, 2014 12:07pm 8.4 % N 0-9.0 Neutrophils # (Auto) April 30, 2014 12:07pm 3.1 T/MM3 N 1.8-7.7 Neutrophils # (Manual) February 22, 2014 12:30am 6.1 T/MM3 N 1.8-7.7 Neutrophils % (Manual) February 22, 2014 12:30am 59.0 % N 33-66 Neutrophils (%) (Auto) April 30, 2014 12:07pm 51.6 % N 33-66 Platelet Count April 30, 2014 12:07pm 305 T/MM3 N 130-400 Potassium Level April 30, 2014 12:07pm 4.2 MEQ/L N 3.6-5 RDW Standard Deviation April 30, 2014 12:07pm 41.8 FL N 36.9-50.2 Red Blood Count April 30, 2014 12:07pm 4.50 M/MM3 N 4.50-5.90 Sodium Level April 30, 2014 12:07pm 143 MEQ/L N 134-144 Total Bilirubin April 30, 2014 12:07pm 0.50 MG/DL N 0.20-1.30 Total Protein April 30, 2014 12:07pm 6.9 G/DL N 6.3-8.2 Turbidity April 30, 2014 12:07pm < 20 0-20 Urinalysis Comment February 18, 2014 8:30pm Microscopic not ind. - Has specimen been collected/obtained? Y Urine Bacteria April 30, 2014 11:30am 1+ H - Has specimen been collected/obtained? Y Urine Bilirubin April 30, 2014 11:30am Negative - Has specimen been collected/obtained? Y Urine Blood April 30, 2014 11:30am 3+ H - Has specimen been collected/ obtained? Y Urine Collection Type April 30, 2014 11:30am Voided-not cc-midstr - Has specimen been collected/obtained? Y Urine Color April 30, 2014 11:30am Yellow - Has specimen been collected/obtained? Y Urine Culture Indicated February 22, 2014 12:15am Cult reflexed &setup - Has specimen been collected/obtained? Y Urine Glucose (UA) April 30, 2014 11:30am Negative - Has specimen been collected/obtained? Y Urine Ketones April 30, 2014 11:30am Negative - Has specimen been collected/obtained? Y Urine Leukocyte Esterase April 30, 2014 11:30am Trace H - Has specimen been collected/obtained? Y Urine Nitrite April 30, 2014 11:30am Negative - Has specimen been collected/obtained? Y Urine Protein April 30, 2014 11:30am Negative - Has specimen been collected/obtained? Y Urine RBC April 30, 2014 11:30am 10-20 /HPF H - Has specimen been collected/obtained? Y Urine Specific [place] April 30, 2014 11:30am 1.025 - Has specimen been collected/obtained? Y Urine Squamous Epithelial Cells April 30, 2014 11:30am >50 - Has specimen been collected/obtained? Y Urine Turbidity April 30, 2014 11:30am Clear - Has specimen been collected/obtained? Y Urine Urobilinogen April 30, 2014 11:30am 0.2 EU/DL - Has specimen been collected/obtained? Y Urine WBC April 30, 2014 11:30am 3-5 /HPF - Has specimen been collected/obtained? Y Urine pH April 30, 2014 11:30am 6.0 - Has specimen been collected/ obtained? Y Valproic Acid (Depakene) Level September 23, 2009 3:00pm 23 UG/ML L 50-120 White Blood Count April 30, 2014 12:07pm 5.9 T/MM3 N 4.5-11.0 Urine Culture Urine, Clean Catch-Midstream April 20, 2014 10:10pm Mixed Casandra Prob. Contaminants Name: JENNIFER SINGH Unit #: [id number] : 1985 Sex: M Loc / Svc: ED DOS: 04/30/14 Signed Report #: [id number] DIAGNOSTIC IMAGING REPORT TYPE OF EXAM: CT RENAL W/O CONTRAST Dictated By: MOSES SANCHEZ MD Indication: ITS.REASON: RIGHT FLANK PAIN, RIGHT ABD PAIN, HEMATURIA CT RENAL W/O CONTRAST: Comparison: CT abdomen and pelvis dated April 21, 2014 and April 17, 2014 Technique: Axial CT images were performed through the abdomen and pelvis without intravenous contrast. Findings: The lung bases are grossly clear. Respiratory motion artifact. The unenhanced liver is grossly normal. The gallbladder, spleen, pancreas and adrenal glands are normal. The kidneys appear normal without evidence of stone disease or hydronephrosis. No ureteral stones. The appendix is normal. Small and large bowel are grossly unremarkable. No abdominal or pelvic lymphadenopathy. No mesenteric inflammatory change. Bladder, prostate and rectum are normal. No free fluid or free air. Impression: Negative exam. No urolithiasis seen. No acute disease process identified in the abdomen or pelvis. . Procedures Procedure Status Date Provider(s) X-RAY [...] ADDON completed 02/18/14 TX/PRO/DX INJ SAME [employer]UG PROFESSIONAL BUILDER completed 02/18/14 TX/PRO/DX INJ SAME [employer]UG PROFESSIONAL BUILDER completed 02/18/14 EMERGENCY DEPT VISIT completed 02/18/14"INJECTION, [...] METOCLOPRAMIDE HCL, UP TO 10 MG" completed 02/21/14075503"INFUSION, NORMAL SALINE SOLUTION , 1000 CC" completed 01/14/15 [id number]"INFUSION, NORMAL SALINE SOLUTION , 250 CC" completed 02/21/14 [id number]"LOW OSMOLAR CONTRAST MATERIAL, 300-399 MG/ML IODINE C [...] ADDON completed 04/17/14 TX/PRO/DX INJ SAME DRUG PROFESSIONAL BUILDER completed 04/17/14 EMERGENCY DEPT VISIT completed 04/17/14 [id number]"INJECTION, HYDROMORPHONE, UP TO 4 MG" completed 04/17/14 [id number]"INJECTION, HYDROMORPHONE, UP TO 4 MG" completed 04/17/14 [id number]"INJECTION, ONDANSETRON HYDROCHLORIDE, PER 1 MG" completed 04/17/14 [id number]"INFUSION, NORMAL SALINE SOLUTION , 1000 CC" completed [...] ADDON completed 04/20/14 TX/PRO/DX INJ SAME DRUG PROFESSIONAL BUILDER completed 04/20/14 EMERGENCY DEPT VISIT completed 04/20/14 [id number] ITEM OR SERVICE completed 04/20/14 [id number] ITEM OR SERVICE completed 04/20/14 [id number]"INJECTION, PANTOPRAZOLE SODIUM, PER VIAL" completed 04/20/14 DRUG SCR, UR,STAT completed 04/20/14"INJECTION, HYDROMORPHONE, UP TO 4 MG" completed 04/20/14"INJECTION, HYDROMORPHONE, UP TO 4 MG" completed 04/20/14"INJECTION, ONDANSETRON HYDROCHLORIDE, PER 1 MG" completed 04/20/14"INJECTION, FENTANYL CITRATE, 0.1 MG" completed 04/20/14"INFUSION, NORMAL SALINE SOLUTION , 1000 CC" completed 04/20/14"LOW OSMOLAR CONTRAST MATERIAL, 300-399 MG/ML IODINE C completed Encounters Encounter Location Date/Time Departed Emergency Room [facility] 04/30/14 11:05am Departed Emergency Room [facility] 04/25/14 1:09pm Departed Emergency Room [facility] 04/20/14 9:55pm Departed Emergency Room [facility] 04/17/14 1:13pm Departed Emergency Room [facility] 02/21/14 10:18pm Departed Emergency Room [facility] 02/18/14 6:33pm Recent Diagnosis
--- OUTSIDE RECORDS SUMMARY | 2016-06-19 18:47 | XMS REPORT | Continuity of Care Document ---
Author Author Pham Mendoza [facility] Pham Mendoza [facility] Address Unknown Phone Unavailable Care Team Providers Care Channel Lip Stiffener Insoles Name Role Phone [facility] Primary Care Physician [phone] Insurance Providers Guarantor Jennifer Singh Address [address] [place] [address] Payer [facility] Policy Number [id number] Subscriber's Name Jennifer Singh Relationship 01 Self / Same As Patient Payer [facility] Ppo/Hmo Policy Number [id number] Subscriber's Name Jennifer Singh Relationship 01 Self / Same As Patient Group Number [id number] Chief Complaint and Reason for Visit Chief Complaint Flank Pain Reason for Visit [id number] History of colitis [id number] Nausea and vomiting Dehydration Problems Active Problems Medical Problem Onset Date Status Infection kidney Unknown Acute Pyelonephritis acute Unknown Acute Renal colic on left side Unknown Acute Right flank pain Unknown Acute Ureterolithiasis Unknown Acute Ureterolithiasis Unknown Acute Past Problems Medical Problem Onset Date Abdominal pain Unknown Abdominal pain Unknown Dehydration Unknown Diarrhea Unknown Hematuria Unknown Hematuria Unknown Hematuria Unknown [...] Applicable Not Applicable Smoking Status Former smoker 04/16/2016 12:46am Not Applicable Not Applicable Query Response Start Date Stop Date Smoking Status Former smoker Hospital Discharge Instructions No hospital discharge instructions. Plan of Care Discharge Date 04/16/16 2:28am Disposition 01 HOME, SELF-CARE Condition at Discharge Improved/Stable Instructions/Education Provided Urinary Tract Infection in Men (ED) Acute Nausea and Vomiting (ED) Abdominal Pain (ED) Prescriptions See Medication Section Referrals [facility] Address: [address] [place] [address] Additional Instructions/Education Complete antibiotic course. Use Ibuprofen for mild pain and Percocet for severe pain. Use Zofran for nausea. Follow up with Dr. Campos regarding the blood in your urine. No signs of a kidney stone at this time. Functional Status No functional status results. Allergies, Adverse Reactions, Alerts Allergen Type Severity Reaction Status Last Updated Codeine ([id number]) Allergy Intermediate Active 01/10/14 Dextromethorphan ([id number]) Adverse Reaction Mild KEEPS ME WIDE AWAKE Active 08/19/15 Diphenhydramine (T3413534532) Allergy Unknown Active 02/20/16 Doxylamine ([id number]) Adverse Reaction Mild KEEPS ME WIDE AWAKE Active 08/19/15 Haloperidol ([id number]) Allergy Intermediate Change in Vital Signs Active 01/10/14 Morphine ([id number]) Allergy Mild HIVES Active 12/25/15 Pseudoephedrine (Z9743360062) Adverse Reaction Mild KEEPS ME WIDE AWAKE Active 08/19/15 Ketorolac (X6810750726) Allergy Mild Active 01/10/14 Tramadol (T4440521576) Allergy Unknown HIVES PER PT 12/25/15 Active CI Pigment Blue 63 ([id number]) Allergy Unknown HIVES Active 04/16/16 Duloxetine (T0778155042) Allergy Unknown hives Active 08/18/15 Ketorolac Tromethamine (T2193075460) Allergy Unknown HIVES Active 04/16/16 PLASTIC TAPE Adverse Reaction Mild SKIN Active 03/08/14 Immunizations No immunization records. Vital Signs Acute Vital Signs Vital Response Date/Time Blood Pressure 137/87 mm Hg 04/16/2016 1:50am Blood Pressure Mean 103 mm Hg 11/01/2013 11:30am Blood Pressure Mean 104 mm Hg 04/16/2016 1:50am Temperature (Fahrenheit) 98.3 degrees F (96.0 - 99.9) 02/20/2016 7:39pm Temperature (Calculated Celsius) 36.62094 degrees C 02/20/2016 7:39pm Temperature Source Oral 11/01/2013 11:32am Temperature Source Oral 04/16/2016 12:41am Temp 97.0 degrees F (96.0 - 99.9) 11/01/2013 11:39am Temperature (Calculated Celsius) 36.74412 degrees C 11/01/2013 11:39am Pulse Pulse Rate (adult) 100 bpm (60 - 100) 11/01/2013 12:00pm Pulse Rate (adult) 93 bpm (60 - 100) 11/01/2013 11:30am Pulse Rate: ED 109 bpm 04/16/2016 1:50am Respiratory Rate 16 breaths per minute (10 - 20) 04/16/2016 1:50am Respiratory Rate 14 bpm (10 - 20) 11/01/2013 11:30am Height (Feet) 5 ft 04/16/2016 12:41am Height (Inches) 11.0 in. 04/16/2016 12:41am Weight (Pounds) 225.0 lbs 04/16/2016 12:41am Height 5 ft 11 in 04/16/2016 12:41am Weight 225 lb 04/16/2016 12:41am Body Mass Index 31.4 kg/m^2 04/16/2016 12:41am Results Laboratory Results Test Name Result Units [...] Amorphous Sediment 3+ 12/25/2015 4:25pm 12/25/2015 5:24pm White Blood Count 9.1 K/uL 5.0-10.0 04/16/2016 1:10am 04/16/2016 1: 43am Red Blood Count 4.94 M/uL 4.60-5.40 04/16/2016 1:10am 04/16/2016 1: 43am Hemoglobin 13.8 g/dL L 14.0-18.0 04/16/2016 1:10am 04/16/2016 1:43am Hematocrit 41.1 % 40.0-54.0 04/16/2016 1:10am 04/16/2016 1:43am Mean Corpuscular Volume 83.2 fL 80.0-94.0 04/16/2016 1:04/16/2016 1:43am Mean Corpuscular Hemoglobin 27.9 pg 26.0-33.0 04/16/2016 1:2016 1:43am Mean Corpuscular Hemoglobin Concent 33.6 g/dL 31.0-36.0 04/16/2016 1: 04/16/2016 1:43am Red Cell Distribution Width 14.4 % 11.5-14.5 04/16/2016 1:2016 1:43am RDW Standard Deviation 43.0 fL 35.1-43.9 04/16/2016 1:04/16/2016 1 :43am Platelet Count 283 K/uL 130-400 04/16/2016 1:04/16/2016 1:43am Mean Platelet Volume 9.5 fL 7.0-11.0 04/16/2016 1:04/16/2016 1: 43am Neutrophils (%) (Auto) 54.0 % 42.0-75.0 04/16/2016 1:04/16/2016 1: 43am Lymphocytes (%) (Auto) 35.3 % 16.0-44.0 04/16/2016 1:04/16/2016 1: 43am Monocytes (%) (Auto) 8.0 % 2.0-9.0 04/16/2016 1:04/16/2016 1:43am Eosinophils (%) (Auto) 2.0 % 0-7.0 04/16/2016 1:04/16/2016 1:43am Basophils (%) (Auto) 0.4 % 0-1 04/16/2016 1:04/16/2016 1:43am Immature Granulocyte % (Auto) 0.3 % 0-0.5 04/16/2016 1:04/16/2016 1:43am Nucleated Red Blood Cells % 0.0 /100WBC 0-0 04/16/2016 1:2016 1:43am Neutrophils # (Auto) 4.9 K/uL 1.9-8.0 04/16/2016 1:04/16/2016 1: 43am Lymphocytes # (Auto) 3.2 K/uL 0.9-5.2 04/16/2016 1:10am 04/16/2016 1: 43am Monocytes # (Auto) 0.7 K/uL 0.16-1.0 04/16/2016 1:10am 04/16/2016 1: 43am Eosinophils # (Auto) 0.2 K/uL 0-0.8 04/16/2016 1:10am 04/16/2016 1: 43am Basophils # (Auto) 0.0 K/uL 0-0.2 04/16/2016 1:10am 04/16/2016 1:43am Immature Granulocyte # (Auto) 0.03 K/uL 0-0.40 04/16/2016 1:10am 2016 1:43am Nucleated Red Blood Cells # 0.00 K/uL 0.0-0.012 04/16/2016 1:10am 04/16 1:43am Urine Color RED 04/16/2016 12:52am 04/16/2016 1:18am Urine Appearance SL CLOUDY 04/16/2016 12:52am 04/16/2016 1:18am Urine Glucose (UA) NEGATIVE NEGATIVE 04/16/2016 12:52am 04/16/2016 1: 18am Urine Bilirubin NEGATIVE NEGATIVE 04/16/2016 12:52am 04/16/2016 1: 18am Urine Ketones NEGATIVE NEGATIVE 04/16/2016 12:52am 04/16/2016 1:18am Urine Specific [place] 1.010 1.005-1.030 04/16/2016 12:52am 2016 1:18am Urine Occult Blood 3+ H NEGATIVE 04/16/2016 12:52am 04/16/2016 1:18am Urine pH 6.5 4.5-8.0 04/16/2016 12:52am 04/16/2016 1:18am Urine Protein 2+ H NEGATIVE 04/16/2016 12:52am 04/16/2016 1:18am Urine Urobilinogen 0.2 E.U./dL 0.2-1.0 04/16/2016 12:52am 04/16/2016 1: 18am Urine Nitrate NEGATIVE NEGATIVE 04/16/2016 12:52am 04/16/2016 1:18am Urine Leukocyte Esterase TRACE H NEGATIVE 04/16/2016 12:52am 2016 1:18am Urine RBC >100 /hpf H NONE 04/16/2016 12:52am 04/16/2016 1:59am Urine WBC 5-10 /hpf H NONE 04/16/2016 12:52am 04/16/2016 1:59am THIS SPECIMEN MEETS MEDICAL STAFF CRITERIA FOR A URINE CULTURE. A CULTURE HAS BEEN SET. Urine Epithelial Cells 25-50 /lpf 04/16/2016 12:52am 04/16/2016 1: 59am Urine Bacteria 2+ /hpf H NONE 04/16/2016 12:52am 04/16/2016 1:59am THIS SPECIMEN MEETS MEDICAL STAFF CRITERIA FOR A URINE CULTURE. A CULTURE HAS BEEN SET. Urine Mucus 2+ /lpf NONE 04/16/2016 12:52am 04/16/2016 1:59am Random Glucose 92 mg/dL 65-115 04/16/2016 1:10a04/16/2016 2:00am Blood Urea Nitrogen 8 mg/dL 8-25 04/16/2016 1:10a04/16/2016 2:00am Creatinine 0.73 mg/dL L 0.9-1.6 04/16/2016 1:10a04/16/2016 2:00am Glomerular Filtration Rate Calc 127.03 mL/min 04/16/2016 1:10a04/16 2:00am MULTIPLY RESULT BY 1.210 IF THE PATIENT IS -CHADIAN Units are mL/min/1.73 m2 > 60 Normal kidney function 30-59 Moderately decreased kidney function 15-29 Severely decreased kidney function <15 End-stage kidney failure BUN/Creatinine Ratio 11.0 04/16/2016 1:10a04/16/2016 2:00am Sodium Level 139 mEq/L 133-145 04/16/2016 1:10a04/16/2016 2:00am Potassium Level 3.6 mEq/L 3.5-5.1 04/16/2016 1:10a04/16/2016 2:00am Chloride Level 105 mEq/L 98-116 04/16/2016 1:10a04/16/2016 2:00am Carbon Dioxide Level 26 mEq/L 22-34 04/16/2016 1:10a04/16/2016 2: 00am Anion Gap 11.6 6-13 04/16/2016 1:10a04/16/2016 2:00am Calcium Level 9.4 mg/dL 8.2-10.6 04/16/2016 1:04/16/2016 2:00am Total Protein 7.2 gm/dL 6.0-8.4 04/16/2016 1:04/16/2016 2:00am Albumin 4.1 gm/dL 3.2-5.0 04/16/2016 1:04/16/2016 2:00am Globulin 3.1 gm/dL H 2.0-3.0 04/16/2016 1:04/16/2016 2:00am Albumin/Globulin Ratio 1.3 L 1.4-2.4 04/16/2016 1:04/16/2016 2: 00am Total Bilirubin 0.4 mg/dL 0.1-1.3 04/16/2016 1:04/16/2016 2:00am Alkaline Phosphatase 92 U/L 35-125 04/16/2016 1:04/16/2016 2:00am Aspartate Amino Transf (AST/SGOT) 40 U/L 5-40 04/16/2016 1:2016 2:00am Alanine Aminotransferase (ALT/SGPT) 49 U/L H 5-40 04/16/2016 1:10/2016 2:00am Lipase 44 U/L 8-57 04/16/2016 1:04/16/2016 2:00am Bedside Glucose 113 mg/dL 70-120 11/01/2013 7:26am 11/01/2013 7:29am Notify medical staff Microbiology Results Procedure Source Organism/Result Collection Date/Time Result Date/Time Result Status Urine Culture Urine,Clean Catch >100,000 CFU/ML MIXED BODY GABBY AFTER 2 DAYS 02/20/2016 8:01pm 02/22/2016 8:01am Final Procedures Procedure Status Date Provider(s) THER/PROPH/DIAG INJ IV PUSH Completed 03/08/14 JANIE JESUS M.D. TX/PRO/DX INJ NEW DRUG ADDON Completed 03/08/14 JANIE JESUS M.D. THER/PROPH/DIAG INJ IV PUSH Completed 08/17/15 TREMAYNE CHIN D.O. TX/PRO/DX INJ NEW DRUG ADDON Completed 08/17/15 TREMAYNE CHIN D.O. HYDRATE IV INFUSION ADD-ON Completed 08/17/15 GIUSEPPE,TREMAYNE Quintanilla D.O. THER/PROPH/DIAG INJ IV PUSH Completed 09/28/15 JERALD,FROILAN Singh M.D. TX/PRO/DX INJ NEW DRUG ADDON Completed 09/28/15 JERALD,FROILAN Singh M.D. TX/PRO/DX INJ NEW DRUG ADDON Completed 09/28/15 JERALD,FROILAN Singh M.D. HYDRATE IV INFUSION ADD-ON Completed 09/28/15 JERALD,FROILAN Singh M.D. THER/PROPH/DIAG INJ IV PUSH Completed 10/05/15 GIUSEPPE,TREMAYNE Quintanilla D.O. HYDRATE IV INFUSION ADD-ON Completed 10/05/15 GIUSEPPE,TREMAYNE Quintanilla D.O. HYDRATE IV [...] JUANPABLO AUGUSTE M.D. TX/PRO/DX INJ SAME DRUG SOCIAL MEDIA DIRECTOR Completed 12/30/15 JUANPABLO AUGUSTE M.D. HYDRATE IV INFUSION ADD-ON Completed 12/30/15 JUANPABLO AUGUSTE M.D. THER/PROPH/DIAG INJ SC/IM Completed 12/30/15 JUANPABLO AUGUSTE M.D. THER/PROPH/DIAG INJ IV PUSH Completed 02/20/16 FROILAN MARQUES M.D. TX/PRO/DX INJ NEW DRUG ADDON Completed 02/20/16 JERALD,FROILAN Singh M.D. HYDRATE IV INFUSION ADD-ON Completed 02/20/16 FROILAN MARQUES M.D. KNEE ARTHROSCOPY/SURGERY Completed 11/01/13 JOSHUA CARTWRIGHT M.D. Repair of knee cruciate ligaments (procedure) Completed 11/01/13 JOSHUA CARTWRIGHT M.D. Encounters Encounter Location Arrival/Admit Date Discharge/Depart Date Attending Provider Departed Emergency Room [facility] 04/16/16 12:41am 2:28am JUANPABLO AUGUSTE M.D. Departed Emergency Room [facility] 02/20/16 7:38pm 9:25pm FROILAN MARQUES M.D. Departed Emergency Room [facility] 12/30/15 9:03pm 11:30pm JUANPABLO AUGUSTE M.D. Departed Emergency Room [facility] 12/25/15 4:13pm 6:02pm JUANPABLO AUGUSTE M.D. Departed Emergency Room [facility] 10/05/15 4:37pm 6:42pm TREMAYNE CHIN D.O. Departed Emergency Room [facility] 09/28/15 5:43pm 11:02pm FROILAN MARQUES M.D. Departed Emergency Room [facility] 08/17/15 2:20pm 4:45pm TREMAYNE CHIN D.O. Departed Emergency Room [facility] 03/10/15 8:26pm 10:08pm CARLOS ORTA M.D. Departed Emergency Room [facility] 09/25/14 6:47pm 9:00pm CARLOS ORTA M.D. Departed Emergency Room [facility] 03/12/14 7:27pm 8:59pm CARLOS ORTA M.D. Departed Emergency Room [facility] 03/08/14 11:08pm 1:03am JANIE JESUS M.D. Departed Surgical Day Care [facility] 11/01/13 7:10am 12:12pm JOSHUA CARTWRIGHT M.D. Recent Diagnosis
--- OUTSIDE RECORDS SUMMARY | 2016-06-19 18:47 | XMS REPORT | Referral Summary ---
Author Author [facility] Organization [facility] Address Unknown Phone Unavailable Care Team Providers Care Sales Planning Manager Name Role Phone No PCP, Pt States Primary Care Physician [phone] Encounter VC Date(s): 03/19/16 - 03/19/16 [facility] [address] [place] [address] Discharge Diagnosis: Left against medical advice Discharge Diagnosis: Abdominal pain in male Discharge Diagnosis: Left paraspinal back pain Discharge Disposition: 01-Home or Self Care Attending Physician: Yared Addison MD Admitting Physician: Yared Addison MD Vital Signs Most recent to 1 oldest [Reference Range]: Temperature Oral 36.5 degC [35.8-37.3 degC] (03/19/16 12:05 PM) Peripheral Pulse 102 bpm Rate [60-100 bpm] *HI* (03/19/16 12:05 PM) Respiratory Rate 20 br/min [14-20 br/min] (03/19/16 12:05 PM) Blood Pressure 141/69 mmHg [90-140/60-90 mmHg] *HI* (03/19/16 12:05 PM) SpO2 100 % (03/19/16 12:05 PM) Problem List Condition Effective Dates Status Health Status Informant Abdominal Resolved pain(Confirmed) Abdominal 08/30/13 Active pain(Confirmed) Abdominal Resolved pain(Confirmed) Abdominal pain of Active unknown etiology(Confirmed) Medication Active overdose(Confirmed) Acute Active pain(Confirmed) [place] 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) Anxiety(Confirmed) Active patient [place] III: Active patient Asthma(Confirmed) At risk for Active injury(Confirmed)1 Benign Active hematuria(Confirmed) Benign Active hematuria(Confirmed) Bipolar(Confirmed) Active patient Bipolar disorder, Active most recent episode depressed(Confirmed) [place] I: Bipolar Active disease, by hx(Confirmed) [place] III: Crohn Active disease(Confirmed) Depression(Confirmed Active patient ) Abdominal pain, Active chronic, generalized(Confirme d) Tachycardia(Confirme Active patient d) Hematuria(Confirmed) 08/30/13 Active Intractable nausea Active and vomiting(Confirmed) [place] III: Active patient Hypertension(Confirm ed) Ineffective coping Active (individual)(Confirm ed)2 [place] I: Active patient Insomnia(Confirmed) Kidney Active patient [...] caps, 0 Refill(s), Indication: depression/ anxiety, Pharmacy: [facility] [place], 2 caps Oral Daily [...] tabs, 0 Refill(s), Indication: mood stabil/sleep/anxiety, Pharmacy: [facility] Start Date: 05/17/15 Status: Ordered Viberzi 100 mg oral tablet 100 mg 1 tabs, Oral, BID, with food, 0 Refill(s) Start Date: 08/20/15 Status: Ordered Results Hematology Most recent to 1 oldest [Reference Range]: WBC [4.8-10.8 4.7 10*3/uL 10*3/uL] *LOW* (03/19/16 10:43 AM) RBC [4.60-6.20] 4.99 (03/19/16 10:43 AM) Hgb [14.0-18.0 14.0 gm/dL gm/dL] (03/19/16 10:43 AM) Hct [42.0-52.0 %] 42.3 % (03/19/16 10:43 AM) MCV [82.0-99.0 fL] 84.8 fL (03/19/16 10:43 AM) MCH [27.0-32.0 pg] 28.1 pg (03/19/16 10:43 AM) MCHC [32.0-36.0 33.1 gm/dL gm/dL] (03/19/16 10:43 AM) RDW [11.5-14.5 %] 14.2 % (03/19/16 10:43 AM) Platelet [150-400 318 10*3/uL 10*3/uL] (03/19/16 10:43 AM) MPV [9.4-12.3 fL] 9.7 fL (03/19/16 10:43 AM) Immature 0.0 % Granulocytes (03/19/16:43 AM) [0.0-1.0 %] Neutrophils [51-75 37 % %] *LOW* (03/19/16:43 AM) Lymphocytes [20-46 54 % %] *HI* (03/19/16 10:43 AM) Monocytes [4-11 %] 6 % (03/19/16 10:43 AM) Eosinophils [0-4 %] 3 % (03/19/16 10:43 AM) Basophils [0-2 %] 1 % (03/19/16 10:43 AM) Neutro Absolute 1.73 [1.90-7.00] *LOW* (03/19/16 10:43 AM) Lymph Absolute 2.50 [0.80-3.30] (03/19/16 10:43 AM) [place] Absolute 0.28 [0.30-1.00] *LOW* (03/19/16 10:43 AM) Eos Absolute 0.12 [0.00-0.50] (03/19/16 10:43 AM) Baso Absolute 0.04 [0.00-0.20] (03/19/16 10:43 AM) Nucleated RBC 0.0 /100 WBC Automated [0 /100 (03/19/16 10:43 AM) WBC] Chemistry Most recent to 1 oldest [Reference Range]: Sodium Lvl [136-144 140 mEq/L mEq/L] (03/19/16 10:43 AM) Potassium Lvl 3.3 mEq/L 1 [3.6-5.1 mEq/L] *LOW* (03/19/16:43 AM) Chloride [99-109 104 mEq/L mEq/L] (03/19/16:43 AM) CO2 [22-32 mEq/L] 28 mEq/L (03/19/16:43 AM) AGAP [3-20] 8 (03/19/16:43 AM) BUN [4-20 mg/dL] 4 mg/dL (03/19/16:43 AM) Glucose Lvl [70-100 112 mg/dL mg/dL] *HI* (03/19/16: AM) Creatinine Lvl 0.97 mg/dL [0.64-1.27 mg/dL] (03/19/16:43 AM) eGFR [>60] >60 2 (03/19/16: AM) Calcium Lvl 9.7 mg/dL [8.6-10.0 mg/dL] (03/19/16:43 AM) Albumin Lvl [3.5-4.8 4.1 gm/dL gm/dL] (03/19/16:43 AM) Total Protein 7.5 gm/dL [6.1-7.9 gm/dL] (03/19/16:43 AM) Globulin [1.9-4.3 3.4 gm/dL gm/dL] (03/19/16:43 AM) ALT [17-63 U/L] 24 U/L (03/19/16:43 AM) AST [15-41 U/L] 31 U/L (03/19/16:43 AM) Alk Phos [26-104 86 U/L U/L] (03/19/16 10:43 AM) Bili Total [0.2-1.2 0.7 mg/dL 3 mg/dL] (03/19/16 10:43 AM) Lipase Lvl [8-48 31 U/L U/L] (03/19/16 10:43 AM) 1Result Comment: Hemolyzed specimen. The following tests may be affected: ALT, AST, Potassium and Total Bilirubin. 2Result Comment: Multiply eGFR results by 1.21 for race. 3Result Comment: Naproxen, specifically the metabolite O-desmethylnaproxen, may cause spurious elevation in Total Bilirubin levels. Urinalysis Most recent to 1 oldest [Reference Range]: UA Color Yellow (03/19/16 10:43 AM) UA Appear Sl Cloudy (03/19/16 10:43 AM) UA pH [5.0-8.0] 5.0 (03/19/16 10:43 AM) UA Leuk Est Trace [Negative] *ABN* (03/19/16 10:43 AM) UA Nitrite Negative [Negative] (03/19/16 10:43 AM) UA Protein Negative [Negative] (03/19/16 10:43 AM) UA Glucose Negative [Negative] (03/19/16 10:43 AM) UA Ketones Negative [Negative] (03/19/16 10:43 AM) UA Urobilinogen Negative [<1.0] (03/19/16 10:43 AM) UA Bili [Negative] Negative (03/19/16 10:43 AM) UA Blood [Negative] Pos 3+ *ABN* (03/19/16 10:43 AM) UA Spec Grav 1.020 [1.003-1.030] (03/19/16 10:43 AM) Type Catheter (03/19/16 10:43 AM) UA WBC [0-4] 0-2 (03/19/16 10:43 AM) UA RBC [0-2 /HPF] >50 /HPF *ABN* (03/19/16 10:43 AM) Epithelial Cells 5-10 (03/19/16 10:43 AM) UA Bacteria Occasional *ABN* (03/19/16 10:43 AM) UA Mucous Present (03/19/16 10:43 AM) Immunizations Given and Recorded Vaccine Date [...]
--- OUTSIDE RECORDS SUMMARY | 2016-06-19 18:49 | XMS REPORT ---
Author Author [facility], [facility] - Organization Unknown Address Unknown Phone [...] not been performed. Results LAB--URINE TESTS from 09/01/2012 6:44 PMAppearance Clear Bilirubin Negative (Negative ) Blood Pos 3+ A (Negative ) Color Yellow Glucose Negative (Negative ) Ketones, Urine Negative (Negative ) Leukocytes Esterase Negative (Negative ) Nitrites Negative (Negative ) pH, Urine 6.5 (5.0-8.0 ) Protein Negative (Negative ) Specific [place] 1.022 (1.003-1.030 ) Collection Type: Clean Catch Urobilinogen Negative mg/dL (-<1.0 mg/dL) Bacteria Occasional A Epithelial Cells 0-2 /HPF RBC 10-20 /HPF A (0-2 /HPF) WBC 2-5 /HPF (0-4 /HPF)
[2016-06-19] MEDS ORDERED: ONDANSETRON ODT 4 MG TAB PO ONE (19:00)
--- OUTSIDE RECORDS SUMMARY | 2016-06-19 19:13 | XMS REPORT ---
Author Author [facility], [facility] - Organization Unknown Address Unknown Phone Unavailable [...] Blood Pos 3+ A (Negative ) Color [place] A Glucose Negative (Negative ) Ketones, Urine Pos 2+ A (Negative ) Leukocytes Esterase Negative (Negative ) Nitrites Negative (Negative ) pH, Urine 7.0 (5.0-8.0 ) Protein Pos 1+ A (Negative ) Specific [place] 1.027 (1.003-1.030 ) Collection Type: Clean Catch Urobilinogen Negative mg/dL (-<1.0 mg/dL) Bacteria Numerous A Crystals Ca Ox Crystals Amorphous Epithelial Cells 0-2 /HPF Mucus Present RBC >50 /HPF A (0-2 /HPF) WBC 5-10 /HPF A (0-4 /HPF)
--- OUTSIDE RECORDS SUMMARY | 2016-06-19 19:14 | XMS REPORT ---
Author Author [place], [facility] - Organization Unknown Address Unknown Phone [...] (5.0-8.0 ) Protein Negative (Negative ) Specific [place] 1.011 (1.003-1.030 ) Collection Type: Clean Catch Urobilinogen Negative mg/dL (-<1.0 mg/dL)
--- OUTSIDE RECORDS SUMMARY | 2016-06-19 19:15 | XMS REPORT | Continuity of Care Document ---
Author Author [facility] Organization [facility] Address Unknown Phone Unavailable Care Team Providers Care Digital Strategist Senior Manager Name Role Phone GERONIMO DOYLE MD Primary Care Physician [phone] Insurance Providers Payer Name Policy Number Subscriber Name Relationship Medicare [id number] Jennifer Singh Self [facility] [id number] Jennifer Singh 20 Self Advance Directives Directive [...] F (96.8 - 99.1) Temperature (Calculated Celsius) 36.29040 degrees C (36.0 - 37.3) Pulse Rate [...] Report September 26, 2009 9:28am REFERENCE LAB [id number] - Lipase April 20, 2014 10:55pm 136 [...] Has specimen been collected/obtained? Y Urine Specific [place] April 20, 2014 10:10pm >=1.030 H - [...] Prob. Contaminants Name: JENNIFER SINGH Unit #: [id number] : 1985 Sex: M Loc / Svc: ED DOS: 04/17/14 Signed Report #: [id number] DIAGNOSTIC IMAGING REPORT TYPE OF EXAM: CT [...] ADDON completed 02/18/14 TX/PRO/DX INJ SAME DRUG CAREER GUIDANCE TECHNICIAN completed 02/18/14 TX/PRO/DX INJ SAME DRUG CAREER GUIDANCE TECHNICIAN completed 02/18/14 EMERGENCY DEPT VISIT completed 02/18/14"INJECTION, [...] Encounters Encounter Location Date/Time Registered Emergency Room [facility] 04/20/14 9:55pm Departed Emergency Room [facility] 04/17/14 1:13pm Departed Emergency Room [facility] 02/21/14 10:18pm Departed Emergency Room [facility] 02/18/14 6:33pm Recent Diagnosis
--- OUTSIDE RECORDS SUMMARY | 2016-06-19 19:16 | XMS REPORT | Continuity of Care Document ---
Author Author [facility] Organization [facility] Address Unknown Phone Unavailable Care Team Providers Care Electronic Organ Mechanic Name Role Phone GERONIMO DOYLE M.D. Primary Care Physician [phone] Insurance Providers Payer Name Policy Number Subscriber Name Relationship s Medicare [id number] Jennifer Singh Self / Same As Patient [facility] [id number] Jennifer Singh Self / Same As Patient [...] 2013 8:55am Memory Description Short term intact nursing home intact November 01, 2013 8:55am Allergies, Adverse [...] - 99.9) 11/01/2013 11:39am Temperature (Calculated Celsius) 36.24630 degrees C 11/01/2013 11:39am Height 5 ft [...] NONE SOURCE: URINE, CLEAN CATCH Urine Specific [place] March 19, 2013 10:27pm 1.015 1.005-1.030 SOURCE: [...] SPICER,ANABEL Hanley M.D. [place]/PRO/DX INJ SAME DRUG IDENTITY MANAGEMENT DEVELOPER completed 03/19/13 SPICER,ANABEL Hanley M.D. HYDRATE IV INFUSION ADD-ON completed 03/19/13 SPICER,ANABEL Hanley M.D. Encounters Encounter Location Date/Time Departed Emergency Room [facility] 03/19/13 10:08pm Departed Emergency Room [facility] 02/20/13 8:00pm
--- OUTSIDE RECORDS SUMMARY | 2016-06-19 19:19 | XMS REPORT ---
Author Author [place] - Organization Unknown Address Unknown Phone Unavailable [...]
[2016-06-19 19:24] LABS: BASOPHILS % (AUTO) 0.3 % (0-2); EOSINOPHILS # (AUTO) 0.2 T/MM3 (0-0.5); EOSINOPHILS % (AUTO) 2.2 % (0-4); HCT - HEMATOCRIT 41.1 % (41-53); HGB - HEMOGLOBIN 13.5 GM/DL (13.5-17.5); IMMATURE GRANULOCYTE # (AUTO) 0.01 T/MM3 (0.00-0.03); IMMATURE GRANULOCYTE % (AUTO) 0.1 % (0.0-0.5); LYMPHOCYTES # (AUTO) 2.4 T/MM3 (1-4.8); LYMPHOCYTES % (AUTO) 32.6 % (23-45); MEAN CORPUSCULAR HGB 27.3 UUG (26-34); MEAN CORPUSCULAR HGB CONC(MCHC 32.8 GM/DL (31-37); MEAN CORPUSCULAR VOLUME 83.2 UM3 (80-100); MONOCYTES # (AUTO) 0.5 T/MM3 (0-0.8); MONOCYTES % (AUTO) 6.4 % (0-9.0); NEUTROPHILS #(AUTO)-ABSOLUTE 4.2 T/MM3 (1.8-7.7); NEUTROPHILS % (AUTO) 58.4 % (33-66); RED BLOOD COUNT 4.94 M/MM3 (4.50-5.90); WBC - WHITE BLOOD COUNT 7.2 T/MM3 (4.5-11.0)
--- OUTSIDE RECORDS SUMMARY | 2016-06-19 19:24 | XMS REPORT | Continuity of Care Document ---
Author Author [facility] Organization [facility] Address Unknown Phone Unavailable Care Team Providers Care Investment Counselor Name Role Phone GERONIMO DOYLE MD Primary Care Physician [phone] Insurance Providers Payer Name Policy Number Subscriber Name Relationship Medicare [id number] Jennifer Singh 20 Self [facility] [id number] Jennifer Singh 20 Self Advance Directives Directive [...] F (96.8 - 99.1) Temperature (Calculated Celsius) 37.91647 degrees C (36.0 - 37.3) Pulse Rate [...] Has specimen been collected/obtained? Y Urine Specific [facility] February 18, 2014 8:30pm 1.020 - Has [...] Report September 26, 2009 9:28am REFERENCE LAB [id number] - Turbidity February 18, 2014 8:18pm < [...] Encounters Encounter Location Date/Time Departed Emergency Room [facility] 02/18/14 6:33pm Recent Diagnosis
--- OUTSIDE RECORDS SUMMARY | 2016-06-19 19:24 | XMS REPORT ---
Author Author [place], [facility] - Organization Unknown Address Unknown [...] (5.0-8.0 ) Protein Negative (Negative ) Specific [place] 1.022 (1.003-1.030 ) Collection Type: Clean Catch Urobilinogen 1.0 mg/dL (-<1.0 mg/dL)
--- OUTSIDE RECORDS SUMMARY | 2016-06-19 19:24 | XMS REPORT | Continuity of Care Document ---
Author Author [facility] Organization [facility] Address Unknown Phone Unavailable Care Team Providers Care Poker Dealer Name Role Phone GERONIMO DOYLE M.D. Primary Care Physician [phone] Insurance Providers Payer Name Policy Number Subscriber Name Relationship [employer] [id number] Jennifer Singh Self / Same As Patient [facility] [id number] Jennifer Singh Self / Same As Patient [...] your doctor in 2-[address] Calabrese for an appointment. 2. Use Tylenol or [...] F (96.0 - 99.9) Temperature (Calculated Celsius) 36.34114 degrees C Temperature Source Oral Temperature Source Oral Temp 97.0 degrees F (96.0 - 99.9) Temperature (Calculated Celsius) 36.59817 degrees C Pulse Pulse Rate (adult) 100 [...] NONE SOURCE: URINE, CLEAN CATCH Urine Specific [place] March 12, 2014 7:50pm 1.025 1.005-1.030 SOURCE: [...] ANABEL SPICER M.D. TX/PRO/DX INJ SAME DRUG FINANCIAL SERVICES ASSOCIATE completed 03/19/13 ANABEL SPICER M.D. HYDRATE IV INFUSION ADD-ON completed 03/19/13 ANABEL SPICER M.D. KNEE ARTHROSCOPY/SURGERY completed 11/01/13 JOSHUA CARTWRIGHT M.D. Repair of knee cruciate ligaments (procedure) completed 11/01/13 JOSHUA CARTWRIGHT M.D. Encounters Encounter Location Date/Time Departed Emergency Room [facility] 03/12/14 7:27pm Departed Emergency Room [facility] 03/08/14 11:08pm Departed Emergency Room [facility] 03/19/13 10:08pm Recent Diagnosis
--- OUTSIDE RECORDS SUMMARY | 2016-06-19 19:25 | XMS REPORT | Continuity of Care Document ---
Author Author [facility] Organization [facility] Address Unknown Phone Unavailable Care Team Providers Care Superintendent Name Role Phone GERONIMO DOYLE MD Primary Care Physician [phone] Insurance Providers Payer Name Policy Number Subscriber Name Relationship Medicare [id number] Jennifer Singh 20 Self [facility] [id number] Jennifer Singh 20 Self Problems Medical Problems [...] F (96.8 - 99.1) Temperature (Calculated Celsius) 36.57103 degrees C (36.0 - 37.3) Pulse Rate [...] Report September 26, 2009 9:28am REFERENCE LAB [id number] - Lipase April 17, 2014 3:13pm 132 [...] Has specimen been collected/obtained? Y Urine Specific [place] April 17, 2014 1:50pm 1.010 L - [...] Prob. Contaminants Name: JENNIFER SINGH Unit #: [id number] : 1985 Sex: M Loc / Svc: ED DOS: 04/17/14 Signed Report #: [id number] DIAGNOSTIC IMAGING REPORT TYPE OF EXAM: CT [...] ADDON completed 02/18/14 TX/PRO/DX INJ SAME DRUG TELE RN completed 02/18/14 TX/PRO/DX INJ SAME DRUG TELE RN completed 02/18/14 EMERGENCY DEPT VISIT completed 02/18/14 [id number]"INJECTION, PANTOPRAZOLE SODIUM, PER VIAL" completed 02/18/14"INJECTION, HYDROMORPHONE, [...] Encounters Encounter Location Date/Time Departed Emergency Room [facility] 04/17/14 1:13pm Departed Emergency Room [facility] 02/21/14 10:18pm Departed Emergency Room [facility] 02/18/14 6:33pm Recent Diagnosis
--- OUTSIDE RECORDS SUMMARY | 2016-06-19 19:28 | XMS REPORT ---
Author Author [place], [facility] - Organization Unknown Address Unknown Phone [...] (5.0-8.0 ) Protein Negative (Negative ) Specific [place] 1.012 (1.003-1.030 ) Collection Type: Clean Catch Urobilinogen 1.0 mg/dL (-<1.0 mg/dL) RBC 0-2 /HPF (0-2 /HPF)
--- OUTSIDE RECORDS SUMMARY | 2016-06-19 19:28 | XMS REPORT | CCD ---
Author Author [place] - Organization Unknown Address Unknown Phone Unavailable [...] ) Protein Negative (Negative ) Specific [place] 1.008 (1.003-1.030 ) Collection Type: Clean Catch Urobilinogen 1.0 mg/dL (-<1.0 mg/dL) Bacteria Rare Epithelial Cells 2-5 /HPF Mucus Present RBC 0-2 /HPF (0-2 /HPF) WBC 2-5 /HPF (0-4 /HPF)
--- OUTSIDE RECORDS SUMMARY | 2016-06-19 19:29 | XMS REPORT | Continuity of Care Document ---
Author Author [facility] Organization [facility] Address Unknown Phone Unavailable Care Team Providers Care Bulk Coolers Installer Name Role Phone GERONIMO DOYLE M.D. Primary Care Physician [phone] Insurance Providers Payer Name Policy Number Subscriber Name Relationship s Medicare [id number] Jennifer Singh Self / Same As Patient [facility] [id number] Jennifer Singh Self / Same As Patient Chief Complaint and Reason for Visit Chief Complaint Flank Pain Reason for Visit [id number] Problems Medical Problems Problem Onset Date Status [...] F (96.0 - 99.9) Temperature (Calculated Celsius) 36.23641 degrees C Temperature Source Oral Temperature Source Oral Temp 97.0 degrees F (96.0 - 99.9) Temperature (Calculated Celsius) 36.50821 degrees C Pulse Pulse Rate (adult) 100 [...] NONE SOURCE: URINE, CLEAN CATCH Urine Specific [place] March 08, 2014 11:30pm 1.015 1.005-1.030 SOURCE: [...] ANABEL SPICER M.D. TX/PRO/DX INJ SAME DRUG MFT completed 03/19/13 ANABEL SPICER M.D. HYDRATE IV INFUSION ADD-ON completed 03/19/13 ANABEL SPICER M.D. KNEE ARTHROSCOPY/SURGERY completed 11/01/13 JOSHUA CRATWRIGHT M.D. Repair of knee cruciate ligaments (procedure) completed 11/01/13 JOSHUA CARTWRIGHT M.D. Encounters Encounter Location Date/Time Departed Emergency Room [facility] 03/08/14 11:08pm Departed Emergency Room [facility] 03/19/13 10:08pm Recent Diagnosis
--- OUTSIDE RECORDS SUMMARY | 2016-06-19 19:30 | XMS REPORT | Continuity of Care Document ---
Author Author [facility] Organization [facility] Address Unknown Phone Unavailable Care Team Providers Care Form Press Operator Name Role Phone GERONIMO DOYLE MD Primary Care Physician [phone] Insurance Providers Payer Name Policy Number Subscriber Name Relationship Medicare [id number] Jennifer Singh Self [facility] [id number] Jennifer Singh Self Advance Directives Directive Response [...] F (96.8 - 99.1) Temperature (Calculated Celsius) 36.28272 degrees C (36.0 - 37.3) Pulse Rate [...] Report September 26, 2009 9:28am REFERENCE LAB [id number] - Lipase April 25, 2014 2:22pm 112 [...] Has specimen been collected/obtained? Y Urine Specific [place] April 25, 2014 1:30pm 1.025 - Has [...] Prob. Contaminants Name: JENNIFER SINGH Unit #: [id number] : 1985 Sex: M Loc / Svc: ED DOS: 04/25/14 Signed Report #: [id number] DIAGNOSTIC IMAGING REPORT TYPE OF EXAM: ABDOMEN [...] ADDON completed 02/18/14 TX/PRO/DX INJ SAME DRUG SCISSORS GRINDER completed 02/18/14 TX/PRO/DX INJ SAME DRUG SCISSORS GRINDER completed 02/18/14 EMERGENCY DEPT VISIT completed 02/18/14"INJECTION, PANTOPRAZOLE SODIUM, PER VIAL" completed 02/18/14690620"INJECTION, HYDROMORPHONE, UP TO 4 MG" completed 02/18/14"INJECTION, [...] NORMAL SALINE SOLUTION , 1000 CC" completed 02/21/14794757"INFUSION, NORMAL SALINE SOLUTION , 250 CC" completed [...] ADDON completed 04/17/14 TX/PRO/DX INJ SAME DRUG SCISSORS GRINDER completed 04/17/14 EMERGENCY DEPT VISIT completed 04/17/14 [id number]"INJECTION, HYDROMORPHONE, UP TO 4 MG" completed 04/17/14 [id number]"INJECTION, HYDROMORPHONE, UP TO 4 MG" completed 04/17/14 [id number]"INJECTION, ONDANSETRON HYDROCHLORIDE, PER 1 MG" completed 04/17/14 [id number]"INFUSION, NORMAL SALINE SOLUTION , 1000 CC" completed [...] ADDON completed 04/20/14 TX/PRO/DX INJ SAME DRUG SCISSORS GRINDER completed 04/20/14 EMERGENCY DEPT VISIT completed 04/20/14 [id number] ITEM OR SERVICE completed 04/20/14 [id number] ITEM OR SERVICE completed 04/20/14 [id number]"INJECTION, PANTOPRAZOLE SODIUM, PER VIAL" completed 04/20/14 DRUG SCR, UR,STAT completed 04/20/14 [id number]"INJECTION, HYDROMORPHONE, UP TO 4 MG" completed 03/13/15 [id number]"INJECTION, HYDROMORPHONE, UP TO 4 MG" completed 04/20/14"INJECTION, ONDANSETRON HYDROCHLORIDE, PER 1 MG" completed 04/20/14"INJECTION, FENTANYL CITRATE, 0.1 MG" completed 04/20/14"INFUSION, NORMAL SALINE SOLUTION , 1000 CC" completed 04/20/14"LOW OSMOLAR CONTRAST MATERIAL, 300-399 MG/ML IODINE C completed Encounters Encounter Location Date/Time Departed Emergency Room [facility] 04/25/14 1:09pm Departed Emergency Room [facility] 04/20/14 9:55pm Departed Emergency Room [facility] 04/17/14 1:13pm Departed Emergency Room [facility] 02/21/14 10:18pm Departed Emergency Room [facility] 02/18/14 6:33pm Recent Diagnosis
--- OUTSIDE RECORDS SUMMARY | 2016-06-19 19:30 | XMS REPORT | Continuity of Care Document ---
Author Author [facility] Organization [facility] Address Unknown Phone Unavailable Care Team Providers Care Special Officer Automat Name Role Phone GERONIMO DOYLE MD Primary Care Physician [phone] Insurance Providers Payer Name Policy Number Subscriber Name Relationship Medicare [id number] Jennifer Singh 20 Self [facility] [id number] Jennifer Singh 20 Self Advance Directives Directive [...] F (96.8 - 99.1) Temperature (Calculated Celsius) 36.68595 degrees C (36.0 - 37.3) Pulse Rate [...] Report September 26, 2009 9:28am REFERENCE LAB [id number] - Lipase February 22, 2014 12:30am 220 [...] Has specimen been collected/obtained? Y Urine Specific [place] February 22, 2014 12:15am 1.020 - Has [...] 2:07am Mixed [place] Prob. Contaminants Name: JENNIFER ISNGH Unit #: [id number] : 1985 Sex: M Loc / Svc: ED DOS: 02/18/14 Signed Report #: [id number] DIAGNOSTIC IMAGING REPORT TYPE OF EXAM: ABDOMEN [...] Encounters Encounter Location Date/Time Departed Emergency Room [facility] 02/21/14 10:18pm Departed Emergency Room [facility] 02/18/14 6:33pm Recent Diagnosis
[2016-06-19 19:31] LABS: ALBUMIN 4.2 G/DL (3.5-5.0); ALBUMIN/GLOBULIN RATIO 1.8 RATIO (1.1-2.2); ALKALINE PHOSPHATASE 91 U/L (38-126); ALT (SGPT) 46 U/L (21-72); ANION GAP 14 MEQ/L (5-15); AST (SGOT) 22 U/L (17-59); BUN/CREATININE RATIO 8 RATIO (6-26); CALCIUM 9.4 MG/DL (8.4-10.2); CHLORIDE 108 MEQ/L (98-107); CO2 - CARBON DIOXIDE 25 MEQ/L (22-30); CREATININE 0.8 MG/DL (0.8-1.5); GLOMERULAR FILTRATION RATE 114; GLUCOSE 119 MG/DL (75-110); LIPASE 112 U/L (23-300); POTASSIUM 3.5 MEQ/L (3.6-5); SODIUM 147 MEQ/L (134-144); TOTAL PROTEIN 6.6 G/DL (6.3-8.2)
--- NOTE | 2016-06-19 19:31 | ERPDOC ---
Departure Disposition Decision Date: June 19, 2016 Disposition Decision Time: 19:54 (JARON SMITH APRN) Disposition: 01 DISCHARGED HOME, SELF-CARE Impression Impression (JARON SMITH APRN) Impression: Primary Impression: Flank pain Additional Impressions: Abdominal pain Abdominal location: right upper quadrant Qualified Codes: R10.11 - Right upper quadrant pain Hematuria Drug-seeking behavior UTI (urinary tract infection) Urinary tract infection type: site unspecified Hematuria presence: with hematuria Qualified Codes: N39.0 - Urinary tract infection, site not specified ; R31.9 - Hematuria, unspecified Condition: Stable Seen By: Mid-level only (JARON SMITH APRN) Referrals: J LUIS ROSARIO (Family) 3 Days Patient Instructions: Abdominal Pain (ED), Acute Nausea and Vomiting (ED) Problems/Meds/Labs Reviewed?: Yes Medications reviewed and manag: Yes (JARON SMITH APRN) Additional Instructions: YOUR LAB WORK IS STABLE WITH NORMAL KIDNEY FUNCTION AND NO EVIDENCE OF ANEMIA . YOUR CT SCAN DID NOT INDICATE ANYTHING ABNORMAL EITHER. NO EVIDENCE OF STONES IN YOUR GALLBLADDER OR YOUR KIDNEYS. THE BLOOD IN YOUR URINE MAY BE DUE TO A MILD URINARY TRACT INFECTION AND WE WILL TREAT YOU WITH ANTIBIOTICS. IT IS VERY IMPORTANT THAT YOU FOLLOW UP WITH YOUR DOCTOR FOR FURTHER EXAMINATION OF THE SOURCE OF YOUR PAIN. Follow up care ordered?: Yes Mental Status: Alert, Oriented (JARON SMITH APRN) Scripts Cephalexin (Keflex) 500 Mg Capsule 1 CAP PO TID for 5 Days, #15 CAP Prov: JARON SMITH APRN 06/19/16 Ondansetron (Zofran Odt) 4 Mg Tab.rapdis 4 MG PO Q6HR for NAUSEA &/OR VOMITING, #10 TAB Oral disintegrating tablet Prov: JARON SMITH APRN 06/19/16 HPI - Abdominal Pain General Chief Complaint: Abdominal Pain Stated Complaint: STOMACH & BACK PAIN,BLOOD IN URINE,VOMITING Time Seen by Provider: 18:23 Source: patient History/Exam Limitations: no limitations (JARON SMITH APRN) Time Seen by Provider: 18:23 (MELISSA FERREIRA DO) HPI - Abdominal Pain Initial Comments Patient presents to the ED accompanied by his brother . He is observed ambulating past the nurses station with a steady upright gait. Patient reports severe right upper quad/right flank pain that he states started in the past 24 hours . States has had this pain before but it has been much better for almost 2 weeks until late last night/early today. Patient is laying stretched out in bed with his feet crossed at the ankles and texting when I enter the room. History is obtained and physical exam is done. Patient demonstrates pain with palpation to the right upper quadrant and epigastric area. Patient is able to immediately return to a resting state without evidence of pain when I stop palpating. I did leave the room momentarily to return to have patient laying on his side, holding his phone up in the air, texting and does not appear to be uncomfortable. Patient has had repeated visits to numerous area ER's for complaints of abdominal pain, flank pain , hematuria or blood in his stools. Patient does have documented pathology including prior gastritis and hematemesis and has had numerous EGD and colonoscopy's . Patient is known to me from his visits to [facility] where I have been his provider for similar abdominal complaints. Patient has been dx with acute colitis without evidence of IBD Patient also has hx of migraines, chronic back pain since age 12, bipolar depression, anxiety, hypertension, suicidal ideation and attempts and rectal ulcers on 2 occasions in 2009 and 2015 . Patient also has hx of resting tachycardia. On this evenins visit , Patient was asked on two occasions when he last received medical care for his pain. He told me each time, 'several months ago" I asked him if he has had recent narcotic prescriptions for pain control and he said "not for a long time" Patient was last seen in a [place] facility on June 14 and June 17 , had lab work done each time and on June 17 had a renal ultrasound which was negative for abnormalities. With each visit, patient had significant hematuria, often with 3+ - 4+ blood and >100 RBC without evidence of kidney stones. At one prior ER visit at [place], I recall patient provided a urine sample that did show pronounced hematuria only to agree to have a straight cath done for a repeat specimen which was without blood or evidence of infection. At that time, patient stated his pain was all better and he needed to leave. On another ER visit , patient told me he had not had any narcotic pain meds however when I requested a UDS the patient refused and left AMA. After my history and exam, I did explain to patient that it was my intent to make sure that there was nothing serious going on and that I would treat his pain. I did confront patient that I had taken care of him in the past in [place] and that I recall I had issues with him being deceitful with information and that I felt that might be the issue this evening since he told me it had been months since he was seen by a medical professional or had lab drawn when I know he was seen twice this week. I assured patient that I would provide pain control however , based on the results of his scan and repeat lab work, I would not be prescribing narcotic pain medication for him . Patient states "okay" Occurred At: home Onset: Rapid Duration: 12-24 hrs Pain Scale: Now & Worst: 10/10 Quality: sharpness, stabbing Location: RUQ, right flank Radiation: flank 1 - pain with palpation 2 - pain with palpation Activities at Onset: none Modifying Factors: IMPROVES WITH: rest, WORSE WITH: movement, palpation, urinating, vomiting, walking Associated Symptoms: nausea/vomiting, DENIES: chest pain, fever/chills Hx of Similar Symptoms: Yes (JARON SMITH APRN) Allergies: Coded Allergies: codeine (Verified Allergy, Severe, 04/12/16) dextromethorphan HBr (Verified Allergy, Severe, THROAT SWELLING, HIVES, 04/12/16) doxylamine (Verified Allergy, Severe, THROAT SWELLING, HIVES, 04/12/16) pseudoephedrine HCl (Verified Allergy, Severe, THROAT SWELLING, HIVES, 04/12) diphenhydramine (Verified Allergy, Intermediate, HIVES, 06/19/16) duloxetine (Verified Allergy, Unknown, RASH, 04/12/16) haloperidol (Verified Allergy, Unknown, RASH, 04/12/16) ketorolac (Verified Allergy, Unknown, RASH, 04/12/16) tramadol (Verified Allergy, Unknown, 04/12/16) Uncoded Allergies: PLASTIC TAPE (Allergy, Mild, 02/21/14) Past History Past Medical History Hx Echocardiogram: No GI: crohn's Male: kidney stones Neurological: headaches Psychological: anxiety, depression, other (JARON SMITH APRN) Surgical History General: colonoscopy Joint: knee (JARON SMITH APRN) Vaccines Hx Influenza Vaccination: Yes (FALL 2013) (JARON SMITH E JANA) Social History Does patient use chewing tobac: No Second Hand Exposure: No Substance Use Type: does not use Alcohol Intake: none Current Occupational Status: unemployed, disabled (JARON SMITH E MORTG[employer] OPERATIONS MANAGER) Review of Systems Constitutional Constitutional: appetite decrease, see HPI, DENIES: chills, dizziness, fever, weakness (JARON SMITH E MORTG[employer] OPERATIONS MANAGER) Eyes General: DENIES: burning, itching Lids/Accessories: DENIES: erythema, swelling (JARON SMITH E MORTG[employer] OPERATIONS MANAGER) ENMT Ears: DENIES: pain Hearing: DENIES: tinnitus Balance: DENIES: vertigo Mouth/Throat: DENIES: scratchy throat, sore throat (JARON SMITH E M[employer] OPERATIONS MANAGER) Pulmonary Respiratory: DENIES: cough, dyspnea, pleuritic chest pain (JARON SMITH MORTG[employer] OPERATIONS MANAGER) GI Upper Abdomen: nausea, pain, see HPI, vomiting Lower Abdomen: pain, DENIES: blood in stool, constipation, diarrhea, painful BM (JARON SMITH E MORTG[employer] OPERATIONS MANAGER) General: dysuria, hematuria, see HPI Male: DENIES: testicular pain (JARON SMITH APRN) Musculoskeletal General: DENIES: cramps, joint pain (JARON SMITH E M[employer] OPERATIONS MANAGER) Integumentary Skin: DENIES: itching, rash (JARON SMITH E M[employer] OPERATIONS MANAGER) Neurological General: DENIES: headache, numbness, weakness (JARON SMITH E JANA) Hematologic/Lymphatic Hematologic/Lymphatic: DENIES: anemia, easy bruising (JARON SMITH E M[employer] OPERATIONS MANAGER) Allergic/Immunological Allergic/Immunoligical: DENIES: sneezing (JARON SMITH E M[employer] OPERATIONS MANAGER) All other Systems All Other Systems: Reviewed and Negative (JARON SMITH E JANA) Physical Exam General General Nourishment: well nourished, well developed, appears stated age, no acute distress, adult (JARON SMITH E M[employer] OPERATIONS MANAGER) Vitals and Pain First Documented Vital Signs Date Time Temp Pulse Resp B/P Pulse Ox O2 Delivery O2 Flow Rate FiO2 06/19/16 18:25 97.8 109 18 140/91 100 Room Air (MELISSA FERREIRA DO) Vitals and Pain Weight: Kilograms: 96.300 Height (feet): 6 Height (inches): 0 Triage Pain Scale: (JARON SMITH APRN) Normal Exams: Head: Normocephalic w/o trauma Eyes: Pupils are PERRLA w/ EOMI, No scleral icterus, irritation, or foreign bodies noted ENMT: No facial trauma, nasal exudates, pharyngeal erythema, or exudates are noted Dental: No fractured, loose, or missing teeth noted Chest/Resp: Clear all [place], with good airflow, and symmetry bilaterally CV: Regular rate and rhythm, without murmur or gallop, Pulses 2+ all extremities, capillary refill, <2 seconds all ext., no pedal edema noted Lymphatic: No lymphadenopathy, or lymphedema noted Musculoskeletal: No tenderness, or deformity noted, good range of motion, all extremities Integumentary: No rashes, hives, or bruising noted, hair and nails, without abnormality Neurologic: Patient is alert, and oriented, cranial nerves, motor/sensory/ cerebellar, exams w/o gross deficits, to observation Psychiatric: Patient exhibits, appropriate attention, emotion and affect (JARON SMITH APRN) Abdomen (brief) Abdominal Brief: FOUND: bowel normo active x4, soft, tender (right UQ; epigastric area and flank ) (JARON SMITH APRN) Differential Diagnoses Considering: Appendicitis, Aortic Dissection, Biliary Colic, Bowel Obstruction , Cholecystitis, Constipation, Crohn's, Gastroenteritis, GERD, GI Bleed, Hepatitis, IBS, Pancreatitis, Pyelonephritis, Renal Colic, Testicular Torsion, Ulcerative Colitis, UTI, Volvulus, Other (drug seeking behavior, ) (JARON SMITH APRN) Progress Results/Orders Orders Procedure Category Date Status Time UA, LAB 06/19/16 Complete Dip&Micro(Complete) & 18:33 Ondansetron Odt PHA 06/19/16 Complete (Zofran Odt) 19:00 Cbc W/Auto LAB 06/19/16 Complete Diff-Reflex Manual Cmp - Comprehensive LAB 06/19/16 Complete Metabolic Lipase LAB 06/19/[address] Renal W/O Contrast CT 06/19/16 Taken 18:52 Acetaminophen PHA 06/19/16 Complete (Tylenol Extra 20:00 (MELISSA FERREIRA DO) Lab Results Laboratory Tests Test 06/19/16 18:33 06/19/16 19:10 Urine Collection Type Voided-not cc-midstr Urine Color Yellow Urine Turbidity Cloudy Urine pH 6.0 Urine Specific [place] 1.025 Urine Protein Negative Urine Glucose (UA) Negative Urine Ketones Negative Urine Blood 3+ Urine Nitrite Negative Urine Bilirubin Negative Urine Urobilinogen 1.0EU/DL Urine Leukocyte Esterase Trace Urine RBC 50-200/HPF Urine WBC 10-20/HPF Urine Squamous Epithelial Cells 10-20 Urine Bacteria 1+ Urine Mucus Present Urine Culture Indicated Cult not indicated White Blood Count 7.2T/MM3 Red Blood Count 4.94M/MM3 Hemoglobin 13.5GM/DL Hematocrit 41.1% Mean Corpuscular Volume 83.2UM3 Mean Corpuscular Hemoglobin 27.3UUG Mean Corpuscular Hemoglobin Concent 32.8GM/DL RDW Standard Deviation 46.2FL Platelet Count 263T/MM3 Mean Platelet Volume 10.0UM3 Immature Granulocyte % (Auto) 0.1% Neutrophils (%) (Auto) 58.4% Lymphocytes (%) (Auto) 32.6% Monocytes (%) (Auto) 6.4% Eosinophils (%) (Auto) 2.2% Basophils (%) (Auto) 0.3% Absolute Immature Granulocyte (auto 0.01T/MM3 Absolute Neutrophils (auto) 4.2T/MM3 Absolute Lymphocytes (auto) 2.4T/MM3 Absolute Monocytes (auto) 0.5T/MM3 Absolute Eosinophils (auto) 0.2T/MM3 Absolute Basophils (auto) 0.0T/MM3 Turbidity < 20 Sodium Level 147MEQ/L Potassium Level 3.5MEQ/L Chloride Level 108MEQ/L Carbon Dioxide Level 25MEQ/L Anion Gap 14MEQ/L Blood Urea Nitrogen 6.0MG/DL Creatinine 0.8MG/DL Glomerular Filtration Rate Calc 114 BUN/Creatinine Ratio 8RATIO Glucose Level 119MG/DL Calculated Osmolality 281MOSM/KG Calcium Level 9.4MG/DL Total Bilirubin 0.40MG/DL Icterus Index < 2 Aspartate Amino Transf (AST/SGOT) 22U/L Alanine Aminotransferase (ALT/SGPT) 46U/L Alkaline Phosphatase 91U/L Total Protein 6.6G/DL Albumin 4.2G/DL Globulin 2.4G/DL Albumin/Globulin Ratio 1.8RATIO Lipase 112U/L Chemistry Specimen Hemolysis < 15 (MELISSA FERREIRA DO) Medications Current ED Medications Ondansetron HCl (Zofran Odt) 4 mg O ONCE PO Last administered on 06/19/16 19: 02; Start 06/19/16 at 19:00; Stop 06/19/16 at 19:01; Status DC Acetaminophen (Tylenol Extra Strength) 1,000 mg O ONCE PO Last administered on 06/19/16 20:09; Start 06/19/16 at 20:00; Stop 06/19/16 at 20:14; Status DC (MELISSA FERREIRA DO) Progress Progress CBC and CMP /lipase are normal. No evidence of infection, anemia , liver abnormalities or pancreatitis. (JARON SMITH APRN) JARON SMITH APRN June 19, 2016 19:31 MELISSA FERREIRA DO June 19, 2016 22:40
--- OUTSIDE RECORDS SUMMARY | 2016-06-19 19:31 | XMS REPORT | Continuity of Care Document ---
Author Author [facility] Organization [facility] Address Unknown Phone Unavailable Care Team Providers Care Roll Carrier Name Role Phone GERONIMO DOYLE MD Primary Care Physician [phone] Insurance Providers Payer Name Policy Number Subscriber Name Relationship Medicare [id number] Jennifer Singh 20 Self [facility] [id number] Jennifer Singh 20 Self Problems Medical Problems [...] F (96.8 - 99.1) Temperature (Calculated Celsius) 36.25247 degrees C (36.0 - 37.3) Pulse Rate [...] Has specimen been collected/obtained? Y Urine Specific [place] April 30, 2014 11:30am 1.025 - Has [...] Prob. Contaminants Name: JENNIFER SINGH Unit #: [id number] : 1985 Sex: M Loc / Svc: ED DOS: 04/30/14 Signed Report #: [id number] DIAGNOSTIC IMAGING REPORT TYPE OF EXAM: CT [...] ADDON completed 02/18/14 TX/PRO/DX INJ SAME DRUG SENIOR [employer]GAGE LOAN PROCESSOR completed 02/18/14 TX/PRO/DX INJ SAME DRUG SENIOR MORTGAGE LOAN PROCESSOR completed 02/18/14 EMERGENCY DEPT VISIT completed 02/18/14"INJECTION, [...] METOCLOPRAMIDE HCL, UP TO 10 MG" completed 02/21/14079343"INFUSION, NORMAL SALINE SOLUTION , 1000 CC" completed 01/14/15 [id number]"INFUSION, NORMAL SALINE SOLUTION , 250 CC" completed 02/21/14 [id number]"LOW OSMOLAR CONTRAST MATERIAL, 300-399 MG/ML IODINE C [...] ADDON completed 04/17/14 TX/PRO/DX INJ SAME DRUG SENIOR MORTGAGE LOAN PROCESSOR completed 04/17/14 EMERGENCY DEPT VISIT completed 04/17/14 [id number]"INJECTION, HYDROMORPHONE, UP TO 4 MG" completed 04/17/14 [id number]"INJECTION, HYDROMORPHONE, UP TO 4 MG" completed 04/17/14 [id number]"INJECTION, ONDANSETRON HYDROCHLORIDE, PER 1 MG" completed 04/17/14 [id number]"INFUSION, NORMAL SALINE SOLUTION , 1000 CC" completed [...] ADDON completed 04/20/14 TX/PRO/DX INJ SAME DRUG SENIOR MORTGAGE LOAN PROCESSOR completed 04/20/14 EMERGENCY DEPT VISIT completed 04/20/14 [id number] ITEM OR SERVICE completed 04/20/14 [id number] ITEM OR SERVICE completed 04/20/14 [id number]"INJECTION, PANTOPRAZOLE SODIUM, PER VIAL" completed 04/20/14 DRUG SCR, UR,STAT completed 04/20/14"INJECTION, HYDROMORPHONE, UP TO 4 MG" completed 04/20/14"INJECTION, HYDROMORPHONE, UP TO 4 MG" completed 04/20/14"INJECTION, ONDANSETRON HYDROCHLORIDE, PER 1 MG" completed 04/20/14"INJECTION, FENTANYL CITRATE, 0.1 MG" completed 04/20/14"INFUSION, NORMAL SALINE SOLUTION , 1000 CC" completed 04/20/14"LOW OSMOLAR CONTRAST MATERIAL, 300-399 MG/ML IODINE C completed Encounters Encounter Location Date/Time Departed Emergency Room [facility] 04/30/14 11:05am Departed Emergency Room [facility] 04/25/14 1:09pm Departed Emergency Room [facility] 04/20/14 9:55pm Departed Emergency Room [facility] 04/17/14 1:13pm Departed Emergency Room [facility] 02/21/14 10:18pm Departed Emergency Room [facility] 02/18/14 6:33pm Recent Diagnosis
--- OUTSIDE RECORDS SUMMARY | 2016-06-19 19:34 | XMS REPORT ---
Author Author [facility], [facility] - Organization Unknown Address Unknown [...] (5.0-8.0 ) Protein Negative (Negative ) Specific [place] 1.022 (1.003-1.030 ) Collection Type: Clean Catch Urobilinogen Negative mg/dL (-<1.0 mg/dL) Bacteria Occasional A Epithelial Cells 0-2 /HPF RBC 10-20 /HPF A (0-2 /HPF) WBC 2-5 /HPF (0-4 /HPF)
[2016-06-19] MEDS ORDERED: ACETAMINOPHEN 500 MG TABLET PO ONE (20:00)
[2016-06-19] MEDS ORDERED: ONDA4TAB7 PO (20:03)
[2016-06-19] MEDS ORDERED: CEPH-583 PO (20:03)
[2016-06-19 20:10] VITALS: BP 119/74; PULSE 124; RESP 18; TEMP 97.8; O2SAT 99
--- NOTE | 2016-06-21 10:29 | DI ---
Indication: ITS.REASON: hematuria PROCEDURE: CT RENAL W/O CONTRAST: Encounter: Initial Comparison: March 07, 2016 Technique: Axial CT images were performed through the abdomen and pelvis without intravenous contrast. Coronal and sagittal two-dimensional reformats. Automated Exposure Control and Iterative Reconstruction dose reducing techniques were utilized. Findings: The lung bases are clear. The unenhanced contours of the liver, gallbladder, spleen, pancreas and adrenal glands are within normal limits. The kidneys are normal. No abdominal or pelvic adenopathy. No ureteral stones. The appendix is normal. Bone windows show no acute findings. Impression: No acute disease process seen. There is a preliminary report by [employer]. .
== END 2016-06-19 20:10 | disposition home or self-care (01) ==
LOC: ED 18:22
DX: R10.11 Right upper quadrant pain (principal); R10.13 Epigastric pain; R11.0 Nausea; Z76.5 Malingerer [conscious simulation]; N39.0 Urinary tract infection, site not specified; R31.9 Hematuria, unspecified
CPT/HCPCS: 36415; 74176; 80053; 81001; 83690; 85025; 99283; A9270